=== PATIENT | female | born 1930 | race Caucasian/White ===

== ENCOUNTER 2019-09-10 07:18 | Inpatient (IN) | payer MEDICARE ==
[~2019-09-10] VITALS: Ht 160 cm; Wt 57.6 kg
--- OUTSIDE RECORDS SUMMARY | ~2019-09-10 | XMS | Encounter Summary ---
Demographics + + + | Address | [address] | | | [place] [address] | + + + | Home Phone | | + + + | Preferred Language | Unknown | + + + | Marital Status | | + + + | Yazidi Affiliation | Unknown | + + + | Race | Unknown | + + + | Ethnic Group | Unknown | + + + Author + + + | Author | [facility] | | | and [place] | + + + | Organization | [facility] | | | and [place] | + + + | Address | Unknown | + + + | Phone | Unavailable | + + + Support + + +---------+ + | Name | Relationship | Address | Phone | + + +---------+ + | Regulo Hal | ECON | Unknown | | + + +---------+ + Care Team Providers + +------+ + | Care Building Construction Teacher Name | Role | Phone | + +------+ + | Ramon Richardson MD | PCP | | + +------+ + Reason for Visit + + + | Reason | Comments | + + + | Medication Refill | | + + + Encounter Details +--------+ + + + + | Date | Type | Department | Care Team | Description | +--------+ + + + + | 11/09/ | Telephone | [facility] [place] | [place], | Medication Refill | | 2016 | | PULMONARY [address] | Corrie Bell MD | | | | | [place], | | | | | | [place] [address] | | | | | | [phone] | | | +--------+ + + + + Social History + +-------+ +--------+------+ | Tobacco Use | Types | Packs/Day | Years | Date | | | | | Used | | + +-------+ +--------+------+ | Never Smoker | | | | | + +-------+ +--------+------+ + +---+---+---+ | Smokeless Tobacco: | | | | | Never Used | | | | + +---+---+---+ + + | Comments: her parents both smoked, also worked at a [employer] | + + + + +---------+ + | Alcohol Use | Drinks/Week | oz/Week | Comments | + + +---------+ + | No | 0 Standard drinks | 0.0 | | | | or equivalent | | | + + +---------+ + + + + | Sex Assigned at | Date Recorded | | | | + + + | Not on file | | + + + + + + + | Job Start Date | Occupation | Industry | + + + + | Not on file | Not on file | Not on file | + + + + + + + + | Travel History | Travel Start | Travel End | + + + + + + | No recent travel history available. | + + documented as of this encounter Plan of Treatment Not on filedocumented as of this encounter Visit Diagnoses Not on filedocumented in this encounter"
--- OUTSIDE RECORDS SUMMARY | ~2019-09-10 | XMS | Encounter Summary ---
Demographics + + + | Address | [address] | | | [place] [address] | + + + | Home Phone | | + + + | Preferred Language | Unknown | + + + | Marital Status | | + + + | Episcopal Affiliation | Unknown | + + + | Race | Unknown | + + + | Ethnic Group | Unknown | + + + Author + + + | Author | [facility] | | | and [place] | + + + | Organization | [facility] | | | and [place] [...] Team Providers + +------+ + | Care Cruise Director Name | Role | Phone | + +------+ + | Rosaura Jaime | PCP | | | PA-C | | | + +------+ + Encounter Details +--------+ + + + + | Date | Type | Department | Care Team | Description | +--------+ + + + + | 05/06/ | Orders Only | [facility] | Provider, | | | 2018 | | [facility] GENER[facility] OP | [address] | | | | | [address] | [place] | | | | | [address] [place], [place] | [place] [address] | | | | | [address] | | | | | | [phone] | | | +--------+ + + + + Social History + +-------+ +--------+------+ | Tobacco Use | Types | Packs/Day | Years | Date | | | | | Used | | + +-------+ +--------+------+ | Passive Smoke | | | | | | Exposure - Never | | | | | | Smoker | | | | | + +-------+ +--------+------+ + +---+---+---+ | Smokeless Tobacco: | | | | | Never Used | | | | + +---+---+---+ + + +---------+ + | Alcohol Use [...]
--- OUTSIDE RECORDS SUMMARY | ~2019-09-10 | XMS | Encounter Summary ---
Demographics + + + | Address | [address] | | | [place] [address] | + + + | Home Phone | | + + + | Preferred Language | Unknown | + + + | Marital Status | | + + + | Advent Affiliation | MET | + + + | Race | White | + + + | Ethnic Group | Not or | + + + Author + + + | Author | [facility] | + + + | Organization | [facility] | + + + | Address | Unknown | + + + | Phone | Unavailable | + + + Support + + + + + | Name | Relationship | Address | Phone | + + + + + | Regulo Hong | ECON | [address] | | | | | [place], [place] | | | | | [address] | | + + + + + Care Team Providers + +------+ + | Care Forestry Engineer Name | Role | Phone | + +------+ + PCP | Unavailable | + +------+ + Encounter Details +--------+ + + + + | Date | Type | Department | Care Team | Description | +--------+ + + + + | 01/31/ | Transcribed | [facility] at | Dictation, Other | Transcribed | | 1995 | | [facility] [address] | | | | | | [address] | | | | | | Mailcode: [id number] | | | | | | [place] | | | | | | [place], | | | | | | [place] [address] | | | | | | [phone] | | | +--------+ + + + + Social History + +-------+ +--------+------+ | Tobacco Use | Types | Packs/Day | Years | Date | | | | | Used | | + +-------+ +--------+------+ | Never Assessed | | | | | + +-------+ +--------+------+ + + + | Sex Assigned at [...] + + documented as of this encounter Progress Notes Interface, Lead Tank Mechanic In - 01/04/2007 5:06 AM PDT [address] [address] or Department of Obstetrics and Gynecology, [facility] February 01, 1996 NAE DALE MD [address] [place] [address] RE: UNA HONG MR#: [id number] Dale: I am enclosing some operative reports of your patient, Una Hong. 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 She had a somewhat stormy immediate postoperative course but has subsequently done quite well. She now feels more confident about her progress. She has previously been under the care of Dr. Wren, in [place], for her hypertension and arthritis, and I have continued to see her postoperatively, where her main residual concern has been of urge incontinence that troubles her, particularly at nighttime. On today's visit, I gave her some Levsinex for use at night to see whether we could suppress some of the bladder irritability. She is going to be staying in [place] for the next month and was anxious that you should be fully informed of the recent medical events in case she needs to consult with you. Thank you for being available. If you have any questions, I could be reached at . With thanks, Yours sincerely, Hieu Robert M.D. Professor and Tank Washer, Obstetrics and Gynecology EPK:brennan C: 02/06/96 rh enclosures (2) operative report discharge summary documented in this encounter Plan of Treatment Not on filedocumented as of this encounter Visit Diagnoses Not on filedocumented in this encounter"
--- OUTSIDE RECORDS SUMMARY | ~2019-09-10 | XMS | Encounter Summary ---
Demographics + + + | Address | [address] | | | [place] [address] | + + + | Home Phone | | + + + | Preferred Language | Unknown | + + + | Marital Status | | + + + | Taoism Affiliation | Unknown | + + + | Race | Unknown | + + + | Ethnic Group | Unknown | + + + Author + + + | Author | [facility] | | | and [place] | + + + | Organization | [facility] | | | and [place] [...] Team Providers + +------+ + | Care Fleet Salesperson Name | Role | Phone | + +------+ + | Ramon Richardson MD | PCP | | + +------+ + Reason for Visit + + + | Reason | Comments | + + + | Establish Care | | + + + Evaluate & Treat (Routine) +--------+--------+ + + + + | Status | Reason | Specialty | Diagnoses / | Referred By | Referred To | | | | | Procedures | Contact | Contact | +--------+--------+ + + + + | Closed | | Pulmonology | Diagnoses | Marier, | Perri, | | | | | Chronic | Ramon Sosa, | Corrie Bell | | | | | airway | MD [address] | MD [address] | | | | | obstruction, | [address] | [address] | | | | | not | [address] | [place], | | | | | elsewhere | [place], | [place] [address] | | | | | classified | [place] | | | | | | Procedures | [address] | | | | | | NEW PT | Phone: | | | | | | CONSULT | [phone] | | | | | | | Fax: | | | | | | | [phone] | | +--------+--------+ + + + + Encounter Details +--------+---------+ + + + | Date | Type | Department | Care Team | Description | +--------+---------+ + + + | 10/20/ | Office | [facility] | Perri, | COPD (chronic | | 2014 | Visit | PULMONARY [address] | Corrie Bell MD | obstructive | | | | [place], | | pulmonary disease) | | | | [place] [address] | | ([facility]) (Primary Dx); | | | | [phone] | | Aortic valve | | | | | | stenosis | +--------+---------+ + + + Social History + +-------+ +--------+------+ | Tobacco Use | Types | Packs/Day | Years | Date | | | | | Used | | + +-------+ +--------+------+ | Never Smoker | | | | | + +-------+ +--------+------+ + + | Comments: her parents both smoked, also worked at [employer] | + + + + +---------+ + | Alcohol Use | Drinks/Week | oz/Week | Comments | + + +---------+ + | No | | | | + + +---------+ + [...] + + documented as of this encounter Last Filed Vital Signs + + + + + | Vital Sign | Reading | Time Taken | Comments | + + + + + | Blood Pressure | 124/58 | 10/20/2014 3:12 PM | | | | | PST | | + + + + + | Pulse | 92 | 10/20/2014 3:12 PM | | | | | PST | | + + + + + | Temperature | 36.4 C (97.6 F) | 10/20/2014 3:12 PM | | | | | PST | | + + + + + | Respiratory Rate | - | - | | + + + + + | Oxygen Saturation | 90% | 10/20/2014 3:12 PM | | | | | PST | | + + + + + | Inhaled Oxygen | - | - | | | Concentration | | | | + + + + + | Weight | 59.4 kg (131 lb) | 10/20/2014 3:12 PM | | | | | PST | | + + + + + | Height | 157.5 cm (5' 2") | 10/20/2014 3:12 PM | | | | | PST | | + + + + + | Body Mass Index | 23.96 | 10/20/2014 3:12 PM | | | | | PST | | + + + + + documented in this encounter Patient Instructions Patient Instructions Corrie Rayo MD - 10/20/2014 4:24 PM PSTStay on Qvar as bef ore. Start on Spiriva one capsule inhaled once daily. Start on ProAir 2 puffs inhaled every 6 hours as needed. Do an overnight oxygen test through [facility]. Call the [facility] before yo u pick it up to make sure they have a box available. You will supply chain consultant a box at the [employer]. Do the test on room air. Wear the finger probe through the night and then return the box for a download the next day. Do walking oxygen test at [facility]. Use a spacer with the Qvar and ProAir. documented in this encounter Progress Notes Corrie Rayo MD - 10/20/2014 3:32 PM PSTFormatting of this note might be differe nt from the original. Pulmonary Consult Referring Provider: Ramon Richardson MD HPI Una Hong is a 84 y.o. female patient of Ramon Richardson here today for evalua tion of COPD. She notes she was diagnosed with COPD a couple of years ago, and how long she has been on a n inhaler. She has had shortness of breath for about 2 years as well. She feels like her ovn athing has been about the same over the last 2 years. She notes she has had pneumonia and katie nolan has also has episodes of bronchitis a couple of times a year, basically any time she gets a cold. Currently they are able to walk 100 feet at their own pace on level ground, using a walker or a shopping cart to assist. The distance walked is predominately limited by shortness of b reath or back pain. One year ago, she feels that they could walk possibly a little further, maybe twice the distance. She is not exercising regularly at the moment. She was doing wate r walking, but not with the weather being cold. She does cough in the mornings when she first gets up (her thinks for 1-2 hours), a nd does produce mucous. The mucous is clear typically in color. She has not had hemoptysis. Triggers for their shortness of breath include exertion, and she notes she is more short of breath towards the end of the day. Relieving factors include relaxing. Treatments that they have tried to this point include Qvar 40 mcg 2 puffs twice daily and a rescue inhaler (she is not sure which one). Currently they are on Qvar 40 mcg 2 puffs twice daily. She thinks this has helped her some. She has been taking this for about 2 years. She has never used the rescue inhaler. She has not been evaluated for nocturnal oxygen and does not use it. She has not had ambula ting oximetry testing. Past Medical History Past Medical History Diagnosis Date COPD (chronic obstructive pulmonary disease) (HCC) Peptic ulcer disease GERD (gastroesophageal reflux disease) Hiatal hernia Hypertension Hypothyroidism Urine incontinence Aortic valve stenosis trivial Hearing loss Osteoarthritis Osteoporosis Plantar wart RLS (restless legs syndrome) Scoliosis Pneumonia Pulmonary nodule Macular degeneration Past Surgical History Past Surgical History Procedure Date Hernandez and bso 1996 Cholecystectomy 1996 Total hip arthroplasty 1988 Left Abscess drainage on calf 2002 Bladder suspension 1995 Upper gastrointestinal endoscopy 1995 Family History: Family History Problem Relation Age of Onset COPD Father Asthma Father Allergies Father Hypertension Father Tobacco Use Father Asthma Sister Hypertension Mother Stroke Mother Social History: History Social History Marital Status: Spouse Name: N/A Number of Children: N/A Years of Education: N/A 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 Social History Main Topics Smoking status: Never Smoker Smokeless tobacco: None Comment: her parents both smoked, also worked at a [employer] Alcohol Use: No Drug Use: No Sexually Active: None Other Topics Concern None Social History Narrative Lives: in [place] With: her husbandGrew up: in [place] Has previously lived in: [place], [place] Exposure to toxic chemicals: has been exposed to halon (1301) before, they had to evacuate t he computer room at the timeExposure to asbestos: noExposure to tuberculosis: no Has had a P PD or Quantiferon before: noHas pets at home: no Has ever owned birds: no Other animal expos ures: has had a dog and cat beforeHobbies: playing cards Allergies: Allergies Allergen Reactions Lisinopril Cough Medications: Outpatient Encounter Prescriptions as of 10/20/2014 Medication Sig Dispense Refill beclomethasone (QVAR) 40 mcg/puff inhaler Inhale 2 puffs into the lungs 2 times daily. benzonatate (TESSALON PERLES) 100 mg capsule Take 100 mg by mouth 3 times daily as need ed. Calcium Carbonate (CALCIUM 600 PO) Take by mouth Daily. Cholecalciferol (VITAMIN D-3) 2000 units CAPS Take by mouth Daily. diclofenac (VOLTAREN-XR) 100 mg ER tablet Take 100 mg by mouth daily (with breakfast). Diclofenac Potassium 50 MG PACK Take by mouth. Docosahexaenoic Acid (DHA OMEGA 3) 100 MG CAPS Take by mouth. levothyroxine (SYNTHROID, LEVOTHROID) 150 mcg tablet Take 150 mcg by mouth every mornin g (before breakfast). Multiple Vitamins-Minerals (MULTIVITAMIN PO) Take by mouth Daily. olmesartan-hydrochlorothiazide (BENICAR HCT) 40-25 MG per tablet Take 0.[address] tablets [address] [facility] Daily. omeprazole (PRILOSEC) 20 mg capsule Take 20 mg by mouth every morning (before breakfast ). pramipexole (MIRAPEX) 0.25 mg tablet Take 0.25 mg by mouth 3 times daily. pseudoePHEDrine (SUDAFED) 30 mg tablet Take 30 mg by mouth every 4 hours as needed. traMADol (ULTRAM) 50 mg tablet Take 50 mg by mouth every 6 hours as needed. Facility-Administered Encounter Medications as of 10/20/2014 Medication Dose Route Frequency Provider Last Rate Last Dose [COMPLETED] albuterol 2.5 mg/3 mL nebulizer solution 2.5 mg 2.5 mg Nebulization RT Onc e Corrie Rayo MD 2.5 mg at 10/20/14 1407 Review of Systems Constitutional: Denies fever, chills, sweats, and change in weight. Eyes: Denies vision change and eye irritation. ENT: Denies earache, decreased hearing, nosebleeds, sore throat, and hoarseness. She does get nasal drainage and congestion. It does not seem to be seasonal. Resp: See HPI. CV: Denies chest pain, palpitations, syncope, and peripheral edema. GI: Denies heartburn, nausea, vomiting, and abdominal pain. : She does get some urinary incontinence, but no difficulty urinating. Musculoskeletal: Denies joint swelling. Has joint stiffness and some leg cramps. Derm: Denies rash, itching, dryness, and suspicious lesions. Neurologic: Denies frequent headaches, seizures, and vertigo. She has tingling in her hand, which is related to neck arthritis. Psych: Denies depression, anxiety, and suicidal ideation. Endo: Denies cold intolerance, heat intolerance, and unusual weight change. Heme: Denies abnormal bruising, bleeding, and enlarged lymph nodes. Allergy: Denies food allergies, allergic rash. Objective BP 124/58 | Pulse 92 | Temp 36.4 C (97.6 F) (Tympanic) | Ht 1.575 m (5' 2") | Wt 59.421 kg (131 lb) | BMI 23.95 kg/m2 | SpO2 90% RA General Appearance: Alert, cooperative, no distress, appears stated age Head: Normocephalic, without obvious abnormality, atraumatic Eyes: PERRL, conjunctiva clear, no scleral icterus, EOM's intact Ears: Normal TM's, external auditory canals, slightly diminished acuity Nose: Nares normal, septum midline, mucosa normal Mouth: No oral lesions or exudate Neck: Supple, symmetrical, no adenopathy Lungs: No accessory muscle use, breath sounds are diminished bilaterally with prolongatio n of the expiratory phase, no wheezes, crackles or rhonchi Chest Wall: No deformity Heart: Regular rate and rhythm, 2/6 systolic murmur, no rub or gallop Abdomen: Soft, non-tender, non-distended Extremities: No cyanosis, clubbing, or edema Pulses: Radial pulses 2+ and symmetric Skin: Warm and dry Lymph nodes: Cervical and supraclavicular nodes normal Data: Chest x-ray done May 27, 2014 was reviewed and interpreted in clinic today. It shows a l arge non reduced hiatal hernia. Pulmonary function tests were performed prior to clinic today and were reviewed and interpr eted in clinic today. They show moderate obstructive disease with a significant response to inhaled bronchodilator on spirometry, and a moderately reduced diffusion capacity. She coul d not pant fast enough to do lung volume testing. Echocardiogram was performed on April 21, 2011 and results were reviewed in clinic today. It shows a densely sclerotic aortic valve, with a 15 mmHg gradient, mild AI, mild MR, mild TR, mild pulmonary hypertension. LV systolic function was normal with grade 1 diastolic dysfunc tion. Ramon Richardson's notes were reviewed in clinic today. Immunization History Administered Date(s) Administered PNEUMOCOCCAL POLYSACCHARIDE 23-VALENT (PPSV23) 10/20/2011 TRIVALENT INFLUENZA, PRESERATIVE FREE (PED/ADOL/ADULT) 08/14/2014 Assessment 1. COPD (chronic obstructive pulmonary disease) (HCC) - This is moderate with a significant bronchodilator effect noted, though no asthma type symptoms noted. I suggested she stay on her ICS given bronchodilator effect seen, and start on a LAAC for now, with consideration of also transitioning to a ICS/LABA inhaler as well. In addition, given borderline oxygen satu rations, I recommended ambulating oximetry and overnight oximetry testing. 2. Aortic valve stenosis - This was trivial back in 2010 with dense sclerosis noted. I do n ot think that a more recent echo has been obtained, and she does not appear to have volume i ssues on exam today, but does have a fairly prominent murmur (which could be just the sclero sis alone). If we cannot improve her symptoms, consideration could be made for repeat echoca rdiogram. Plan 1.Stay on Qvar twice daily. 2.Start on Spiriva once daily. 3.Start on ProAir 2 puffs every 6 hours as needed. 4. Check overnight oximetry on room air through [facility]. 5. Check ambulating oximetry at [facility]. 6. I recommended use of a spacer with both her Qvar and her ProAir, and this was ordered. She was advised to call if new pulmonary symptoms were to develop. Return to clinic in 2 months, or sooner with concerns. CC: Ramon Richardson MD Portions of this report were transcribed using voice recognition software. Every effort wa s made to ensure accuracy; however, inadvertent computerized dock manager errors may be pre sent. documented in t his encounter Plan of Treatment + + +--------+ + + | Name | Type | Priori | Associated Diagnoses | Order Schedule | | | | ty | | | + + +--------+ + + | Ambulating oximetry- | Respiratory | CHRIS | COPD (chronic | Expected: | | Ancillary | Care | | obstructive | 10/20/2014, Expires: | | | | | pulmonary disease) | 10/20/2015 | | | | | (HCC) | | + + +--------+ + + | Overnight oximetry, | Respiratory | Routin | COPD (chronic | Expected: | | room air | Care | e | obstructive | 10/20/2014, Expires: | | | | | pulmonary disease) | 10/20/2015 | | | | | (HCC) | | + + +--------+ + + documented as of this encounter Visit Diagnoses + + | Diagnosis | + + | COPD (chronic obstructive pulmonary disease) (HCC) - Primary Chronic airway | | obstruction, not elsewhere classified | + + | Aortic valve stenosis Aortic valve disorders | + + documented in this encounter
--- OUTSIDE RECORDS SUMMARY | ~2019-09-10 | XMS | Encounter Summary ---
Demographics + + + | Address | [address] | | | [place] [address] | + + + | Home Phone | | + + + | Preferred Language | Unknown | + + + | Marital Status | | + + + | Worship Affiliation | MET | + + + | Race | White | + + + | Ethnic Group | Not or | + + + Author + + + | Author | [facility] | + + + | Organization | [facility] | + + + | Address | Unknown | + + + | Phone | Unavailable | + + + Support + + + + + | Name | Relationship | Address | Phone | + + + + + | Regulo Hong | ECON | [address] | | | | | [place], [place] | | | | | [address] | | + + + + + Care Team Providers + +------+ + | Care High School History Teacher Name | Role | Phone | + +------+ + PCP | Unavailable | + +------+ + Encounter Details +--------+ + + + + | Date | Type | Department | Care Team | Description | +--------+ + + + + | 10/31/ | Results | LAB [facility] [address] | Reid, Faculty | | | 1995 | Only | [address] | [phone] | | | | | [place], [place] | | | | | | [address] | | | | | | [phone] | | | +--------+ + + + [...] Not on filedocumented as of this encounter Procedures + +--------+ + + + | Procedure Name | Priori | Date/Time | Associated Diagnosis | Comments | | | ty | | | | + +--------+ + + + | SURGICAL PATHOLOGY | Routin | 10/31/1995 | | Results for this | | | e | | | procedure are in the | | | | | | results section. | + +--------+ + + + documented in this encounter Results SURGICAL PATHOLOGY (10/31/1995) + + + + + + | Component | Value | Ref Range | Performed | Pathologist | | | | | At | Signature | + + + + + + | SURGICAL | SOURCE OF SPECIMEN: SEE | | [facility] | | | PATHOLOGY | RESULTS | | DEPARTMENT | | | | Preliminary | | OF | | | | History:CLINICAL | | PATHOLOGY | | | | HISTORYThe patient is a | | | | | | 65 year old | | | | | | postmenopausal female | | | | | | with | | | | | | completeprocidentia. | | | | | | She is 4 para | | | | | | 4 and does not receive | | | | | | any hormonaltherapy. | | | | | | GROSS DESCRIPTIONTwo | | | | | | specimens are received | | | | | | labelled as follows: | | | | | | #1 UTERUS AND CERVIX: | | | | | | The specimen is | | | | | | received fresh and | | | | | | consists of auterus with | | | | | | attached cervix and | | | | | | vaginal cuff weighing 50 | | | | | | grams in toto.Bilateral | | | | | | fallopian tubes, | | | | | | ovaries and parametria | | | | | | are not present. | | | | | | Theuterus and cervix | | | | | | measure 8.5 cm x 5.0 x | | | | | | 2.5 cm. The serosal | | | | | | surface issmooth, | | | | | | pink-rod and glistening. | | | | | | The uterus is opened at | | | | | | 3:00. Thevaginal cuff | | | | | | is 0.2 to 0.3 cm in | | | | | | length and has a smooth | | | | | | white-tanmucosa without | | | | | | grossly evident lesions. | | | | | | The ectocervical mucosa | | | | | | issmooth and pale rod. | | | | | | A firm nodule measuring | | | | | | 1.5 x 0.8 x 0.8 cm | | | | | | ispalpated within the | | | | | | posterior portion of the | | | | | | cervix. The cervical | | | | | | mucosais white-rod, | | | | | | smooth and glistening. | | | | | | The endometrial cavity | | | | | | istriangular and | | | | | | measures 2.5 cm in | | | | | | intercornual diameter | | | | | | and 3.5 cm inlength. The | | | | | | endometrium is | | | | | | white-rod and thin, | | | | | | measuring 1 mm | | | | | | inthickness. No focal | | | | | | lesions are seen. Serial | | | | | | cross sections reveal | | | | | | themyometrium to be | | | | | | generally rod and | | | | | | unremarkable, measuring | | | | | | 1.5 cm ingreatest | | | | | | thickness. | | | | | | Bundling Machine Operator sections | | | | | | are submitted as | | | | | | follows:Cassette A, | | | | | | posterior ectocervix; | | | | | | Cassette B, anterior | | | | | | cervix; CassetteC, full | | | | | | thickness section of | | | | | | endomyometrium; Cassette | | | | | | D, | | | | | | representativesections | | | | | | of endometrium. #2 | | | | | | VAGINAL MUCOSA: The | | | | | | specimen is received in | | | | | | formalin and consistsof | | | | | | two fragments of | | | | | | white-rod mucosa. One | | | | | | fragment measures 7.0 x | | | | | | 3.0 x0.5 cm and the | | | | | | other fragment measures | | | | | | 6.0 x 3.0 x 0.5 cm. | | | | | | The mucosalsurfaces | | | | | | are white-rod and shiny | | | | | | with no grossly visible | | | | | | lesions. Thespecimen | | | | | | is serially sectioned | | | | | | and dental sales representative | | | | | | sections are submittedin | | | | | | cassettes 2A-B. | | | | | | All tissue sections | | | | | | taken are submitted for | | | | | | microscopic | | | | | | evaluation.Case dictated | | | | | | by: Harshal Flower | | | | | | MSIII/cc/kag | | | | | | FINAL DIAGNOSISUTERUS | | | | | | AND CERVIX: CERVIX: | | | | | | NABOTHIAN CYSTS | | | | | | SQUAMOUS METAPLASIA | | | | | | HYPERKERATOSIS | | | | | | ENDOMETRIUM: NO | | | | | | DIAGNOSTIC ABNORMALITY | | | | | | MYOMETRIUM: | | | | | | ADENOMYOSISVAGINAL | | | | | | MUCOSA: NO DIAGNOSTIC | | | | | | ABNORMALITY Case | | | | | | reviewed by: Tino | | | | | | Stephen DominguezT: | | | | | | [birth year]f My | | | | | | electronic signature | | | | | | indicates that I have | | | | | | personally reviewed | | | | | | alldiagnostic slides, | | | | | | the gross and/or | | | | | | microscopic portion of | | | | | | thisreport and | | | | | | formulated the final | | | | | | diagnosis. | | | | + + + + + + + + | Specimen | + + | Other | + + + + + + + | Performing | Address | City/State/Zipcode | Phone Number | | Organization | | | | + + + + + | [facility] | [address] | [place] [address] | | | PATHOLOGY | [address] | | | + + + + + documented in this encounter Visit Diagnoses Not on filedocumented in this encounter"
--- OUTSIDE RECORDS SUMMARY | ~2019-09-10 | XMS | Encounter Summary ---
Demographics + + + | Address | [address] | | | [place] [address] | + + + | Home Phone | | + + + | Preferred Language | Unknown | + + + | Marital Status | | + + + | Advent Affiliation | Unknown | + + + | Race | Unknown | + + + | Ethnic Group | Unknown | + + + Author + + + | Author | [facility] | | | and [place] | + + + | Organization | [facility] | | | and [place] | [...] Team Providers + +------+ + | Care Setter Out Name | Role | Phone | + +------+ + | Ramon Richardson MD | PCP | | + +------+ + Encounter Details +--------+ + + + + | Date | Type | Department | Care Team | Description | +--------+ + + + + | 09/28/ | Orders Only | [facility] | [place], | COPD (chronic | | 2013 | | PULMONARY [address] | Corrie Bell MD | obstructive | | | | [place], | | pulmonary disease) | | | | [place] [address] | | ([facility]) (Primary Dx) | | | | [phone] | | | +--------+ + + + [...] Not on filedocumented as of this encounter Results PFT PULMONARY FUNCTION TESTING ORDERS Full PFT (Yony w/BD, lung volumes, diffusion)?: Yes (10/26/2014 6:25 PM PST) + + + | Narrative | Performed At | + + + | Corrie Rayo MD 10/26/2014 18:25 PULMONARY | | | FUNCTION TESTING METHOD: Spirometry was obtained pre and post | | | administration of inhaled bronchodilator. Lung volumes were not | | | obtained, as the patient was unable to pant fast enough. Diffusion | | | capacity was obtained by single breath method and was not corrected | | | for a measured hemoglobin. ATS standards were met. | | | SPIROMETRY: Prior to administration of inhaled bronchodilator, FVC | | | was normal at 2.01 L or 87% of predicted. FEV1 was moderately | | | reduced at 0.85 L or 51% of predicted. FEV1/FVC ratio was reduced at | | | 42%. After administration of inhaled bronchodilator, FVC increased | | | by 19 % to 2.38 L or 103% of predicted. FEV1 increased by 22 % to | | | 1.04 L or 63% of predicted. FEV1/FVC ratio was reduced at 44%. | | | DIFFUSION CAPACITY: Diffusion capacity was moderately reduced at | | | 10.6 mL/mmHg per minute or 54% of predicted and was not corrected | | | for a measured hemoglobin. IMPRESSION: Spirometry is consistent | | | with moderate obstructive physiology. There was a significant | | | response to inhaled bronchodilator based on change in FVC. Diffusion | | | capacity is moderately reduced and is not corrected for measured | | | hemoglobin. Electronically signed by: Corrie Rayo MD | | | 10/26/2014 18:20 [facility] CC: | | | Ramon Richardson | | + + + + + | Procedure Note | + + | Corrie Rayo MD - 10/26/2014 6:20 PM PST PULMONARY FUNCTION TESTING | | METHOD: Spirometry was obtained pre and post administration of inhaled bronchodilator. | | Lung volumes were not obtained, as the patient was unable to pant fast enough. Diffusion | | capacity was obtained by single breath method and was not corrected for a measured | | hemoglobin. ATS standards were met. SPIROMETRY: Prior to administration of inhaled | | bronchodilator, FVC was normal at 2.01 L or 87% of predicted. FEV1 was moderately | | reduced at 0.85 L or 51% of predicted. FEV1/FVC ratio was reduced at 42%. After | | administration of inhaled bronchodilator, FVC increased by 19 % to 2.38 L or 103% of | | predicted. FEV1 increased by 22 % to 1.04 L or 63% of predicted. FEV1/FVC ratio was | | reduced at 44%.DIFFUSION CAPACITY: Diffusion capacity was moderately reduced at 10.6 | | mL/mmHg per minute or 54% of predicted and was not corrected for a measured | | hemoglobin.IMPRESSION: Spirometry is consistent with moderate obstructive physiology. | | There was a significant response to inhaled bronchodilator based on change in FVC. | | Diffusion capacity is moderately reduced and is not corrected for measured | | hemoglobin.Electronically signed by: Corrie Rayo MD 10/26/2014 18:20[facility] | | [facility] | |Electronically signed by: Corrie Rayo MD 10/26/2014 18:20 | |[facility] | | | |CC: Ramon Richardson | + + documented in this encounter Visit Diagnoses + + | Diagnosis | + + | COPD (chronic obstructive pulmonary disease) (HCC) - Primary Chronic airway | | obstruction, not elsewhere classified | + + documented in this encounter"
--- OUTSIDE RECORDS SUMMARY | ~2019-09-10 | XMS | Clinical Summary ---
Demographics + + + | Address | [address] | | | [place] [address] | + + + | Home Phone | | + + + | Preferred Language | Unknown | + + + | Marital Status | | + + + | Scientology Affiliation | Unknown | + + + | Race | Unknown | + + + | Ethnic Group | Unknown | + + + Author + + + | Author | [facility] | | | and [place] | + + + | Organization | [facility] | | | and [place] | [...] Team Providers + +------+ + | Care Water Project Manager Name | Role | Phone | + +------+ + | Rosaura Jaime | PCP | | | PA-C | | | + +------+ + Allergies + + + + + + | Active Allergy | Reactions | Severity | Noted | Comments | | | | | Date | | + + + + + + | Lisinopril | Other (See Comments) | Low | 09/28/20 | Cough | | | | | 14 | | + + + + + + | Naproxen | Other (See Comments) | | 04/17/20 | Reaction not | | | | | 18 | specified in outside | | | | | | medical records | + + + + + + Medications + + + +---------+------+------+-------+ | Medication | Sig | Dispensed | Refills | Star | End | Statu | | | | | | t | Date | s | | | | | | Date | | | + + + +---------+------+------+-------+ | Calcium Carbonate | Take 600 mg by mouth | | 0 | | | Activ | | (CALCIUM 600 PO) | Daily. | | | | | e | + + + +---------+------+------+-------+ | Docosahexaenoic | Take by mouth. | | 0 | | | Activ | | Acid (DHA OMEGA 3) | | | | | | e | | 100 MG CAPS | | | | | | | + + + +---------+------+------+-------+ | Multiple | Take by mouth | | 0 | | | Activ | | Vitamins-Minerals | Daily. | | | | | e | | (MULTIVITAMIN PO) | | | | | | | + + + +---------+------+------+-------+ | omeprazole | Take 20 mg by mouth | | 0 | | | Activ | | (PRILOSEC) 20 mg | every morning | | | | | e | | capsule | (before breakfast). | | | | | | + + + +---------+------+------+-------+ | traMADol (ULTRAM) | Take 100 mg by mouth | | 0 | | | Activ | | 50 mg tablet | 4 times daily. | | | | | e | + + + +---------+------+------+-------+ | Cholecalciferol | Take by mouth | | 0 | | | Activ | | (VITAMIN D-3) 2000 | Daily. | | | | | e | | units CAPS | | | | | | | + + + +---------+------+------+-------+ | Spacer/Aero | Use with inhaler as | 1 each | 1 | 01/1 | | Activ | | Chamber Mouthpiece | directed. | | | 3/20 | | e | | MISC | | | | 15 | | | + + + +---------+------+------+-------+ | albuterol (PROAIR | Inhale 2 puffs into | 1 | 5 | 03/2 | | Activ | | HFA) 90 mcg/puff | the lungs every 6 | Inhaler | | 2/20 | | e | | inhaler | hours as needed for | | | 16 | | | | | Wheezing or | | | | | | | | Shortness of Breath. | | | | | | + + + +---------+------+------+-------+ | losartan (COZAAR) | Take 100 mg by mouth | | 0 | | | Activ | | 100 MG tablet | Daily. | | | | | e | + + + +---------+------+------+-------+ | NITROFURANTOIN | Take by mouth | | 0 | | | Activ | | MACROCRYSTAL PO | Daily. | | | | | e | + + + +---------+------+------+-------+ | DULoxetine | Take 60 mg by mouth | | 0 | | | Activ | | (CYMBALTA) [address] | Daily. | | | | | e | | capsule | | | | | | | + + + +---------+------+------+-------+ | gabapentin | Take 300 mg by mouth | | 0 | | | Activ | | (NEURONTIN) 300 mg | 3 times daily. | | | | | e | | capsule | | | | | | | + + + +---------+------+------+-------+ | | Inhale 1 puff into | | 0 | 04/1 | | Activ | | umeclidinium-vilante | the lungs. | | | 0/20 | | e | | rol (ANORO ELLIPTA) | | | | 18 | | | | 62.5-25 mcg/puff | | | | | | | | inhaler | | | | | | | + + + +---------+------+------+-------+ | diclofenac | Take 50 mg by mouth | | 0 | | | Activ | | (VOLTAREN) 50 mg EC | 2 times daily. | | | | | e | | tablet | | | | | | | + + + +---------+------+------+-------+ | pramipexole | TAKE ONE TABLET BY | 180 | 0 | 09/0 | | Activ | | (MIRAPEX) 0.25 mg | MOUTH TWICE A DAY | tablet | | 5/20 | | e | | tablet | | | | 18 | | | + + + +---------+------+------+-------+ | levothyroxine | Take 150 mcg by | | 0 | | | Activ | | (SYNTHROID) 150 mcg | mouth every morning. | | | | | e | | tablet | | | | | | | + + + +---------+------+------+-------+ | Misc Natural | Take by mouth | | 0 | | | Activ | | Products | Daily. | | | | | e | | (WCNXZX-LHYWDOROD-JS | | | | | | | | M COMPLEX) TABS | | | | | | | + + + +---------+------+------+-------+ | | Take 1 tablet by | | 0 | | | Activ | | HYDROcodone-acetamin | mouth every 6 hours | | | | | e | | ophen (NORCO) 5-325 | as needed for Pain. | | | | | | | mg per tablet | | | | | | | + + + +---------+------+------+-------+ | | Take by mouth. | | 0 | | | Activ | | GLUCOSAMINE-CHONDROI | | | | | | e | | TIN PO | | | | | | | + + + +---------+------+------+-------+ | albuterol 90 | Inhale 2 puffs into | | 0 | 02/2 | 02/2 | Activ | | mcg/puff inhaler | the lungs every 4 | | | 0/20 | 0/20 | e | | | hours as needed for | | | 19 | 20 | | | | Wheezing. | | | | | | + + + +---------+------+------+-------+ | | Inhale 1 puff into | | 0 | 07/2 | | Activ | | umeclidinium-vilante | the lungs Daily. | | | 4/20 | | e | | rol (ANORO ELLIPTA) | | | | 19 | | | | 62.5-25 mcg/puff | | | | | | | | inhaler | | | | | | | + + + +---------+------+------+-------+ Active Problems + + + | Problem | Noted Date | + + + | COPD (chronic obstructive pulmonary disease) | 09/28/2014 | + + + | GERD (gastroesophageal reflux disease) | | + + + | Hiatal hernia | | + + + | Hypertension | | + + + | Hypothyroidism | | + + + | Urinary incontinence | | + + + | Aortic valve stenosis | | + + + + + | Overview: trivial | + + + +---+ | Hearing loss | | + +---+ | Osteoarthrosis | | + +---+ | Osteoporosis | | + +---+ | RLS (restless legs syndrome) | | + +---+ | Scoliosis | | + +---+ | Macular degeneration | | + +---+ Resolved Problems + + + + | Problem | Noted | Resolved | | | Date | Date | + + + + | Cough | 09/27/20 | | | | 15 | 6 | + + + + | Need for vaccination with 13-polyvalent pneumococcal conjugate | 12/24/19 | | | vaccine | 15 | 6 | + + + + Immunizations + + + + | Name | Administration Dates | Next Due | + + + + | INFLUENZA 65 Y OR >, | 07/28/2015 | | | TRIVALENT HIGH-DOSE | | | + + + + | INFLUENZA PF 18 Y OR | 08/14/2014 | | | >,TRIVALENT | | | | RECOMBINANT | | | + + + + | PNEUMOCOCCAL | 07/19/2015 | | | CONJUGATE 13-VALENT | | | | (PCV13) | | | + + + + | PNEUMOCOCCAL | 10/20/2011 | | | POLYSACCHARIDE | | | | 23-VALENT (PPSV23) | | | + + + + | TD PF (5 LF TETANUS) | 02/03/2009 | | | (ADOL/ADULT) | | | + + + + Family History + + +------+ + | Medical History | Relation | Name | Comments | + + +------+ + | Allergies | Father | | | + + +------+ + | Asthma | Father | | | + + +------+ + | COPD | Father | | | + + +------+ + | Hypertension | Father | | | + + +------+ + | Tobacco Use | Father | | | + + +------+ + | Hypertension | Mother | | | + + +------+ + | Stroke | Mother | | | + + +------+ + | Asthma | Sister | | | + + +------+ + + +------+ + + | Relation | Name | Status | Comments | + +------+ + + | Father | | | COPD | + +------+ + + | Mother | | | old age | + +------+ + + | Sister | | Alive | | + +------+ + + Social History + +-------+ +--------+------+ [...] | | + +---+---+---+ + + | Tobacco Cessation: Counseling Given: No | + + + + +---------+ + [...] recent travel history available. | + + Last Filed Vital Signs + + + + + | Vital Sign | Reading | Time Taken | Comments | + + + + + | Blood Pressure | 115/64 | 08/22/2018 11:06 AM | | | | | PST | | + + + + + | Pulse | 77 | 08/22/2018 11:06 AM | | | | | PST | | + + + + + | Temperature | 36.8 C (98.2 F) | 04/26/2018 10:07 AM | | | | | PDT | | + + + + + | Respiratory Rate | - | - | | + + + + + | Oxygen Saturation | 97% | 12/28/2015 11:32 AM | | | | | PDT | | + + + + + | Inhaled Oxygen | - | - | | | Concentration | | | | + + + + + | Weight | 61.2 kg (135 lb) | 08/22/2018 11:06 AM | | | | | PST | | + + + + + | Height | 162.6 cm (5' 4") | 08/22/2018 11:06 AM | | | | | PST | | + + + + + | Body Mass Index | 23.17 | 08/22/2018 11:06 AM | | | | | PST | | + + + + + Plan of Treatment + + + + + | Health Maintenance | Due Date | Last Done | Comments | + + + + + | Vaccine: Zoster (1 | | | | | of 2) | 0 | | | + + + + + | Vaccine: | | 02/03/2009 | | | Dtap/Tdap/Td (1 - | 9 | | | | Tdap) | | | | + + + + + | Adult Annual | | | | | Wellness Visit | 5 | | | + + + + + | Vaccine: Influenza | | 07/28/2015, 08/14/2014 | | | (#1) | 9 | | | + + + + + | Vaccine: | Completed | 07/19/2015, 10/20/2011 | | | Pneumococcal 65+ | | | | + + + + + Results Not on filefrom Last 3 Months Insurance + +--------+ +--------+ +---------+--------+ | Payer | Benefi | Subscriber | Effect | Phone | Address | Type | | | t Plan | ID | arun | | | | | | / | | Dates | | | | | | Group | | | | | | + +--------+ +--------+ +---------+--------+ | MEDICARE | MEDICA | [id number] | 01/06/19 | [phone] | | Medica | | | RE | | 95-Pre | 5 | | re | | | PART A | | sent | | | | | | AND B | | | | | | + +--------+ +--------+ +---------+--------+ | AARP | AARP | [id number] | 10/08/19 | [phone] | | Indemn | | | MDCR | | 15-Pre | 0 | | ity | | | SUPPL | | sent | | | | + +--------+ +--------+ +---------+--------+ + +--------+ +--------+ + + | Guarantor Name | Accoun | Relation to | Date | Phone | Billing Address | | | t Type | Patient | of | | | | | | | | | | + +--------+ +--------+ + + | Una Hong | Person | Self [birth year] | [address] | | | al/Fam | | [phone] | [phone] | [place] [address] | | | leigh | | | 7 (Home) | | + +--------+ +--------+ + + Advance Directives + + + + + | Type | Date Recorded | Patient | Explanation | | | | Lpn Rn Hospice | | + + + + + | Power of | | | | | Paleobotanist | | | | + + + + + | Advance | 10/20/2014 1:04 | | | | Directive | PM | | | + + + + +
--- OUTSIDE RECORDS SUMMARY | ~2019-09-10 | XMS | Encounter Summary ---
Demographics + + + | Address | [address] | | | [place] [address] | + + + | Home Phone | | + + + | Preferred Language | Unknown | + + + | Marital Status | | + + + | Anglican Affiliation | Unknown | + + + | Race | Unknown | + + + | Ethnic Group | Unknown | + + + Author + + + | Author | [facility] | | | and [place] | + + + | Organization | [facility] | | | and [place] [...] Team Providers + +------+ + | Care Site Engineer Name | Role | Phone | + +------+ + | Rosaura Jaime | PCP | | | PAJayla | | | + +------+ + Reason for Visit + + + | Reason | Comments | + + + | Medication Refill | | + + + Encounter Details +--------+--------+ + + + | Date | Type | Department | Care Team | Description | +--------+--------+ + + + | 12/06/ | Refill | [facility] | Ben Barba | Medication Refill | | 2018 | | [facility] | E, DO [address] | | | | | [facility] [address] | [place], [place] | | | | | [address] [place], | [address] | | | | | [place] [address] | [phone] | | | | | [phone] | | | +--------+--------+ + + + Social History + +-------+ [...]
--- OUTSIDE RECORDS SUMMARY | ~2019-09-10 | XMS | Encounter Summary ---
Demographics + + + | Address | [address] | | | [place] [address] | + + + | Home Phone | | + + + | Preferred Language | Unknown | + + + | Marital Status | | + + + | Restoration Affiliation | MET | + + + | Race | White | + + + | Ethnic Group | Not or | + + + Author + + + | Author | [facility] | + + + | Organization | [facility] | + + + | Address | Unknown | + + + | Phone | Unavailable | + + + Support + + + + + | Name | Relationship | Address | Phone | + + + + + | Regulo Hong | ECON | [address] | | | | | [place], [place] | | | | | [address] | | + + + + + Care Team Providers + +------+ + | Care Sandblaster Supervisor Name | Role | Phone | + +------+ + PCP | Unavailable | + +------+ + Encounter Details +--------+ + + + + | Date | Type | Department | Care Team | Description | +--------+ + + + + | 10/30/ | Results | [facility] | [place], | | | 1995 | Only | [facility] | [address] | | | | | [address] | [address] | | | | | [place] Mailcode: | [place], [place] | | | | | [address] | [address] | | | | | [address] | | | | | | [place], [place] | | | | | | [address] | | | | | | [phone] | | | +--------+ + + + [...] | + +--------+ + + + | X-RAY ABDOMEN 2 | Routin | 11/30/1995 | | Results for this | | VIEWS | e | 2:38 PM | | procedure are in the | | | | PST | | results section. | + +--------+ + + + | X-RAY CHEST 2 VIEW | Routin | 10/30/1995 | | Results for this | | | e | 1:40 PM | | procedure are in the | | | | PST | | results section. | + +--------+ + + + documented in this encounter Results ABDOMEN 2 VIEWS (11/30/1995 2:38 PM PST) + + + + + + | Component | Value | Ref Range | Performed | Pathologist | | | | | At | Signature | + + + + + + | ABDOMEN, 2 | Radiologist 1: Treva BAILON | | | | [facility] | [facility] [place] | | | | | | Stephen-Radiologist 2: | | | | | | CHERYL ISBELL | | | | | | NINFA MENENDEZ | | | | | | | | | | | | | | | | | | [phone] | | | | | | ABDOMINAL, TWO VIEWS: | | | | | | 11-30-95 Dictated: | | | | | | 12-01-95 FINDINGS: No | | | | | | previous films are | | | | | | available for | | | | | | comparison. The | | | | | | previously described | | | | | | 1-1/2 cm pulmonary | | | | | | nodule in the left | | | | | | lungbase is again noted. | | | | | | On supine examination | | | | | | gas is present in | | | | | | bothnondilated loops of | | | | | | both large and small | | | | | | bowel with a moderate | | | | | | amountof stool present | | | | | | in the ascending colon | | | | | | and cecal region. Gas | | | | | | ispresent in the rectum. | | | | | | On the upright | | | | | | examination no air fluid | | | | | | levelsare identified. | | | | | | There is a severe | | | | | | scoliosis of the lumbar | | | | | | spine withthe convexity | | | | | | oriented to the left. | | | | | | A moderate amount of | | | | | | sclerosisadjacent to the | | | | | | endplates of the lumbar | | | | | | vertebral bodies in the | | | | | | regionof facet joints | | | | | | consistent with | | | | | | degenerative disease. | | | | | | Left total | | | | | | hiparthroplasty is seen. | | | | | | There is a focal | | | | | | calcification | | | | | | presentoverlying the | | | | | | left renal shadow in the | | | | | | region of the mid to | | | | | | lower polemeasuring | | | | | | approximately 4 mm. No | | | | | | abnormal calcifications | | | | | | are seenwithin the | | | | | | pelvis. IMPRESSION: 1. | | | | | | 1-1/2 cm pulmonary | | | | | | nodule in the left lung | | | | | | base. Comparison | | | | | | tomore remote chest | | | | | | radiographs is | | | | | | recommended to assess | | | | | | for stability. 2. | | | | | | Probable left renal | | | | | | calculus. 3. | | | | | | Nonspecific bowel gas | | | | | | pattern without evidence | | | | | | of obstruction | | | | | | orperforation. 4. 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 | | | | | | END OF IMPRESSION: | | | | + + + + + + + + | Specimen | + + | | + + + +---------+ + + | Performing | Address | City/State/Zipcode | Phone Number | | Organization | | | | + +---------+ + + | [facility] DEPARTMENT OF | | | | | RADIOLOGY | | | | + +---------+ + + CHEST 2 VIEW (10/30/1995 1:40 PM PST) + + + + + + | Component | Value | Ref Range | Performed | Pathologist | | | | | At | Signature | + + + + + + | CHEST, 2 | Radiologist 1: AUREA, | | | | | [place] | JOLIE | | | | | RIZWAN | J.-Radiologist 2: VAN | | | | | | IRENE PAEZ, | | | | | | NINFA GANNON | | | | | | | | | | | | | | | | | | [birth year] CHEST, | | | | | | 2 VIEWS: 10/30/95 at | | | | | | 1340 hrs Dictated: | | | | | | 11/02/95 COMPARISON: | | | | | | No previous films are | | | | | | available for | | | | | | comparison. FINDINGS: | | | | | | If prior chest | | | | | | radiographs are | | | | | | available, they would | | | | | | behelpful for comparing | | | | | | to the current study, | | | | | | which the | | | | | | RadiologyDepartment can | | | | | | do if these old films | | | | | | could be provided. Lung | | | | | | volumes are normal. | | | | | | Cardiomediastinal | | | | | | silhouette | | | | | | isunremarkable without | | | | | | evidence of | | | | | | lymphadenopathy. The | | | | | | righthemidiaphragm is | | | | | | somewhat eventrated. | | | | | | No pleural effusion | | | | | | orpneumothorax is | | | | | | identified. A 1.5 x 1.5 | | | | | | cm lung nodule is noted | | | | | | within the mid left | | | | | | lower lobe.This is | | | | | | suspicious for | | | | | | metastatic disease | | | | | | versus primary lung | | | | | | lesion. IMPRESSION: 1. | | | | | | 1.5 x 1.5 cm left | | | | | | lower lobe lung nodule. | | | | | | 2. The lungs are | | | | | | otherwise grossly clear. | | | | | | END OF IMPRESSION: | | | | + + + + + + + + | Specimen | + + | | + + + +---------+ + + | Performing | Address | City/State/Zipcode | Phone Number | | Organization | | | | + +---------+ + + | [facility] DEPARTMENT OF | | | | | RADIOLOGY | | | | + +---------+ + + documented in this encounter Visit Diagnoses Not on filedocumented in this encounter"
--- OUTSIDE RECORDS SUMMARY | ~2019-09-10 | XMS | Clinical Summary ---
Demographics + + + | Address | [address] | | | [place] [address] | + + + | Home Phone | | + + + | Preferred Language | Unknown | + + + | Marital Status | | + + + | Scientologist Affiliation | MET | + + + | Race | White | + + + | Ethnic Group | Not or | + + + Author + + + | Organization | Unknown | + + + | Address | Unknown | + + + | Phone | Unavailable | + + + Support + + + + + | Name | Relationship | Address | Phone | + + + + + | Regulo Hong | ECON | [address] | | | | | [place], [place] | | | | | [address] | | + + + + + Care Team Providers + +------+ + | Care Machine Strap Buckler Name | Role | Phone | + +------+ + PCP | Unavailable | + +------+ + Source Comments STONE is fully live on both [facility] and [facility] Allergies No Known Allergies Medications Not on file Active Problems Not on file Social History + +-------+ +--------+------+ | Tobacco [...] | + + Last Filed Vital Signs Not on file Plan of Treatment + + + + + | Health Maintenance | Due Date | Last Done | Comments | + + + + + | Pneumococcal | | | | | vaccination (1 of 2 | 5 | | | | - PCV13) | | | | + + + + + | Influenza (Flu) | | | | | vaccination (#1) | 9 | | | + + + + + Results Not on filefrom Last 3 Months"
--- OUTSIDE RECORDS SUMMARY | ~2019-09-10 | XMS | Encounter Summary ---
Demographics + + + | Address | [address] | | | [place] [address] | + + + | Home Phone | | + + + | Preferred Language | Unknown | + + + | Marital Status | | + + + | Yazidi Affiliation | MET | + + + | Race | White | + + + | Ethnic Group | Not or | + + + Author + + + | Author | [facility] | + + + | Organization | [facility] | + + + | Address | Unknown | + + + | Phone | Unavailable | + + + Support + + + + + | Name | Relationship | Address | Phone | + + + + + | Regulo Hong | ECON | [address] | | | | | [place], [place] | | | | | [address] | | + + + + + Care Team Providers + +------+ + | Care Sales & Service Associate Name | Role | Phone | + +------+ + PCP | Unavailable | + +------+ + Encounter Details +--------+ + + + + | Date | Type | Department | Care Team | Description | +--------+ + + + + | 11/13/ | Transcribed | Allergy Clinic at | Dictation, Other | Transcribed | | 1995 | | [facility] [address] | | | | | | [address] | | | | | | Mailcode: [id number] Preet | | | | | | [address] | | | | | | [place], | | | | | | [place] [address] | | | | | | [phone] | | | +--------+ + + + [...] as of this encounter Progress Notes Interface, Nat Instructor In - 01/09/2007 6:36 AM PDT [address] [address] or Department of Obstetrics and Gynecology, L466 [facility] November 13, 1995 MIKEY VAZQUEZ MD [address] [place] [address] RE:Una Hong MR#:[id number] Dear Doctor Vazquez: I saw Una Hong in the office today for a postoperative visit. Ms. Hong's surgery was unfortunately complicated by a massive intraperitoneal hemorrhage that occurred approximately twelve hours after surgery was completed. It was necessary to take her back to the Operating Room, and perform a laparotomy to control the bleeding. No specific bleeding points were identified but a large hemoperitoneum and retroplacental clot was evacuated. Following this she made a steady recovery and was discharged home six days postoperatively. The surgery reports of the primary surgery and emergency surgery are accompanying this letter. She has been staying with her daughter since the surgery and is making slow but satisfactory progress. She had some transitory urge incontinence postoperatively but this seems to be improving. She was also troubled by abdominal discomfort and constipation. Her bowel function is now normal but she still has some residual abdominal discomfort. The abdominal wound has healed well and vaginal support seems quite adequate, with no evidence of infection in the vaginal incisions. She is going to stay in the [place] area with her daughter for one more week, before returning to [place]. I much appreciate the original referral of this patient. I am sorry that her posoperative course was stormy and complicated but she seems to be doing well now and I hope that her further progress will be uncomplicated. With thanks and best wishes, Hieu Robert M.D. Professor and Coal Yard Supervisor, Obstetrics and Gynecology DEON/lexie P documented in this encounter Plan of Treatment Not on filedocumented as of this encounter Visit Diagnoses Not on filedocumented in this encounter"
--- OUTSIDE RECORDS SUMMARY | ~2019-09-10 | XMS | Encounter Summary ---
Demographics + + + | Address | [address] | | | [place] [address] | + + + | Home Phone | | + + + | Preferred Language | Unknown | + + + | Marital Status | | + + + | Jain Affiliation | Unknown | + + + | Race | Unknown | + + + | Ethnic Group | Unknown | + + + Author + + + | Author | [facility] | | | and [place] | + + + | Organization | [facility] | | | and [place] [...] Team Providers + +------+ + | Care Shared Services And Outsourcing Manager Name | Role | Phone | [...] Description | +--------+--------+ + + + | 09/05/ | Refill | BORA HUFFMAN | Ben Barba | Medication Refill | | 2017 | | [facility] | E, DO [address] | | | | | MEDICAL CLIN[facility] [address] | [place], [place] | | | | | [address] [place], | [address] | | | | | [place] [address] | [phone] | | | | | [phone] | | | +--------+--------+ + + + [...]
--- OUTSIDE RECORDS SUMMARY | ~2019-09-10 | XMS | Encounter Summary ---
Demographics + + + | Address | [address] | | | [place] [address] | + + + | Home Phone | | + + + | Preferred Language | Unknown | + + + | Marital Status | | + + + | Shinto Affiliation | Unknown | + + + | Race | Unknown | + + + | Ethnic Group | Unknown | + + + Author + + + | Author | [facility] | | | and [place] | + + + | Organization | [facility] | | | and [place] [...] Team Providers + +------+ + | Care U.S. Commissioner Name | Role | Phone | + +------+ + | Ramon Richardson MD | PCP | | + +------+ + Reason for Referral Evaluate & Treat (Routine) +--------+ + + + + + | Status | Reason | Specialty | Diagnoses / | Referred By | Referred To | | | | | Procedures | Contact | Contact | +--------+ + + + + + | Closed | Specialty | Physical | Diagnoses | | [address] | | | Services | Therapy | Leg | Perri, | [place]OT[place] | | | Required | | weakness, | Corrie Bell, | HOSPITAL | | | | | bilateral | [address] | | | | | Chronic | [address] | [address] | | | | | obstructive | [place], | [place], [place] | | | | | pulmonary | [place] [address] | [address] | | | | | disease, | | Phone: | | | | | unspecified | | [phone] | | | | | COPD type | | Fax: | | | | | ([facility]) | | [phone] | | | | | Procedures | | | | | | | CO PHYS | | | | | | | THERAPY | | | | | | | EVALUATION | | | | | | | CO | | | | | | | THERAPEUTIC | | | | | | | EXERCISES | | | +--------+ + + + + + Reason for Visit +--------+ + | Reason | Comments | +--------+ + | COPD | 3 month follow up | +--------+ + Encounter Details +--------+---------+ + + + | Date | Type | Department | Care Team | Description | +--------+---------+ + + + | 12/27/ | [facility] | [facility] [place] | [place], | Chronic obstructive | | 2016 | Visit | PULMONARY [address] | Corrie Bell MD | pulmonary disease, | | | | [place], | | unspecified COPD | | | | [place] [address] | | type (HCC); | | | | [phone] | | Gastroesophageal | | | | | | reflux disease, | | | | | | esophagitis presence | | | | | | not specified; Leg | | | | | | weakness, bilateral | +--------+---------+ + + + Social History [...] | Tobacco Cessation: Counseling Given: No | | Comments: her parents both smoked, also worked at [employer] | + + + + +---------+ + [...] + + + | Blood Pressure | 110/64 | 12/28/2015 11:32 AM | | | | | PDT | | + + + + + | Pulse | 78 | 12/28/2015 11:32 AM | | | | | PDT | | + + + + + | Temperature | - | - | | + [...] Weight | 61.2 kg (135 lb) | 12/28/2015 11:32 AM | | | | | PDT | | + + + + + | Height | 162.6 cm (5' 4") | 12/28/2015 11:32 AM | | | | | PDT | | + + + + + | Body Mass Index | 23.17 | 12/28/2015 11:32 AM | | | | | PDT | | + + + + + documented in this encounter Patient Instructions Patient Instructions Corrie Rayo MD - 12/28/2015 12:29 PM PDTI am ordering the w arm water therapy for at the [facility]. I would ask the therapist if they can do a wheelchair evaluation through [facility] and have them let us know, or call us so we can order one there or here. Stay on the Spiriva once daily. I reordered the albuterol (ProAir) to use as needed as well . You might see Dr. Richardson about the hand/wrist and see if some other brace might allow you t o more easily get in and out of the chair. documented in this encounter Progress Notes Corrie Rayo MD - 12/28/2015 11:36 AM PDTFormatting of this note might be differe nt from the original. Pulmonary Follow Up HPI Una Hong is a 85 y.o. female patient of Ramon Richardson MD here today for foll ow up of COPD. At their last visit, we had ordered Incruse in place of the Spiriva, but this was denied by the insurance. Since their last visit she feels like she has been doing overall pretty stab le. She has not had any acute illnesses. She notes that she has not woken up at night with coughing in several months. She does coug h some when she first wakes up and is bringing up greyish in color. She is not coughing duri ng the daytime. She is currently on a regimen of Spiriva one capsule inhaled daily. She is not using the r escue inhaler at all, but thinks she should be using it about 2-3 times a week. She returns today for routine follow up. She has been out of breath a couple of times, for example when she is getting ready for bed , or during the daytime. She would like to get a new rescue inhaler as her current ProAir in [facility] is quite old. She notes if she sits and rests, her breathing gets better. She has to w alk with a walker all the time, and is not doing as much walking as she should, mostly becau se of her legs. She has also had a lot of family stressors, losing a grandchild, and her hus band having heart surgery recently. She does think physical therapy would help, and would li ke to do this once her is more stable. She has been evaluated for nocturnal oxygen and does not need to use it. She sleeps with her head elevated 6 inches at night and is on the omeprazole daily. She is not noticing the heartburn right now. Past Medical History Past Medical History Diagnosis Date COPD (chronic obstructive pulmonary disease) (HCC) Peptic ulcer disease GERD (gastroesophageal reflux disease) Hiatal hernia Hypertension Hypothyroidism Urine incontinence Aortic valve stenosis trivial Hearing loss Osteoarthritis Osteoporosis Plantar wart RLS (restless legs syndrome) Scoliosis Pneumonia Pulmonary nodule Macular degeneration bilateral now Past Surgical History Past Surgical History Procedure Laterality Date Hernandez and bso 1996 Cholecystectomy 1996 Total hip arthroplasty Left 1989 Abscess drainage on calf 2003 Bladder suspension 1995 Upper gastrointestinal endoscopy 1996 Social History: History Social History Marital Status: Spouse Name: N/A Number of Children: N/A Years of Education: N/A 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 Social History Main Topics Smoking status: Never Smoker Smokeless tobacco: Never Used Comment: her parents both smoked, also worked at [employer] Alcohol Use: No Drug Use: No Sexual Activity: Not on file Other Topics Concern None Social History Narrative Lives: in [place] With: her Grew up: in [place] Has previously lived in: [place], [place] Exposure to toxic chemicals: has been exposed to halon (1301) before, they had to evacuate the computer room at the time Exposure to asbestos: no Exposure to tuberculosis: no Has had a PPD or Quantiferon before: no Has pets at home: no Has ever owned birds: no Other animal exposures: has had a dog and cat before Hobbies: playing cards Allergies: Allergies Allergen Reactions Lisinopril Cough Medications: Outpatient Encounter Prescriptions as of 12/28/2015 Medication Sig Dispense Refill albuterol (PROAIR HFA) 90 mcg/puff inhaler Inhale 2 puffs into the lungs every 6 hours as needed for Wheezing or Shortness of Breath. 1 Inhaler 5 benzonatate (TESSALON PERLES) 100 mg capsule Take 100 mg by mouth 3 times daily as need ed. Calcium Carbonate (CALCIUM 600 PO) Take by mouth Daily. Cholecalciferol (VITAMIN D-3) 2000 units CAPS Take by mouth Daily. Docosahexaenoic Acid (DHA OMEGA 3) 100 MG CAPS Take by mouth. gabapentin (NEURONTIN) 300 mg capsule Take 300 mg by mouth 2 times daily. levothyroxine (SYNTHROID, LEVOTHROID) 150 mcg tablet Take 150 mcg by mouth every mornin g (before breakfast). Multiple Vitamins-Minerals (MULTIVITAMIN PO) Take by mouth Daily. [DISCONTINUED] olmesartan-hydrochlorothiazide (BENICAR HCT) 40-25 MG per tablet Take 0. 5 tablets by mouth Daily. omeprazole (PRILOSEC) 20 mg capsule Take 20 mg by mouth every morning (before breakfast ). pramipexole (MIRAPEX) 0.25 mg tablet Take 0.25 mg by mouth nightly. pseudoePHEDrine (SUDAFED) 30 mg tablet Take 30 mg by mouth every 4 hours as needed. Spacer/Aero Chamber Mouthpiece MISC Use with inhaler as directed. 1 each 1 tiotropium (SPIRIVA) 18 mcg inhalation capsule Inhale 1 capsule into the lungs Daily. 3 0 capsule 11 traMADol (ULTRAM) 50 mg tablet Take 50 mg by mouth every 6 hours as needed. No facility-administered encounter medications on file as of 12/28/2015. Review of Systems: General: []Weight loss/gain (over 10 lbs) []Fever/chills/sweats []Night sweats EENT: []Hearing loss []Vision loss/change []Sinus congestion/nasal drainage []Nosebleeds [ x]Hoarseness - "by the end of the day once in awhile" Cardiac: []Chest pain []Palpitations/heart racing []Swelling of legs/ankles []Waking up at night s hort of breath []Difficulty sleeping flat Gastrointestinal: []Nausea/vomiting []Difficulty swallowing [x]Heartburn/acid reflux - on Omeprazole []Loss of appetite []Abdominal pain Urologic: []Blood in urine []Frequent urination at night []Burning/painful urination [x]Difficulty wi th urination - incontinence Objective BP 110/64 mmHg | Pulse 78 | Ht 1.626 m (5' 4") | Wt 61.236 kg (135 lb) | BMI 23.16 kg/m2 | SpO2 97% | ? No RA General Appearance: Alert, cooperative, no distress, appears stated age, in a wheelchair, accompanied by her Head: Normocephalic, without obvious abnormality, atraumatic Eyes: PERRL, conjunctiva clear, no scleral icterus, EOM's intact Ears: Normal TM's, external auditory canals, normal acuity Nose: Nares normal, septum midline, mucosa normal Mouth: No oral lesions or exudate Neck: Supple, symmetrical, no adenopathy Lungs: No accessory muscle use, breath sounds are diminished bilaterally with prolongatio n of the expiratory phase, no wheezes, crackles or rhonchi Chest Wall: No deformity Heart: Regular rate and rhythm, no murmur, rub or gallop Abdomen: Soft, non-tender, non-distended Extremities: No cyanosis, clubbing, 1+ bilateral lower extremity edema Pulses: Radial pulses 2+ and symmetric Skin: Warm and dry Lymph nodes: Cervical and supraclavicular nodes normal Data: Immunization History Administered Date(s) Administered INFLUENZA, HIGH DOSE SEASONAL (ADULT) 07/28/2015 INFLUENZA, TRIVALENT PRESERVATIVE FREE (PED/ADOL/ADULT) 08/14/2014 PNEUMOCOCCAL CONJUGATE 13-VALENT (PCV13) 07/19/2015 PNEUMOCOCCAL POLYSACCHARIDE 23-VALENT (PPSV23) 10/20/2011 Assessment ICD-10-CM ICD-9-CM 1. Chronic obstructive pulmonary disease, unspecified COPD type (HCC) J44.9 496 Symptoms lori nolan well controlled on Spiriva alone, with good control of cough and dyspnea (though not very active due to leg issues). We will try to get her in to PT to increase her activity. Ambulatory referral to Physical Therapy 2. Gastroesophageal reflux disease, esophagitis presence not specified K21.9 530.81 This se ems to be controlled with her bed elevated, and on medication. 3. Leg weakness, bilateral M62.81 729.89 Notes this is a big factor in her walking more. Rae nolan is interested in doing PT again as she lost a lot of ground with being less active surroun ding recent events. I referred her to warm water therapy at the [facility], I also suggested a whee lchair evaluation so she can get in and out the chair more easily without a hand injury (rec ently sustained). They will inquire if this can be done there, and call. Ambulatory referral to Physical Therapy Plan 1.Continue Spiriva once daily. 2.Referred for warm water therapy at the [facility]. 3.Ask if wheelchair evaluation can be done at the [facility], and if not we can order here. 4. Continue on omeprazole with lifestyle measures to control reflux as well. 5. I asked her to ask Dr. Richardson if a brace for her hand/wrist would help the pain so she c an get out of her wheelchair more easily. She was advised to call if new pulmonary symptoms were to develop. Return to clinic as needed. CC: Ramon Richardson MD Portions of this report were transcribed using voice recognition software. Every effort wa s made to ensure accuracy; however, inadvertent computerized seed production field supervisor errors may be pre sent. documented in this encounter Plan of Treatment + + +--------+ + + | Name | Type | Priori | Associated Diagnoses | Order Schedule | | | | ty | | | + + +--------+ + + | Ambulatory referral | Outpatient | Routin | Leg weakness, | Ordered: 12/28/2015 | | to Physical Therapy | Referral | e | bilateral Chronic | | | | | | obstructive | | | | | | pulmonary disease, | | | | | | unspecified COPD | | | | | | type (HCC) | | + + +--------+ + + documented as of this encounter Visit Diagnoses + + | Diagnosis | + + | Chronic obstructive pulmonary disease, unspecified COPD type (HCC) | + + | Gastroesophageal reflux disease, esophagitis presence not specified | + + | Leg weakness, bilateral Other musculoskeletal symptoms referable to limbs | + + documented in this encounter
--- OUTSIDE RECORDS SUMMARY | ~2019-09-10 | XMS | Encounter Summary ---
Demographics + + + | Address | [address] | | | [place] [address] | + + + | Home Phone | | + + + | Preferred Language | Unknown | + + + | Marital Status | | + + + | Bahai Affiliation | Unknown | + + + | Race | Unknown | + + + | Ethnic Group | Unknown | + + + Author + + + | Author | [facility] | | | and [place] | + + + | Organization | [facility] | | [...] Team Providers + +------+ + | Care Museum Archivist Name | Role | Phone | + +------+ + | Ramon Richardson MD | PCP | | + +------+ + Encounter Details +--------+ + + + + | Date | Type | Department | Care Team | Description | +--------+ + + + + | 10/20/ | [facility] | [facility] | [place], | COPD (chronic | | 2015 | Encounter | MED CTR PUL[facility] | Corrie Bell MD | obstructive | | | | FUNCTION [address] | | pulmonary disease) | | | | [place] [address], | | ([facility]) | | | | [place] [address] | | | | | | [phone] | | | +--------+ + + + + Social History + +-------+ +--------+------+ | Tobacco Use | Types | Packs/Day | Years | Date | | | | | Used | | + +-------+ +--------+------+ | Never Smoker | | | | | + +-------+ +--------+------+ + + | Comments: her parents both smoked, also worked at [employer] | + + + + [...] + + documented as of this encounter Medications at Time of Discharge + + + +---------+ + + | Medication | Sig | Dispensed | Refills | Start | End Date | | | | | | Date | | + + + +---------+ + + | Calcium Carbonate | Take 600 mg by mouth | | 0 | | | | (CALCIUM 600 PO) | Daily. | | | | | + + + +---------+ + + | Cholecalciferol | Take by mouth | | 0 | | | | (VITAMIN D-3) 2000 | Daily. | | | | | | units CAPS | | | | | | + + + +---------+ + + | Docosahexaenoic | Take by mouth. | | 0 | | | | Acid (DHA OMEGA 3) | | | | | | | 100 MG CAPS | | | | | | + + + +---------+ + + | Multiple | Take by mouth | | 0 | | | | Vitamins-Minerals | Daily. | | | | | | (MULTIVITAMIN PO) | | | | | | + + + +---------+ + + | omeprazole | Take 20 mg by mouth | | 0 | | | | (PRILOSEC) 20 mg | every morning | | | | | | capsule | (before breakfast). | | | | | + + + +---------+ + + | Spacer/Aero | Use with inhaler as | 1 each | 1 | 10/20/19 | | | Chamber Mouthpiece | directed. | | | 15 | | | MISC | | | | | | + + + +---------+ + + | traMADol (ULTRAM) | Take 100 mg by mouth | | 0 | | | | 50 mg tablet | 4 times daily. | | | | | + + + +---------+ + + | albuterol (PROAIR | Inhale 2 puffs into | 1 | 5 | 10/20/19 | | | HFA) 90 mcg/puff | the lungs every 6 | Inhaler | | 15 | 6 | | inhaler | hours as needed for | | | | | | | Wheezing or | | | | | | | Shortness of Breath. | | | | | + + + +---------+ + + | beclomethasone | Inhale 2 puffs into | | 0 | | | | (QVAR) 40 mcg/puff | the lungs 2 times | | | | 5 | | inhaler | daily. | | | | | + + + +---------+ + + | benzonatate | Take 100 mg by mouth | | 0 | | | | (OKSANA ATKINS) | 3 times daily as | | | | 8 | | 100 mg capsule | needed. | | | | | + + + +---------+ + + | diclofenac | Take 100 mg by mouth | | 0 | | | | (VOLTAREN-XR) 100 mg | daily (with | | | | 5 | | ER tablet | breakfast). | | | | | + + + +---------+ + + | Diclofenac | Take by mouth. | | 0 | | | | Potassium 50 MG PACK | | | | | 5 | + + + +---------+ + + | levothyroxine | Take 150 mcg by | | 0 | | | | (SYNTHROID, | mouth every morning | | | | 8 | | LEVOTHROID) 150 mcg | (before breakfast). | | | | | | tablet | | | | | | + + + +---------+ + + | | Take 0.5 tablets by | | 0 | | | | olmesartan-hydrochlo | mouth Daily. | | | | 6 | | rothiazide (BENICAR | | | | | | | HCT) 40-25 MG per | | | | | | | tablet | | | | | | + + + +---------+ + + | pramipexole | Take 0.25 mg by | | 0 | | | | (MIRAPEX) 0.25 mg | mouth 2 times daily. | | | | 8 | | tablet | | | | | | + + + +---------+ + + | pseudoePHEDrine | Take 30 mg by mouth | | 0 | | | | (SUDAFED) 30 mg | every 4 hours as | | | | 8 | | tablet | needed. | | | | | + + + +---------+ + + | tiotropium | Inhale 1 capsule | 30 | 11 | 10/20/19 | | | (SPIRIVA HANDIHALER) | into the lungs | capsule | | 15 | 5 | | 18 mcg inhalation | Daily. | | | | | | capsule | | | | | | + + + +---------+ + + documented as of this encounter Plan of Treatment Not on filedocumented as of this encounter Procedures + +--------+ + + + | Procedure Name | Priori | Date/Time | Associated Diagnosis | Comments | | | ty | | | | + +--------+ + + + | PFT PULMONARY | CHRIS | 10/26/2014 | COPD (chronic | Results for this | | FUNCTION TESTING | | 6:25 PM | obstructive | procedure are in the | | ORDERS | | PST | pulmonary disease) | results section. | | | | | ([facility]) | | + +--------+ + + + | PFT PULMONARY | CHRIS | 10/26/2014 | COPD (chronic | Results for this | | FUNCTION TESTING | | 6:25 PM | obstructive | procedure are in the | | ORDERS | | PST | pulmonary disease) | results section. | | | | | (HCC) | | + +--------+ + + + | PFT PULMONARY | CHRIS | 10/26/2014 | COPD (chronic | Results for this | | FUNCTION TESTING | | 6:25 PM | obstructive | procedure are in the | | ORDERS | | PST | pulmonary disease) | results section. | | | | | (HCC) | | + +--------+ + + + | DIAGNOSTIC REPORT - | | 10/20/2014 | | | | EXTERNAL SCAN | | 12:00 AM | | | | | | PST | | | + +--------+ + + + documented in this encounter Results PFT PULMONARY FUNCTION TESTING ORDERS Full PFT ([place] w/BD, lung volumes, diffusion)?: Yes (10/26/2014 6:25 [...] Rayo MD | | | [facility] | | | Ramon Richardson | [...] Corrie Rayo MD [facility]/26/2014 [facility]20[facility] | |Electronically signed by: Corrie Rayo MD 10/26/2014 18:20 | |[facility] | | | |CC: Ramon Richardson | + + documented in this encounter Visit Diagnoses + + | Diagnosis | + + | COPD (chronic obstructive pulmonary disease) (HCC) Chronic airway obstruction, not | | elsewhere classified | + + documented in this encounter Administered Medications + +--------+ +--------+------+------+ | Medication Order | MAR | Action | Dose | Rate | Site | | | Action | Date | | | | + +--------+ +--------+------+------+ | albuterol 2.5 mg/3 mL nebulizer | Given | 10/20/19 | 2.5 mg | | | | solution 2.5 mg 2.5 mg, | | 15 2:07 | | | | | Nebulization, RT Once, Tue | | PM PST | | | | | 10/20/14 at 1430, For 1 dose, RT | | | | | | | will administer., | | | | | | + +--------+ +--------+------+------+ +---+---+ | | | +---+---+ documented in this encounter"
--- OUTSIDE RECORDS SUMMARY | ~2019-09-10 | XMS | Encounter Summary ---
Demographics + + + | Address | [address] | | | [place] [address] | + + + | Home Phone | | + + + | Preferred Language | Unknown | + + + | Marital Status | | + + + | Adventist Affiliation | Unknown | + + + | Race | Unknown | + + + | Ethnic Group | Unknown | + + + Author + + + | Author | [facility] | | | and Shunana | + + + | Organization | [facility] | | | and [...] Providers + +------+ + | Care Sales Representative Livestock Name | Role | Phone | + +------+ + | Ramon Richardson MD | PCP | | + +------+ + Encounter Details +--------+ + + + + | Date | Type | Department | Care Team | Description | +--------+ + + + + | 04/16/ | Abstract | [facility] [place] | Chon Dickens, | | | 2017 | | PHYSIATRY [address] | [address] | | | | | [place], | [place] | | | | | [place] [address] | [id number] | | | | | [phone] | | | +--------+ + + + [...] her parents both smoked, also worked at [employer] | + + + + +---------+ + [...]
--- OUTSIDE RECORDS SUMMARY | ~2019-09-10 | XMS | Encounter Summary ---
Demographics + + + | Address | [address] | | | [place] [address] | + + + | Home Phone | | + + + | Preferred Language | Unknown | + + + | Marital Status | | + + + | Adventist Affiliation | Unknown | + + + | Race | Unknown | + + + | Ethnic Group | Unknown | + + + Author + + + | Author | [facility] | | | and Shunana | + + + | Organization | [facility] | | | and [place] [...] Team Providers + +------+ + | Care Test Rack Operator Name | Role | Phone | + +------+ + | Ramon Richardson MD | PCP | | + +------+ + Reason for Visit +--------+ + | Reason | Comments | +--------+ + | Other | PT | +--------+ + Encounter Details +--------+ + + + + | Date | Type | Department | Care Team | Description | +--------+ + + + + | 01/23/ | Telephone | [facility] [place] | Perri, | Other (PT) | | 2015 | | PULMONARY [address] | Corrie Bell MD | | | | | [place], | | | | | | [place] [address] | | | | | | [phone] | | | +--------+ + + + [...] her parents both smoked, also worked at [employer] | + + + + +---------+ + [...]
--- OUTSIDE RECORDS SUMMARY | ~2019-09-10 | XMS | Encounter Summary ---
Demographics + + + | Address | [address] | | | [place] [address] | + + + | Home Phone | | + + + | Preferred Language | Unknown | + + + | Marital Status | | + + + | Oriental Orthodox Affiliation | Unknown | + + + | Race | Unknown | + + + | Ethnic Group | Unknown | + + + Author + + + | Author | [facility] | | | and Shunana | + + + | Organization | [facility] | | | and [...] Team Providers + +------+ + | Care Roustabout Crew Name | Role | Phone | + [...] Description | +--------+--------+ + + + | 06/12/ | Refill | [facility] | [place]ba | Medication Refill | | 2017 | | [facility] | E, DO [address] | | | | | MEDICAL CLIN[address] | [place], [place] | | | | | [address] [place], | [address] | | | | | [place] [address] | [phone] | | | | | [phone] | | | +--------+--------+ + + + [...]
--- OUTSIDE RECORDS SUMMARY | ~2019-09-10 | XMS | Encounter Summary ---
Demographics + + + | Address | [address] | | | [place] [address] | + + + | Home Phone | | + + + | Preferred Language | Unknown | + + + | Marital Status | | + + + | Protestant Affiliation | Unknown | + + + | Race | Unknown | + + + | Ethnic Group | Unknown | + + + Author + + + | Author | [facility] | | | and Shunana | + + + | Organization | [facility] | | | and [...] Team Providers + +------+ + | Care Tumbling Instructor Name | Role | Phone | + +------+ + | Ramon Richardson MD | PCP | | + +------+ + Reason for Visit +--------+ + | Reason | Comments | +--------+ + | COPD | | +--------+ + Encounter Details +--------+---------+ + + + | Date | Type | Department | Care Team | Description | +--------+---------+ + + + | 12/23/ | Office | [facility] | Perri, | COPD (chronic | | 2015 | Visit | PULMONARY [address] | Corrie Bell MD | obstructive | | | | [place], | | pulmonary disease) | | | | [place] [address] | | ([facility]); Need for | | | | [phone] | | vaccination with | | | | | | 13-polyvalent | | | | | | pneumococcal | | | | | | conjugate vaccine | +--------+---------+ + + + Social History + +-------+ +--------+------+ | Tobacco Use | Types | Packs/Day | Years | Date | | | | | Used | | + +-------+ +--------+------+ | Never Smoker | | | | | + +-------+ +--------+------+ + + | Comments: her parents both smoked, also worked at [employer]. | + + + + +---------+ + [...] + + + | Blood Pressure | 132/78 | 12/23/2014 12:44 PM | | | | | PDT | | + + + + + | Pulse | 107 | 12/23/2014 12:44 PM | | | | | PDT | | + + + + + | Temperature | - | - | | + + + + + | Respiratory Rate | - | - | | + + + + + | Oxygen Saturation | 96% | 12/23/2014 12:44 PM | | | | | PDT | | + + + + + | Inhaled Oxygen | - | - | | | Concentration | | | | + + + + + | Weight | 62.2 kg (137 lb 3.2 | 12/23/2014 12:44 PM | | | | oz) | PDT | | + + + + + | Height | 157.5 cm (5' 2") | 12/23/2014 12:44 PM | | | | | PDT | | + + + + + | Body Mass Index | 25.09 | 12/23/2014 12:44 PM | | | | | PDT | | + + + + + documented in this encounter Patient Instructions Patient Instructions Corrie Rayo MD - 12/23/2014 1:11 PM PDTCall the insurance and find out if Incruse would be less expensive than the Spiriva. You can also ask if the Sp iriva Respimat is covered as it may be easier to use with your hand arthritis. Go ahead and stop the Qvar. If you have more breathing problems off of this, let me know. I would recommend that you get a Prevnar 13 vaccine. You can get this at Dr. Richardson's offic e or at a local pharmacy. 1 :35 PM PDT documented in this encounter Progress Notes Corrie Rayo MD - 12/23/2014 1:04 PM PDTFormatting of this note might be differe nt from the original. Pulmonary Follow Up HPI Una Hong is a 84 y.o. female patient of Ramon Richardson here today for follow up of COPD. At their last visit, we had started her on Spiriva, checked a ambulating oximetry, and an o vernight oximetry. Since their last visit she feels like she has been doing much better. She had a cold for a couple of weeks and had to take antibiotics and cold medicine at the end o october. She is currently on a regimen of Spiriva one capsule inhaled daily and Qvar twice daily. S he does feel like this medication regimen is working for them. She has not used the ProAir a t all since last seen. She came close to using it twice when she was cooking wright. She retu rns today for routine follow up. Currently she is able to walk several hundred feet at her own pace on level ground. She is not exercising regularly. She had been exercising up until about a month ago when she got si ck. Other than when she has been sick, since being on the Spiriva, she has not been sick. She has not had hemoptysis. She has been evaluated for nocturnal oxygen and does not need to use it. She has been evalu ated for daytime oxygen and does not need to use it. She did have a shot in her eye yesterday in [facility]. Past Medical History Past Medical History Diagnosis Date COPD (chronic obstructive pulmonary disease) (HCC) Peptic ulcer disease GERD (gastroesophageal reflux disease) Hiatal hernia Hypertension Hypothyroidism Urine incontinence Aortic valve stenosis trivial Hearing loss Osteoarthritis Osteoporosis Plantar wart RLS (restless legs syndrome) Scoliosis Pneumonia Pulmonary nodule Macular degeneration bilateral now Past Surgical History Past Surgical History Procedure Laterality Date Hernandez and bso 1995 Cholecystectomy 1995 Total hip arthroplasty Left 1988 Abscess drainage on calf 2002 Bladder suspension 1995 Upper gastrointestinal endoscopy 1995 Social History: History Social History Marital Status: Spouse Name: N/A Number of Children: N/A Years of Education: N/A 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 1 Inhaler 12 albuterol (PROAIR HFA) 90 mcg/puff inhaler Inhale 2 puffs into the lungs every 6 hours as needed for Wheezing or Shortness of Breath. 1 Inhaler 5 beclomethasone (QVAR) 40 mcg/puff inhaler Inhale 2 [...] MG per tablet Take 0.5 tablets by mo uth Daily. omeprazole (PRILOSEC) 20 mg capsule Take 20 mg by mouth every morning (before breakfast ). pramipexole (MIRAPEX) 0.25 mg tablet Take 0.25 mg by mouth 3 times daily. pseudoePHEDrine (SUDAFED) 30 mg tablet Take 30 mg by mouth every 4 hours as needed. Spacer/Aero Chamber Mouthpiece MISC Use with inhaler as directed. 1 each 1 tiotropium (SPIRIVA HANDIHALER) 18 mcg inhalation capsule Inhale 1 capsule into the shilo gs Daily. 30 capsule 11 traMADol (ULTRAM) 50 mg tablet Take 50 mg by mouth every 6 hours as needed. No facility-administered encounter medications on file as of 12/23/2014. Review of Systems: General: []Weight loss/gain (over 10 lbs) []Fever/chills/sweats []Night sweats EENT: [x]Hearing loss - has hearing aides [x]Vision loss/change- slight []Sinus congestion/ramon al drainage []Nosebleeds [x]Hoarseness- improved Cardiac: [x]Chest pain- mild when she had some shortness of breath []Palpitations/heart racing []Sw elling of legs/ankles []Waking up at night short of breath Gastrointestinal: []Nausea/vomiting []Difficulty swallowing []Heartburn/acid reflux []Loss of appetite []Abdo javier pain Urologic: []Blood in urine []Frequent urination at night []Burning/painful urination []Difficulty wit h urination Objective BP 132/78 | Pulse 107 | Ht 1.575 m (5' 2") | Wt 62.234 kg (137 lb 3.2 oz) | BMI 25.09 k g/m2 | SpO2 96% RA General Appearance: Alert, cooperative, no distress, appears stated age Head: Normocephalic, without obvious abnormality, atraumatic Eyes: PERRL, conjunctiva clear, no scleral icterus, EOM's intact Ears: Wearing hearing aides, fairly normal acuity Nose: Nares normal, septum midline, mucosa normal Mouth: No oral lesions or exudate Neck: Supple, symmetrical, no adenopathy Lungs: No accessory muscle use, breath sounds are slightly diminished bilaterally, no whe ezes, crackles or rhonchi Chest Wall: No deformity Heart: Regular rate and rhythm, occasional premature beat, no murmur, rub or gallop Abdomen: Soft, non-tender, non-distended Extremities: No cyanosis, clubbing, trace ankle edema bilaterally Pulses: Radial pulses 2+ and symmetric Skin: Warm and dry Lymph nodes: Cervical and supraclavicular nodes normal Data: Overnight oximetry was done on October 25, 2014 on room air and was reviewed and interprete d in clinic today. It shows she spent 87 minutes with a saturation less than 88 %. Most of t his time is noted to be artifactual. Ambulating oximetry was done on November 02, 2014 and was reviewed and interpreted in clinic today. It shows she desaturated to 92% on exertion. Immunization History Administered Date(s) Administered PNEUMOCOCCAL POLYSACCHARIDE 23-VALENT (PPSV23) 10/20/2011 TRIVALENT INFLUENZA, PRESERATIVE FREE (PED/ADOL/ADULT) 08/14/2014 Assessment 1. COPD (chronic obstructive pulmonary disease) (HCC) - Doing well on Spiriva, though her c o pay is high. I suggested we stop the Qvar as she did not get much benefit from it. In beto tion, I asked her to see if the Spiriva Respimat is covered as this may be easier for her to use or to see if Incruse is less expensive. 2. Need for vaccination with 13-polyvalent pneumococcal conjugate vaccine - Prevnar 13 give n today in accordance with updated guidelines. Plan 1.Continue Spiriva Handihaler for now, explore Spiriva Respimat and Incruse as alternatives . 2. Prevnar 13 given today in accordance with updated guidelines. 3.Stop Qvar. 4. Continue to use albuterol as needed. She was advised to call if new pulmonary symptoms were to develop. Return to clinic in 6 months, or sooner with concerns. CC: Ramon Richardson Portions of this report were transcribed using voice recognition software. Every effort wa s made to ensure accuracy; however, inadvertent computerized cleaner errors may be pre sent. documented in t his encounter Plan of Treatment Not on filedocumented as of this encounter Visit Diagnoses + + | Diagnosis | + + | COPD (chronic obstructive pulmonary disease) (HCC) Chronic airway obstruction, not | | elsewhere classified | + + | Need for vaccination with 13-polyvalent pneumococcal conjugate vaccine | + + documented in this encounter
--- OUTSIDE RECORDS SUMMARY | ~2019-09-10 | XMS | Encounter Summary ---
Demographics + + + | Address | [address] | | | [place] [address] | + + + | Home Phone | | + + + | Preferred Language | Unknown | + + + | Marital Status | | + + + | Congregation Affiliation | Unknown | + + + | Race | Unknown | + + + | Ethnic Group | Unknown | + + + Author + + + | Author | [facility] | | | and Shunana | + + + | Organization | [facility] | | | and [...] Team Providers + +------+ + | Care Spike Driver Name | Role | Phone | + +------+ + | Rosaura Jaime | PCP | | | PA-C | | | + +------+ + Encounter Details +--------+ + + + + | Date | Type | Department | Care Team | Description | +--------+ + + + + | 08/20/ | Abstract | [facility] | Provider, | | | 2017 | | PHYSIATRY [address] | [address] | | | | | [place] | [place] | | | | | [place] [address] | [place] [address] | | | | | [phone] | | | +--------+ + + + [...]
--- OUTSIDE RECORDS SUMMARY | ~2019-09-10 | XMS | Encounter Summary ---
Demographics + + + | Address | [address] | | | [place] [address] | + + + | Home Phone | | + + + | Preferred Language | Unknown | + + + | Marital Status | | + + + | Restorationism Affiliation | Unknown | + + + | Race | Unknown | + + + | Ethnic Group | Unknown | + + + Author + + + | Author | [facility] | | | and Shunana | + + + | Organization | [facility] | | | and [place] [...] Team Providers + +------+ + | Care Staff Mechanical Engineer Name | Role | Phone | [...] MD | obstructive | | | | [place], | | pulmonary disease) | | | | [place] [address] | | ([facility]); Need for | | | | [phone] | | vaccination with | | | [...] her parents both smoked, also worked at [employer] | + + + + +---------+ + [...] a shot in her eye yesterday in [facility]. 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 documented in [...]
--- OUTSIDE RECORDS SUMMARY | ~2019-09-10 | XMS | Encounter Summary ---
Demographics + + + | Address | [address] | | | [place] [address] | + + + | Home Phone | | + + + | Preferred Language | Unknown | + + + | Marital Status | | + + + | Druze Affiliation | Unknown | + + + | Race | Unknown | + + + | Ethnic Group | Unknown | + + + Author + + + | Author | [facility] | | | and Shunana | + + + | Organization | [facility] | | | and [...] Team Providers + +------+ + | Care Disaster Recovery Analyst Name | Role | Phone | + [...] Description | +--------+--------+ + + + | 10/04/ | Refill | [facility] | [place]ba | Medication Refill | | 2017 | | [facility] | E, DO [address] | | | | | MEDICAL CL[address] | [place], [place] | | | | | [address] [place], | [address] | | | | | [place] [address] | [phone] | | | | | [phone] | | | +--------+--------+ + + + [...]
--- OUTSIDE RECORDS SUMMARY | ~2019-09-10 | XMS | Encounter Summary ---
Demographics + + + | Address | [address] | | | [place] [address] | + + + | Home Phone | | + + + | Preferred Language | Unknown | + + + | Marital Status | | + + + | Baptist Affiliation | MET | + + + | Race | White | + + + | Ethnic Group | Not or | + + + Author + + + | Author | [facility] | + + + | Organization | [facility] | + + + | Address | Unknown | + + + | Phone | Unavailable | + + + Support + + + + + | Name | Relationship | Address | Phone | + + + + + | Regulo Hong | ECON | [address] | | | | | [place], [place] | | | | | [address] | | + + + + + Care Team Providers + +------+ + | Care Card Dealer Name | Role | Phone | + +------+ + PCP | Unavailable | + +------+ + Encounter Details +--------+ + + + + | Date | Type | Department | Care Team | Description | +--------+ + + + + | 01/31/ | Transcribed | Allergy Clinic at | Dictation, Other | Transcribed | | 1995 | | [facility] [address] | | | | | | [address] | | | | | | Mailcode: [id number] | | | | | | [place] | | | | | | [place], | | | | | | [place] [address] | | | | | | [phone] | | | +--------+ + + + [...] as of this encounter Progress Notes Interface, Gas Welder Apprentice In - 01/04/2007 5:06 AM PDT [address] [address] or Department of Obstetrics and Gynecology, [facility] February 01, 1996 NAE DALE MD [address] [place] [address] RE: UNA HONG MR#: [id number] [...] under the care of Dr. Wren, in [place], for her hypertension and arthritis, and I have continued to see her postoperatively, where her main residual concern has been of urge incontinence that troubles her, particularly at nighttime. On today's visit, I gave her some Levsinex for use at night to see whether we could suppress some of the bladder irritability. She is going to be staying in [place] for the next month and was anxious that you should be fully informed of the recent medical events in case she needs to consult with you. Thank you for being available. If you have any questions, I could be reached at . With thanks, Yours sincerely, Hieu Robert M.D. Professor and Tree Surgeon, Obstetrics and Gynecology EPK:brennan C: 02/06/96 rh enclosures (2) operative report discharge summary documented in this encounter Plan of Treatment Not on filedocumented as of this encounter Visit Diagnoses Not on filedocumented in this encounter"
--- OUTSIDE RECORDS SUMMARY | ~2019-09-10 | XMS | Encounter Summary ---
Demographics + + + | Address | [address] | | | [place] [address] | + + + | Home Phone | | + + + | Preferred Language | Unknown | + + + | Marital Status | | + + + | Latter-Day Affiliation | MET | + + + | Race | White | + + + | Ethnic Group | Not or | + + + Author + + + | Author | [facility] | + + + | Organization | [facility] | + + + | Address | Unknown | + + + | Phone | Unavailable | + + + Support + + + + + | Name | Relationship | Address | Phone | + + + + + | Regulo Hong | ECON | [address] | | | | | [place], [place] | | | | | [address] | | + + + + + Care Team Providers + +------+ + | Care Chief Payroll Clerk Name | Role | Phone | + +------+ + PCP | Unavailable | + +------+ + Encounter Details +--------+ + + + + | Date | Type | Department | Care Team | Description | +--------+ + + + + | 11/20/ | Office | General Internal | Note, Outpatient | Progress Note | | 1995 | Visit-Trans | Medicine [address] | Clinic | | | | [address] | [address] | | | | | | Mailcode: [id number] | | | | | | Outpatient Clinic | | | | | | [place] | | | | | | [place], [place] | | | | | | [address] | | | | | | [phone] | | | +--------+ + + + [...] as of this encounter Progress Notes Interface, Branch Chief In - 01/09/2007 6:36 AM PDT CLINIC DATE: 11/20/95 [facility] The patient is seen for her second postoperative visit on 11/20/95. She continues to make satisfactory although rather slow progress following her recent hospital admission at which time she had a pelvic floor repair including vaginal hysterectomy and sacrospinous fixation. Her surgery was complicated by intraperitoneal bleed requiring laparotomy. She continues to stay with her daughter in [place] and is becoming more active, has a reasonable appetite and normal bowel function. She continues to report some urgency and urge incontinence. On examination, the abdominal wound is well-healed. There are no local areas of induration, though there is still some tenderness on palpation of the rectus muscle. The patient still needs a fair amount of pain medication and is moving cautiously. Overall, however, she appears to be making a slow but steady and satisfactory postoperative recovery. She will remain in the [place] area for a few more days before returning to [place]. A further follow-up appointment has not been given but the patient has been asked to report back by phone to clinic before she returns to [place]. Hieu Robert M.D. Professor and Access Rn Obstetrics and Gynecology MARIBELLK:romain cc: JLUIS VAZQUEZ MD [address] [place] [address] [address] [place] [address] documented in this encounter Plan of Treatment Not on filedocumented as of this encounter Visit Diagnoses Not on filedocumented in this encounter"
--- OUTSIDE RECORDS SUMMARY | ~2019-09-10 | XMS | Encounter Summary ---
Demographics + + + | Address | [address] | | | [place] [address] | + + + | Home Phone | | + + + | Preferred Language | Unknown | + + + | Marital Status | | + + + | Sikh Affiliation | Unknown | + + + | Race | Unknown | + + + | Ethnic Group | Unknown | + + + Author + + + | Author | [facility] | | | and Shunana | + + + | Organization | [facility] | | | and [place] [...] Team Providers + +------+ + | Care Marbleizer Name | Role | Phone | + +------+ + PCP | Unavailable | + +------+ + Encounter Details +--------+ + + + + | Date | Type | Department | Care Team | Description | +--------+ + + + + | 10/21/ | Hospital | [facility] | James Munguia | | | 2007 | Encounter | MED CTR XRAY [address] | [address] | | | | | [place] | [place] [address] | | | | | [place] [address] | [place] [address] | | | | | [phone] | [phone] | | | | | | | | +--------+ + + + [...]
--- OUTSIDE RECORDS SUMMARY | ~2019-09-10 | XMS | Encounter Summary ---
Demographics + + + | Address | [address] | | | [place] [address] | + + + | Home Phone | | + + + | Preferred Language | Unknown | + + + | Marital Status | | + + + | Mandaeism Affiliation | Unknown | + + + | Race | Unknown | + + + | Ethnic Group | Unknown | + + + Author + + + | Author | [facility] | | | and Shunana | + + + | Organization | [facility] | | | and [place] [...] Team Providers + +------+ + | Care Flower Pot Press Operator Name | Role | Phone | [...] Bell MD | | | | | [place], | | | | | | [place] [address] | | | | | | [phone] | | | +--------+ + + + [...]
--- OUTSIDE RECORDS SUMMARY | ~2019-09-10 | XMS | Encounter Summary ---
Demographics + + + | Address | [address] | | | [place] [address] | + + + | Home Phone | | + + + | Preferred Language | Unknown | + + + | Marital Status | | + + + | Sabianist Affiliation | MET | + + + | Race | White | + + + | Ethnic Group | Not or | + + + Author + + + | Author | [facility] | + + + | Organization | [facility] | + + + | Address | Unknown | + + + | Phone | Unavailable | + + + Support + + + + + | Name | Relationship | Address | Phone | + + + + + | Regulo Hong | ECON | [address] | | | | | [place], [place] | | | | | [address] | | + + + + + Care Team Providers + +------+ + | Care Mortgage Loan Closer Name | Role | Phone | + +------+ + PCP | Unavailable | + +------+ + Encounter Details +--------+ + + + + | Date | Type | Department | Care Team | Description | +--------+ + + + + | 03/11/ | Office | General Internal | Note, Outpatient | Progress Note | | 1995 | Visit-Trans | Medicine [address] | Clinic | | | | criyung | [address] | | | | | | Mailcode: L475 | | | | | | Outpatient Clinic | | | | | | [place] | | | | | | [place], [place] | | | | | | [address] | | | | | | [phone] | | | +--------+ + + + [...] as of this encounter Progress Notes Interface, Oral Hygienist In - 01/02/2007 3:07 AM PDT CLINIC DATE: 03/11/96 [facility] SUBJECTIVE: Ms. Hong returns to the [facility], having herself just returned from a trip to [place]. She reports that her energy levels continue to improve but she still has concerns regarding bladder function. She also has concerns regarding sweating of feet that has not improved with an increase in dose of Hygroton. With specific regard to bladder function, she describes relatively normal function during the day with no incontinence of urine, either of the urge or stress variety. However, at night time she finds that when she wakes at night and moves to go to the bathroom she voids immediately on standing. This is a very specific history, again suggesting an urge type of incontinence rather than stress incontinence. She also continues to be aware of some abdominal discomfort. PHYSICAL EXAMINATION: Examination does not demonstrate any urinary stress incontinence by simple examination, although there is some descensus of the anterior vaginal wall and urethra. The vaginal vault, however, is well supported, as is the posterior wall of the vagina. IMPRESSION: Ms. Hong continues to make progress, although the residual urge incontinence is frustrating. It is recommended that she continue with Levsinex over the next month or so and that she restart estrogen therapy and she also spent some time with Loreto Byrd to discuss behavioral modification to assist with this urge incontinence problem. A letter is also written to her caustic room operator in [place], Dr. Vega. Hieu Robert M.D. Professor and Head Girls Golf Coach, Obstetrics and Gynecology EPK:jerod C: 03/17/96 C2: 03/25/96 av cc: YIN VEGA MD INTERNAL MEDICINE [address] [place] [address] documented in this encounter Plan of Treatment Not on filedocumented as of this encounter Visit Diagnoses Not on filedocumented in this encounter"
--- OUTSIDE RECORDS SUMMARY | ~2019-09-10 | XMS | Encounter Summary ---
Demographics + + + | Address | [address] | | | [place] [address] | + + + | Home Phone | | + + + | Preferred Language | Unknown | + + + | Marital Status | | + + + | Gnosticism Affiliation | Unknown | + + + | Race | Unknown | + + + | Ethnic Group | Unknown | + + + Author + + + | Author | [facility] | | | and Shunana | + + + | Organization | [facility] | | | and [...] Team Providers + +------+ + | Care Paper Plate Machine Tender Name | Role | Phone | + [...] MD | obstructive | | | | [place], | | pulmonary disease) | | | | [place] [address] | | ([facility]) (Primary Dx) | | | | [phone] | | | +--------+ + + + [...] Rayo MD | | | 10/26/2014 18:20 [facility] CC: | | | Ramon [...] Corrie Rayo MD 10/26/2014 18:20[facility] | [facility] Ram[facility] | |Electronically signed by: Corrie Rayo MD 10/26/2014 18:20 | |[facility] | | | |CC: Ramon Richardson | + + documented in this encounter Visit Diagnoses + + | Diagnosis | + + | COPD (chronic obstructive pulmonary disease) (HCC) - Primary Chronic airway | | obstruction, not elsewhere classified | + + documented in this encounter"
--- OUTSIDE RECORDS SUMMARY | ~2019-09-10 | XMS | Encounter Summary ---
Demographics + + + | Address | [address] | | | [place] [address] | + + + | Home Phone | | + + + | Preferred Language | Unknown | + + + | Marital Status | | + + + | Hinduism Affiliation | Unknown | + + + | Race | Unknown | + + + | Ethnic Group | Unknown | + + + Author + + + | Author | [facility] | | | and Shunana | + + + | Organization | [facility] | | | and [place] [...] Team Providers + +------+ + | Care Certified Registered Dental Assistant Name | Role | Phone | + [...] MD | obstructive | | | | [place], | | pulmonary disease) | | | | [place] [address] | | ([facility]) (Primary Dx) | | | | [phone] | | | +--------+ + + + [...] Rayo MD | | | 10/26/2014 18:[address] [facility] CC: | | | Ramon Richardson [...] Corrie Rayo MD 10/26/2014 18:20[facility] | | [facility] Ramon [facility] | |Electronically signed by: Corrie Rayo MD 10/26/2014 18:20 | |[facility] | | | |CC: Ramon Richardson | + + documented in this encounter Visit Diagnoses + + | Diagnosis | + + | COPD (chronic obstructive pulmonary disease) (HCC) - Primary Chronic airway | | obstruction, not elsewhere classified | + + documented in this encounter"
--- OUTSIDE RECORDS SUMMARY | ~2019-09-10 | XMS | Encounter Summary ---
Demographics + + + | Address | [address] | | | [place] [address] | + + + | Home Phone | | + + + | Preferred Language | Unknown | + + + | Marital Status | | + + + | Religion Affiliation | MET | + + + | Race | White | + + + | Ethnic Group | Not or | + + + Author + + + | Author | [facility] | + + + | Organization | [facility] | + + + | Address | Unknown | + + + | Phone | Unavailable | + + + Support + + + + + | Name | Relationship | Address | Phone | + + + + + | Regulo Hong | ECON | [address] | | | | | [place], [place] | | | | | [address] | | + + + + + Care Team Providers + +------+ + | Care Buffing Wheel Presser Name | Role | Phone | + +------+ + PCP | Unavailable | + +------+ + Encounter Details +--------+ + + + + | Date | Type | Department | Care Team | Description | +--------+ + + + + | 11/01/ | Procedure - | Digestive Health | Record, Operation | Operative Report | | 1995 | | [facility] [address] | | | | | Transcribed | [address] [address] | | | | | | Mailcode: Center | | | | | | [facility] | | | | | | [facility], [address] | | | | | | [place], [place] | | | | | | [address] | | | | | | [phone] | | | +--------+ + + + [...] | + +--------+ + + + | OPERATION RECORD | | 11/01/1995 | | Results for this | | | | 12:00 AM | | procedure are in the | | | | PST | | results section. | + +--------+ + + + documented in this encounter Results OPERATION RECORD (11/01/1995 12:00 AM PST) + + | Procedure Note | + + | 11/01/1995 12:00 AM [facility] | | [facility] | | [address] [place] [place], [place] [address] | | [facility] | | | | OPERATION RECORD | | | | Med Rec No.: [id number] Date: 11/01/95 | | | | Name: Una Hong | | | | | | ATTENDING SURGEON: Hieu Robert M.D. | | Professor and Oil Well Service Operator Helper, | | Obstetrics and Gynecology | | | | PRINT SHOP CHIEF CLERK(S): Haley Lucas M.D. | | Resident, Obstetrics and Gynecology | | | | PREOPERATIVE DIAGNOSIS(ES): Intraperitoneal versus retroperitoneal bleed | | status post vaginal hysterectomy with | | sacrospinous fixation. | | | | POSTOPERATIVE DIAGNOSIS(ES): Intraperitoneal hemorrhage from left pelvic | | vascular pedicle. | | | | OPERATION(S) PERFORMED: Examination under anesthesia with | | exploratory laparotomy and bilateral | | salpingo-oophorectomy. | | | | SPECIMEN(S) REMOVED: Bilateral adnexa. | | | | ANESTHESIA: General endotracheal anesthesia. | | | | INDICATIONS: The patient is a 56-year-old woman who | | underwent a total vaginal hysterectomy with | | sacrospinous fixation and an | | anterior colporrhaphy on October 31, 1995. During her postoperative period, | | she developed hypotension with tachycardia and relative oliguria. Her | | abdominal exam became increasingly tender in the postoperative period. Her | | postoperative hematocrit was 24.3. | | | | FINDINGS: Examination under anesthesia did not reveal | | a pelvic hematoma. There was a 1.5 liter | | hemoperitoneum. No | | obvious bleeding site was identified. However, there was a hematoma along | | the left broad ligament. | | | | PROCEDURE: General anesthesia was administered. The | | patient was placed in low dorsolithotomy | | position. Brief examination | | under anesthesia was performed with no evidence of a pelvic hematoma. A | | laparotomy was initiated. The patient was sterilely prepped and draped. | | | | A Pfannenstiel incision was made and carried down through the subcutaneous | | tissue to the fascia. The fascia was scored in the midline. The fascial | | incision was carried laterally. The fascia was dissected off the rectus | | muscles. The rectus muscles were bluntly divided in the midline. The | | peritoneum was tented up. Hemoperitoneum was evident. The peritoneal | | cavity was entered and approximately 1.5 liters of blood clot was evacuated | | from the peritoneum. After copious irrigation, the bowel was packed. The | | vascular pedicles were inspected along the right side. All the vascular | | pedicles were intact. The tube and ovary on the right looked normal, and | | there was no retroperitoneal hemorrhage. On the left side, there was a left | | pelvic sidewall hematoma. The round ligament on the left was ligated with 0 | | Vicryl suture. The retroperitoneal space was opened and clot was evacuated. | | | | At this point, the left infundibulopelvic ligament was clamped, cut, and | | doubly ligated with 0 Vicryl suture. The left adnexa was removed. The left | | uterine artery pedicle was identified and re-ligated with 0 Vicryl suture, | | although this area was not obviously bleeding. On the right side, the | | infundibulopelvic ligament was isolated, clamped, cut, and doubly ligated | | with 0 Vicryl suture. The right adnexa was removed. | | | | Copious irrigation was used. There were no bleeding points in the pelvis. | | All the vascular pedicles were inspected and were hemostatic. The base of | | the bladder was inspected and it was hemostatic as was the vaginal cuff. | | The abdomen was irrigated again. The self-retaining retractor was withdrawn | | as well as the lap sponges. A Damian-Mcmillan drain was placed in the | | intraperitoneal cavity and sewn in with 2-0 nylon suture. The fascia was | | closed with a running suture of 0 Vicryl from corner to midline. The | | subcutaneous tissue was irrigated, and the skin was closed with 4-0 Vicryl | | running suture. | | | | The patient was transferred in stable condition to the Post Anesthesia Care | | Unit. Sponge and needle counts were announced as correct. | | | | Estimated blood loss was 2 liters. The patient received 6 units of packed | | red blood cells, 3 units of fresh frozen plasma, and 4 liters of | | Crystalloid. There were no apparent complications. | | | | | | | | Stephen Paulino M.D. | | Resident, Obstetrics & Gynecology Professor and Oil Well Service Operator Helper, | | Obstetrics and Gynecology | | | | MMFranki/nancy | | | | P | | | | cc: | | | | | | | | YIN VEGA MD | | [address] [facility] [address] | | [place] [address] | | | | | | | | MIKEY VAZQUEZ MD | | [address] | | [place] [address] | | | + + documented in this encounter Visit Diagnoses Not on filedocumented in this encounter"
--- OUTSIDE RECORDS SUMMARY | ~2019-09-10 | XMS | Encounter Summary ---
Demographics + + + | Address | [address] | | | [place] [address] | + + + | Home Phone | | + + + | Preferred Language | Unknown | + + + | Marital Status | | + + + | Christian Affiliation | MET | + + + | Race | White | + + + | Ethnic Group | Not or | + + + Author + + + | Author | [facility] | + + + | Organization | [facility] | + + + | Address | Unknown | + + + | Phone | Unavailable | + + + Support + + + + + | Name | Relationship | Address | Phone | + + + + + | Regulo Hong | ECON | [address] | | | | | [place], [place] | | | | | [address] | | + + + + + Care Team Providers + +------+ + | Care Shell Fisherman Name | Role | Phone | + +------+ + PCP | Unavailable | + +------+ + Encounter Details +--------+ + + + + | Date | Type | Department | Care Team | Description | +--------+ + + + + | 11/06/ | Discharge | Allergy Clinic at | Summary, Discharge | D/C Summary ODDS | | 1995 | Summary-Tra | [facility] [address] | | | | | nscribed | [address] | | | | | | Mailcode: [address] | | | | | | [place] | | | | | | [place] [facility] | | | | | | [place] [address] | | | | | | [phone] | | | +--------+ + + + [...] + + documented as of this encounter Discharge Summaries Interface, Vc++ Developer In - 01/07/2007 7:57 AM PDT [address] [address] [facility] MEDICAL SUMMARY OF HOSPITALIZATION Med Rec No.: [id number] Admission Date: 10/31/95 Name: Una Hong Discharge Date: 11/06/95 STAFF PHYSICIAN: Hieu Robert M.D. Professor and Street Sprinkler, Obstetrics and Gynecology PRINCIPAL FINAL DIAGNOSIS: 1. Complete procidentia. ADDITIONAL DIAGNOSIS(ES): 2. Cystocele. 3. Hemoperitoneum. PRINCIPAL PROCEDURE: 1. Total vaginal hysterectomy with sacrospinous fixation. ADDITIONAL PROCEDURES: 2. Anterior colporrhaphy 3. Exploratory laparotomy. 4. Bilateral salpingo-oophorectomy. 5. Transfusion of blood products. 6. Arterial line placement. REASON FOR ADMISSION: The patient is a 65-year-old 6 para 4-0-2-4 woman who has been postmenopausal for many years. She is referred from Dr. Monroe Vazquez in [place] [address] for complete procidentia. SIGNIFICANT HISTORY: A Pap smear on September 07, 1995 which demonstrated endometrial cells. This was performed two days after Provera withdrawal. The patient has not been on hormone replacement therapy. Endometrial biopsy with endocervical curettage was obtained and was negative. Mammogram and electrocardiogram (EKG) performed on September 07 were normal. 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 This is uncomfortable and often requires reduction to void and has made intercourse uncomfortable. PAST SURGERIES: Tonsillectomy and adenoidectomy as a child, dilation and curettage times two, left hip replacement in 1988. PAST MEDICAL HISTORY: 1) Arthritis treated with nonsteroidals. 2) Hypertension for over ten years. 3) Peptic ulcer disease exacerbated by acids. 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 MEDICATIONS: Hygroton, 25 mg p.o. q. day. K-Dur, 16 milliequivalents p.o. q. day. Zantac, 150 mg p.o. b.i.d. Calcium, 1200 mg q. day. Synthroid, 0.125 mg per week. Cardura, 2 mg q. day. Voltaren, 75 mg b.i.d. PAST OBSTETRIC HISTORY: Significant for four normal spontaneous vaginal deliveries without complication and two miscarriages. PHYSICAL EXAMINATION: GENERAL: Pleasant, in no acute distress. NECK: Supple, no adenopathy or thyromegaly. LUNGS: Clear. HEART: II/ systolic ejection murmur, distant heart sounds. ABDOMEN: Slightly obese, soft, nontender. No organomegaly. PELVIC EXAM, EXTERNAL GENITALIA: Normal postmenopausal vulva. Cervix appears normal. There is a three out of four cystocele. Uterus prolapse approximately 3 to 4 cm beyond the introitus with strain. No rectocele. Minimal enterocele. With the uterus replaced, there is no urine leak with cough. HOSPITAL COURSE: The patient was admitted on October 31, 1995 and underwent total vaginal hysterectomy, sacrospinous fixation and anterior colporrhaphy. The procedure went smoothly, without any complications. In the immediate postoperative period she was stable. However, on the night after surgery, she developed acute hypotension and worsening abdominal pain which was concerning for ongoing bleeding. A hematocrit was obtained which was 24.3. The patient was taken emergently back to the Operating Room, where she underwent exploratory laparotomy and evacuation of a hemoperitoneum, approximately 1.5 liters. No obvious bleeding site was identified, although there was a hematoma along the left broad ligament. At the time of her exploratory laparotomy, she had a bilateral salpingo-oophorectomy performed. Small atrophic ovaries were removed. The remainder of her hospital course was unremarkable. She received a total of seven units packed red blood cells and one unit of fresh frozen plasma perioperatively following her second surgery. Her Whitaker catheter was removed on the second postoperative day and she was able to void spontaneously without any difficulty. Her postoperative ileus resolved spontaneously, and by the fourth postoperative day, she was tolerating a regular diet. Her hematocrit stabilized to a final value of 35.4. She remained afebrile throughout her hospital course. She was discharged on November 06, 1995 in stable condition. DISPOSITION: Home. DISCHARGE MEDICATIONS: Tylox 1 to 2 p.o. q. 4 to 6 hours p.r.n. pain. She was given 40. Premarin 0.625 mg p.o. q. day. Colace 100 mg p.o. b.i.d. p.r.n. constipation. Ferrous sulfate 325 mg p.o. b.i.d. CONDITION ON DISCHARGE: Stable. DISCHARGE INSTRUCTION(S): Her follow-up care was to be with Dr. Robert approximately one week after discharge. She was instructed to call or return with fevers, chills, nausea, vomiting, worsening abdominal pain or leg pain. Gabriela Juarez M.D. Resident, Obstetrics and Gynecology Hieu Robert M.D. Professor and Street Sprinkler, Obstetrics and Gynecology MILTON /armando P cc: YIN VEGA MD [address] [place] [address] [address] [place] [address] MIKEY VAZQUEZ MD [address] [place] [address] documented in this encounter Plan of Treatment Not on filedocumented as of this encounter Visit Diagnoses Not on filedocumented in this encounter"
--- OUTSIDE RECORDS SUMMARY | ~2019-09-10 | XMS | Clinical Summary ---
Demographics + + + | Address | [address] | | | [place] [address] | + + + | Home Phone [...] | Organization | [facility] | | | and [...] Team Providers + +------+ + | Care Supervisor Endless Track Vehicle Name | Role | Phone | + [...] | | | | e | | ([id number] | | | | | | | [...] +--------+ +---------+--------+ | MEDICARE | MEDICA | [id number] | 01/06/19 | [phone] | | Medica | | | RE | | 95-Pre | 5 | | re | | | PART A | | sent | | | | | | AND B | | | | | | + +--------+ +--------+ +---------+--------+ | AARP | AARP | [id number] | 10/08/19 | [phone] | | Indemn [...] | | al/Fam | | 1930 | [phone] | [place] [address] | | | leigh | | | 7 (Home) | | + +--------+ +--------+ + + Advance Directives + + + + + | Type | Date Recorded | Patient | Explanation | | | | Electric Dolly Operator | | + + + + + | Power of | | | | | Concrete Journeyman | | | | + + + + + | Advance | 10/20/2014 1:04 | | | | Directive | PM | | | + + + + +
--- OUTSIDE RECORDS SUMMARY | ~2019-09-10 | XMS | Encounter Summary ---
Demographics + + + | Address | [address] | | | [place] [address] | + + + | Home Phone | | + + + | Preferred Language | Unknown | + + + | Marital Status | | + + + | Anabaptist Affiliation | MET | + + + | Race | White | + + + | Ethnic Group | Not or | + + + Author + + + | Author | [facility] | + + + | Organization | [facility] | + + + | Address | Unknown | + + + | Phone | Unavailable | + + + Support + + + + + | Name | Relationship | Address | Phone | + + + + + | Regulo Hong | ECON | [address] | | | | | [place], [place] | | | | | [address] | | + + + + + Care Team Providers + +------+ + | Care Adjuster And Inspector Name | Role | Phone | + +------+ + PCP | Unavailable | + +------+ + Encounter Details +--------+ + + + + | Date | Type | Department | Care Team | Description | +--------+ + + + + | 10/30/ | Results | Registration [id number] | | | | 1995 | Only | [address] | | | | | | [place] Mailcode: [id number] | | | | | | [place], [place] | | | | | | [address] | | | | | | [phone] | | | +--------+ + + + [...] | + +--------+ + + + | MICROBIOLOGY TESTS 1 | Routin | 11/30/1995 | | Results for this | | | e | 2:30 PM | | procedure are in the | | | | PST | | results section. | + +--------+ + + + | MICROBIOLOGY TESTS 1 | Routin | 11/30/1995 | | Results for this | | | e | 2:30 PM | | procedure are in the | | | | PST | | results section. | + +--------+ + + + | CBC TESTS 2 | Routin | 11/13/1995 | | Results for this | | | e | 12:45 PM | | procedure are in the | | | | PST | | results section. | + +--------+ + + + | CHEMISTRY TESTS 4 | Routin | 11/03/1995 | | Results for this | | | e | 6:23 AM | | procedure are in the | | | | PST | | results section. | + +--------+ + + + | CHEMISTRY TESTS 2 | Routin | 11/03/1995 | | Results for this | | | e | 6:23 AM | | procedure are in the | | | | PST | | results section. | + +--------+ + + + | CHEMISTRY TESTS 4 | Routin | 11/02/1995 | | Results for this | | | e | 8:00 PM | | procedure are in the | | | | PST | | results section. | + +--------+ + + + | CBC TESTS 2 | Routin | 11/02/1995 | | Results for this | | | e | 8:00 PM | | procedure are in the | | | | PST | | results section. | + +--------+ + + + | COAGULATION TESTS 2 | Routin | 11/02/1995 | | Results for this | | | e | 8:00 PM | | procedure are in the | | | | PST | | results section. | + +--------+ + + + | TRANSFUSION MEDICINE | Routin | 11/02/1995 | | Results for this | | TESTS | e | 4:55 PM | | procedure are in the | | | | PST | | results section. | + +--------+ + + + | CBC TESTS 2 | Routin | 11/02/1995 | | Results for this | | | e | 11:50 AM | | procedure are in the | | | | PST | | results section. | + +--------+ + + + | CHEMISTRY TESTS 4 | Routin | 11/02/1995 | | Results for this | | | e | 7:30 AM | | procedure are in the | | | | PST | | results section. | + +--------+ + + + | CBC TESTS 2 | Routin | 11/02/1995 | | Results for this | | | e | 7:30 AM | | procedure are in the | | | | PST | | results section. | + +--------+ + + + | CHEMISTRY TESTS 2 | Routin | 11/02/1995 | | Results for this | | | e | 7:30 AM | | procedure are in the | | | | PST | | results section. | + +--------+ + + + | CBC TESTS 2 | Routin | 11/01/1995 | | Results for this | | | e | 1:50 PM | | procedure are in the | | | | PST | | results section. | + +--------+ + + + | CHEMISTRY TESTS 4 | Routin | 11/01/1995 | | Results for this | | | e | 5:30 AM | | procedure are in the | | | | PST | | results section. | + +--------+ + + + | CBC TESTS 2 | Routin | 11/01/1995 | | Results for this | | | e | 5:30 AM | | procedure are in the | | | | PST | | results section. | + +--------+ + + + | CHEMISTRY TESTS 2 | Routin | 11/01/1995 | | Results for this | | | e | 5:30 AM | | procedure are in the | | | | PST | | results section. | + +--------+ + + + | BLOOD GASES, | Routin | 11/01/1995 | | Results for this | | ARTERIAL - LAB | e | 5:30 AM | | procedure are in the | | | | PST | | results section. | + +--------+ + + + | TRANSFUSION MEDICINE | Routin | 10/31/1995 | | Results for this | | TESTS | e | 11:59 PM | | procedure are in the | | | | PST | | results section. | + +--------+ + + + | CHEMISTRY TESTS 4 | Routin | 10/31/1995 | | Results for this | | | e | 10:00 PM | | procedure are in the | | | | PST | | results section. | + +--------+ + + + | CBC TESTS 2 | Routin | 10/31/1995 | | Results for this | | | e | 10:00 PM | | procedure are in the | | | | PST | | results section. | + +--------+ + + + | CHEMISTRY TESTS 4 | Routin | 10/30/1995 | | Results for this | | | e | 2:15 PM | | procedure are in the | | | | PST | | results section. | + +--------+ + + + | CBC TESTS 2 | Routin | 10/30/1995 | | Results for this | | | e | 2:15 PM | | procedure are in the | | | | PST | | results section. | + +--------+ + + + documented in this encounter Results MICROBIOLOGY TESTS 1 (11/30/1995 2:30 PM PST) + + + + + + | Component | Value | Ref Range | Performed | Pathologist | | | | | At | Signature | + + + + + + | CULTURE | Diagnosis | | | | | RESULT | RULE OUT INFECTIONTest | | | | | | Ordered VIRAL | | | | | | CULTURE, HERPES | | | | | | ONLYOrdering Loc | | | | | | 163Spec Set | | | | | | Up Date 11/30Spec Set | | | | | | Up Time 18:17Specimen | | | | | | Type SWAB | | | | | | ABDOMENReport Status | | | | | | FINALPrelim Result | | | | | | NO VIRUS | | | | | | ISOLATED TO DATECulture | | | | | | Result NO VIRUS | | | | | | ISOLATEDDate Of Final Re | | | | | | [id number] | | | | + + + + + + + + | Specimen | + + | | + + + + + + + | Performing | Address | City/State/Zipcode | Phone Number | | Organization | | | | + + + + + | [facility] | [address] | [place] [address] | | | PATHOLOGY | [address] | | | + + + + + MICROBIOLOGY TESTS 1 (11/30/1995 2:30 PM PST) + + + + + + | Component | Value | Ref Range | Performed | Pathologist | | | | | At | Signature | + + + + + + | CULTURE | Diagnosis | | | | | RESULT | RULE OUT URINARY TRACT | | | | | | INFECTIONTest Ordered | | | | | | URINE CULTURE, | | | | | | ROUTINEOrdering Loc | | | | | | 163Spec | | | | | | Set Up Date 11/30Spec | | | | | | Set Up Time | | | | | | 18:17Source Body Site | | | | | | CLEAN CATCHColony Count | | | | | | 25,000 - | | | | | | 49,000 CFU/MLReport | | | | | | Status | | | | | | FINALPrelim Result | | | | | | GRAM POSITIVE | | | | | | GROWTHCulture Result | | | | | | MIXED GRAM POSITIVE | | | | | | GROWTHDate Of Final Re | | | | | | [id number] | | | | + + + + + + + + | Specimen | + + | | + + + + + + + | Performing | Address | City/State/Zipcode | Phone Number | | Organization | | | | + + + + + | [facility] | [address] | [place] [address] | | | PATHOLOGY | [address] | | | + + + + + CBC TESTS 2 (11/13/1995 12:45 PM PST) + + + + + + | Component | Value | Ref Range | Performed | Pathologist | | | | | At | Signature | + + + + + + | WHITE CELL | 10.5 (H) | K/CU MM | | | | COUNT | | | | | + + + + + + | RED CELL | 4.08 | M/CU MM | | | | COUNT | | | | | + + + + + + | HEMOGLOBIN | 12.9 | GM/DL | | | + + + + + + | HEMATOCRIT | 36.8 (L) | % | | | + + + + + + | MCV | 90.1 | [place] | | | + + + + + + | MCH | 31.5 | PG | | | + + + + + + | MCHC | 34.9 (H) | GM/DL | | | + + + + + + | RDW | 13.2 | % | | | + + + + + + | PLATELET | 577. (H) | K/CU MM | | | | COUNT | | | | | + + + + + + | MPV | 6.7 (L) | [place] | | | + + + + + + + + | Specimen | + + | | + + + + + + + | Performing | Address | City/State/Zipcode | Phone Number | | Organization | | | | + + + + + | [facility] | [address] | [place] [address] | | | PATHOLOGY | [address] | | | + + + + + CHEMISTRY TESTS 2 (11/03/1995 6:23 AM PST) + + + + + + | Component | Value | Ref Range | Performed | Pathologist | | | | | At | Signature | + + + + + + | CHOLESTEROL | 108. (L) | mg/dL | | | | (LAB) | | | | | + + + + + + + + | Specimen | + + | | + + + + + + + | Performing | Address | City/State/Zipcode | Phone Number | | Organization | | | | + + + + + | [facility] | [address] | [place] [address] | | | PATHOLOGY | [address] | | | + + + + + CHEMISTRY TESTS 4 (11/03/1995 6:23 AM PST) + + + + + + | Component | Value | Ref Range | Performed | Pathologist | | | | | At | Signature | + + + + + + | SODIUM, | 138. | mmol/l | | | | PLASMA | | | | | | (LAB) | | | | | + + + + + + | POTASSIUM, | 3.5 | mmol/l | | | | PLASMA | | | | | | (LAB) | | | | | + + + + + + | CHLORIDE, | 103. | mmol/l | | | | PLASMA | | | | | | (LAB) | | | | | + + + + + + | TOTAL CO2, | 31. (H) | mmol/l | | | | PLASMA | | | | | | (LAB) | | | | | + + + + + + | BUN, PLASMA | 7. | mg/dL | | | | (LAB) | | | | | + + + + + + | CREATININE | 0.8 | mg/dL | | | | PLASMA | | | | | | (LAB) | | | | | + + + + + + | GLUCOSE, | 108. | mg/dL | | | | PLASMA | | | | | | (LAB) | | | | | + + + + + + | CALCIUM, | 7.9 (L) | mg/dL | | | | PLASMA | | | | | | (LAB) | | | | | + + + + + + | MAGNESIUM,P | 1.6 (L) | mg/dL | | | | LASMA | | | | | + + + + + + | PHOSPHORUS, | 2.7 | mg/dL | | | | PLASMA | | | | | | (LAB) | | | | | + + + + + + | URIC ACID, | 4.9 | mg/dL | | | | PLASMA | | | | | | (LAB) | | | | | + + + + + + | AST(SGOT) | 15. | U/L | | | + + + + + + | ALT (SGPT) | 15. | U/L | | | + + + + + + | ALK PHOS | 50. | U/L | | | + + + + + + | LD TOTAL, | 171. | U/L | | | | PLASMA | | | | | + + + + + + | BILIRUBIN | 0.2 | mg/dL | | | | DIRECT | | | | | + + + + + + | BILIRUBIN | 0.9 | mg/dL | | | | TOTAL | | | | | + + + + + + | TOTAL | 4.3 (L) | GM/DL | | | | PROTEIN, | | | | | | PLASMA | | | | | | (LAB) | | | | | + + + + + + | ALBUMIN, | 2.4 (L) | GM/DL | | | | PLASMA | | | | | | (LAB) | | | | | + + + + + + + + | Specimen | + + | | + + + + + + + | Performing | Address | City/State/Zipcode | Phone Number | | Organization | | | | + + + + + | [facility] | [address] | [place] [address] | | | PATHOLOGY | [address] | | | + + + + + CHEMISTRY TESTS 4 (11/02/1995 8:00 PM PST) + + + + + + | Component | Value | Ref Range | Performed | Pathologist | | | | | At | Signature | + + + + + + | SODIUM, | 141. | mmol/l | | | | PLASMA | | | | | | (LAB) | | | | | + + + + + + | POTASSIUM, | 3.4 (L) | mmol/l | | | | PLASMA | | | | | | (LAB) | | | | | + + + + + + | CHLORIDE, | 98. | mmol/l | | | | PLASMA | | | | | | (LAB) | | | | | + + + + + + | TOTAL CO2, | 30. (H) | mmol/l | | | | PLASMA | | | | | | (LAB) | | | | | + + + + + + | BUN, PLASMA | 5. (L) | mg/dL | | | | (LAB) | | | | | + + + + + + | CREATININE | 0.7 | mg/dL | | | | PLASMA | | | | | | (LAB) | | | | | + + + + + + | GLUCOSE, | 118. (H) | mg/dL | | | | PLASMA | | | | | | (LAB) | | | | | + + + + + + + + | Specimen | + + | | + + + + + + + | Performing | Address | City/State/Zipcode | Phone Number | | Organization | | | | + + + + + | [facility] | [address] | [place] [address] | | | PATHOLOGY | [address] | | | + + + + + COAGULATION TESTS 2 (11/02/1995 8:00 PM PST) + + + + + + | Component | Value | Ref Range | Performed | Pathologist | | | | | At | Signature | + + + + + + | PROTHROMBIN | 12.3 | SECONDS | | | | TIME | | | | | + + + + + + | PROTIME | 1. | SECONDS | | | | RATIO | | | | | + + + + + + | PROTHROMBIN | 1.09 | INR | | | | INR | | | | | + + + + + + | APTT | 24.2 | SECONDS | | | + + + + + + + + | Specimen | + + | | + + + + + + + | Performing | Address | City/State/Zipcode | Phone Number | | Organization | | | | + + + + + | [facility] | [address] | [place] [address] | | | PATHOLOGY | [address] | | | + + + + + CBC TESTS 2 (11/02/1995 8:00 PM PST) + + + + + + | Component | Value | Ref Range | Performed | Pathologist | | | | | At | Signature | + + + + + + | WHITE CELL | 9.4 | K/CU MM | | | | COUNT | | | | | + + + + + + | RED CELL | 3.6 (L) | M/CU MM | | | | COUNT | | | | | + + + + + + | HEMOGLOBIN | 11.3 (L) | GM/DL | | | + + + + + + | HEMATOCRIT | 31.9 (L) | % | | | + + + + + + | MCV | 88.8 | [place] | | | + + + + + + | MCH | 31.3 | PG | | | + + + + + + | MCHC | 35.3 (H) | GM/DL | | | + + + + + + | RDW | 13.3 | % | | | + + + + + + | PLATELET | 146. (L) | K/CU MM | | | | COUNT | | | | | + + + + + + | MPV | 7.5 | [place] | | | + + + + + + + + | Specimen | + + | | + + + + + + + | Performing | Address | City/State/Zipcode | Phone Number | | Organization | | | | + + + + + | [facility] | [address] | [place] [address] | | | PATHOLOGY | [address] | | | + + + + + TRANSFUSION MEDICINE TESTS (11/02/1995 4:55 PM PST) + + + + + + | Component | Value | Ref Range | Performed | Pathologist | | | | | At | Signature | + + + + + + | ABO GROUP | A | | | | + + + + + + | RH TYPE | POS | | | | + + + + + + | ANTIBODY | NEGATIVE | | | | | SCREEN | | | | | + + + + + + + + | Specimen | + + | | + + + + + + + | Performing | Address | City/State/Zipcode | Phone Number | | Organization | | | | + + + + + | [facility] | [address] | [place] [address] | | | PATHOLOGY | [address] | | | + + + + + CBC TESTS 2 (11/02/1995 11:50 AM PST) + + + + + + | Component | Value | Ref Range | Performed | Pathologist | | | | | At | Signature | + + + + + + | WHITE CELL | 9.9 | K/CU MM | | | | COUNT | | | | | + + + + + + | RED CELL | 3.73 (L) | M/CU MM | | | | COUNT | | | | | + + + + + + | HEMOGLOBIN | 11.8 (L) | GM/DL | | | + + + + + + | HEMATOCRIT | 33.2 (L) | % | | | + + + + + + | MCV | 88.8 | [place] | | | + + + + + + | MCH | 31.7 | PG | | | + + + + + + | MCHC | 35.6 (H) | GM/DL | | | + + + + + + | RDW | 13.3 | % | | | + + + + + + | PLATELET | 137. (L) | K/CU MM | | | | COUNT | | | | | + + + + + + | MPV | 7.7 | [place] | | | + + + + + + + + | Specimen | + + | | + + + + + + + | Performing | Address | City/State/Zipcode | Phone Number | | Organization | | | | + + + + + | [facility] | [address] | [place] [address] | | | PATHOLOGY | [address] | | | + + + + + CHEMISTRY TESTS 2 (11/02/1995 7:30 AM PST) + + + + + + | Component | Value | Ref Range | Performed | Pathologist | | | | | At | Signature | + + + + + + | CHOLESTEROL | 101. (L) | mg/dL | | | | (LAB) | | | | | + + + + + + + + | Specimen | + + | | + + + + + + + | Performing | Address | City/State/Zipcode | Phone Number | | Organization | | | | + + + + + | [facility] | [address] | [place] [address] | | | PATHOLOGY | [address] | | | + + + + + CHEMISTRY TESTS 4 (11/02/1995 7:30 AM PST) + + + + + + | Component | Value | Ref Range | Performed | Pathologist | | | | | At | Signature | + + + + + + | SODIUM, | 137. | mmol/l | | | | PLASMA | | | | | | (LAB) | | | | | + + + + + + | POTASSIUM, | 3. (L) | mmol/l | | | | PLASMA | | | | | | (LAB) | | | | | + + + + + + | CHLORIDE, | 102. | mmol/l | | | | PLASMA | | | | | | (LAB) | | | | | + + + + + + | TOTAL CO2, | 34. (H) | mmol/l | | | | PLASMA | | | | | | (LAB) | | | | | + + + + + + | BUN, PLASMA | 8. | mg/dL | | | | (LAB) | | | | | + + + + + + | CREATININE | 0.7 | mg/dL | | | | PLASMA | | | | | | (LAB) | | | | | + + + + + + | GLUCOSE, | 101. | mg/dL | | | | PLASMA | | | | | | (LAB) | | | | | + + + + + + | CALCIUM, | 7.7 (L) | mg/dL | | | | PLASMA | | | | | | (LAB) | | | | | + + + + + + | MAGNESIUM,P | 1.5 (L) | mg/dL | | | | LASMA | | | | | + + + + + + | PHOSPHORUS, | 1.3 (L) | mg/dL | | | | PLASMA | | | | | | (LAB) | | | | | + + + + + + | URIC ACID, | 4.7 | mg/dL | | | | PLASMA | | | | | | (LAB) | | | | | + + + + + + | AST(SGOT) | 18. | U/L | | | + + + + + + | ALT (SGPT) | 19. | U/L | | | + + + + + + | ALK PHOS | 43. | U/L | | | + + + + + + | LD TOTAL, | 186. | U/L | | | | PLASMA | | | | | + + + + + + | BILIRUBIN | 0.2 | mg/dL | | | | DIRECT | | | | | + + + + + + | BILIRUBIN | 0.9 | mg/dL | | | | TOTAL | | | | | + + + + + + | TOTAL | 4.4 (L) | GM/DL | | | | PROTEIN, | | | | | | PLASMA | | | | | | (LAB) | | | | | + + + + + + | ALBUMIN, | 2.5 (L) | GM/DL | | | | PLASMA | | | | | | (LAB) | | | | | + + + + + + + + | Specimen | + + | | + + + + + + + | Performing | Address | City/State/Zipcode | Phone Number | | Organization | | | | + + + + + | [facility] | [address] | [place] [address] | | | PATHOLOGY | [address] | | | + + + + + CBC TESTS 2 (11/02/1995 7:30 AM PST) + + + + + + | Component | Value | Ref Range | Performed | Pathologist | | | | | At | Signature | + + + + + + | WHITE CELL | 7.6 | K/CU MM | | | | COUNT | | | | | + + + + + + | RED CELL | 2.75 (L) | M/CU MM | | | | COUNT | | | | | + + + + + + | HEMOGLOBIN | 8.8 (L) | GM/DL | | | + + + + + + | HEMATOCRIT | 25.4 (L) | % | | | + + + + + + | MCV | 92.1 | [place] | | | + + + + + + | MCH | 32. | PG | | | + + + + + + | MCHC | 34.7 (H) | GM/DL | | | + + + + + + | RDW | 13.5 | % | | | + + + + + + | PLATELET | 101. (L) | K/CU MM | | | | COUNT | | | | | + + + + + + | MPV | 7.8 | [place] | | | + + + + + + + + | Specimen | + + | | + + + + + + + | Performing | Address | City/State/Zipcode | Phone Number | | Organization | | | | + + + + + | [facility] | [address] | [place] [address] | | | PATHOLOGY | [address] | | | + + + + + CBC TESTS 2 (11/01/1995 1:50 PM PST) + + + + + + | Component | Value | Ref Range | Performed | Pathologist | | | | | At | Signature | + + + + + + | WHITE CELL | 9.6 | K/CU MM | | | | COUNT | | | | | + + + + + + | RED CELL | 4. | M/CU MM | | | | COUNT | | | | | + + + + + + | HEMOGLOBIN | 12.6 | GM/DL | | | + + + + + + | HEMATOCRIT | 35.4 (L) | % | | | + + + + + + | MCV | 88.6 | [place] | | | + + + + + + | MCH | 31.6 | PG | | | + + + + + + | MCHC | 35.7 (H) | GM/DL | | | + + + + + + | RDW | 13. | % | | | + + + + + + | PLATELET | 141. (L) | K/CU MM | | | | COUNT | | | | | + + + + + + | MPV | 7.6 | [place] | | | + + + + + + + + | Specimen | + + | | + + + + + + + | Performing | Address | City/State/Zipcode | Phone Number | | Organization | | | | + + + + + | [facility] | [address] | [place] [address] | | | PATHOLOGY | [address] | | | + + + + + CBC TESTS 2 (11/01/1995 5:30 AM PST) + + + + + + | Component | Value | Ref Range | Performed | Pathologist | | | | | At | Signature | + + + + + + | WHITE CELL | 11.4 (H) | K/CU MM | | | | COUNT | | | | | + + + + + + | RED CELL | 4.63 | M/CU MM | | | | COUNT | | | | | + + + + + + | HEMOGLOBIN | 14.3 | GM/DL | | | + + + + + + | HEMATOCRIT | 41.8 | % | | | + + + + + + | MCV | 90.2 | [place] | | | + + + + + + | MCH | 30.8 | PG | | | + + + + + + | MCHC | 34.2 (H) | GM/DL | | | + + + + + + | RDW | 12.5 | % | | | + + + + + + | PLATELET | 151. | K/CU MM | | | | COUNT | | | | | + + + + + + | MPV | 7.4 | [place] | | | + + + + + + | NEUTROPHIL | 87. (H) | % | | | | % | | | | | + + + + + + | LYMPHOCYTE | 7. (L) | % | | | | % | | | | | + + + + + + | MONOCYTE % | 6. | % | | | + + + + + + | EOS % | 0. | % | | | + + + + + + | BASO % | 0. | % | | | + + + + + + | NEUTROPHIL | 9.9 (H) | K/CU MM | | | | # | | | | | + + + + + + | LYMPHOCYTE | 0.8 (L) | K/CU MM | | | | # | | | | | + + + + + + | MONOCYTE # | 0.7 (H) | K/CU MM | | | + + + + + + | EOS # | 0. | K/CU MM | | | + + + + + + | BASO # | 0. | K/CU MM | | | + + + + + + + + | Specimen | + + | | + + + + + + + | Performing | Address | City/State/Zipcode | Phone Number | | Organization | | | | + + + + + | [facility] | [address] | [place] [address] | | | PATHOLOGY | [address] | | | + + + + + BLOOD GASES, ARTERIAL - LAB (11/01/1995 5:30 AM PST) + + + + + + | Component | Value | Ref Range | Performed | Pathologist | | | | | At | Signature | + + + + + + | PAT TEMP | 37.3 | DEGREES C. | | | | ARTERIAL | | | | | + + + + + + | FIO2 | 6. (L) | DEGREES C. | | | | ARTERIAL | | | | | + + + + + + | PH ARTERIAL | 7.35 (L) | DEGREES C. | | | + + + + + + | PCO2 | 45. (H) | MM HG | | | | ARTERIAL | | | | | + + + + + + | PO2 | 103. | MM HG | | | | ARTERIAL | | | | | + + + + + + | BASE EXCESS | -0.6 | MM HG | | | | ARTERIAL | | | | | + + + + + + | HCO3 | 25. | mmol/l | | | | ARTERIAL | | | | | + + + + + + | TOTAL CO2 | 26. | mmol/l | | | | ARTERIAL | | | | | + + + + + + | CALC %O2 | 97.4 | % O2 Sat | | | | SAT ARTER | | | | | + + + + + + + + | Specimen | + + | | + + + + + + + | Performing | Address | City/State/Zipcode | Phone Number | | Organization | | | | + + + + + | [facility] | [phone] | [place] [address] | | | PATHOLOGY | [address] | | | + + + + + CHEMISTRY TESTS 2 (11/01/1995 5:30 AM PST) + + + + + + | Component | Value | Ref Range | Performed | Pathologist | | | | | At | Signature | + + + + + + | CHOLESTEROL | 133. (L) | mg/dL | | | | (LAB) | | | | | + + + + + + + + | Specimen | + + | | + + + + + + + | Performing | Address | City/State/Zipcode | Phone Number | | Organization | | | | + + + + + | [facility] | [phone] | [place] [address] | | | PATHOLOGY | [address] | | | + + + + + CHEMISTRY TESTS 4 (11/01/1995 5:30 AM PST) + + + + + + | Component | Value | Ref Range | Performed | Pathologist | | | | | At | Signature | + + + + + + | SODIUM, | 143. | mmol/l | | | | PLASMA | | | | | | (LAB) | | | | | + + + + + + | POTASSIUM, | 3.8 | mmol/l | | | | PLASMA | | | | | | (LAB) | | | | | + + + + + + | CHLORIDE, | 111. (H) | mmol/l | | | | PLASMA | | | | | | (LAB) | | | | | + + + + + + | TOTAL CO2, | 23. | mmol/l | | | | PLASMA | | | | | | (LAB) | | | | | + + + + + + | BUN, PLASMA | 16. | mg/dL | | | | (LAB) | | | | | + + + + + + | CREATININE | 0.9 | mg/dL | | | | PLASMA | | | | | | (LAB) | | | | | + + + + + + | GLUCOSE, | 157. (H) | mg/dL | | | | PLASMA | | | | | | (LAB) | | | | | + + + + + + | CALCIUM, | 7.8 (L) | mg/dL | | | | PLASMA | | | | | | (LAB) | | | | | + + + + + + | MAGNESIUM,P | 1.3 (L) | mg/dL | | | | LASMA | | | | | + + + + + + | PHOSPHORUS, | 3.1 | mg/dL | | | | PLASMA | | | | | | (LAB) | | | | | + + + + + + | URIC ACID, | 5.5 | mg/dL | | | | PLASMA | | | | | | (LAB) | | | | | + + + + + + | AST(SGOT) | 30. | U/L | | | + + + + + + | ALT (SGPT) | 23. | U/L | | | + + + + + + | ALK PHOS | 46. | U/L | | | + + + + + + | LD TOTAL, | 476. (H) | U/L | | | | PLASMA | | | | | + + + + + + | BILIRUBIN | 0.3 | mg/dL | | | | DIRECT | | | | | + + + + + + | BILIRUBIN | 1.5 (H) | mg/dL | | | | TOTAL | | | | | + + + + + + | TOTAL | 5.2 (L) | GM/DL | | | | PROTEIN, | | | | | | PLASMA | | | | | | (LAB) | | | | | + + + + + + | ALBUMIN, | 3. (L) | GM/DL | | | | PLASMA | | | | | | (LAB) | | | | | + + + + + + + + | Specimen | + + | | + + + + + + + | Performing | Address | City/State/Zipcode | Phone Number | | Organization | | | | + + + + + | [facility] | [phone] | [place] [address] | | | PATHOLOGY | [address] | | | + + + + + TRANSFUSION MEDICINE TESTS (10/31/1995 11:59 PM PST) + + + + + + | Component | Value | Ref Range | Performed | Pathologist | | | | | At | Signature | + + + + + + | ABO GROUP | A | | | | + + + + + + | RH TYPE | POS | | | | + + + + + + | ANTIBODY | NEGATIVE | | | | | SCREEN | | | | | + + + + + + + + | Specimen | + + | | + + + + + + + | Performing | Address | City/State/Zipcode | Phone Number | | Organization | | | | + + + + + | [facility] | [phone] | [place] [address] | | | PATHOLOGY | [address] | | | + + + + + CHEMISTRY TESTS 4 (10/31/1995 10:00 PM PST) + + + + + + | Component | Value | Ref Range | Performed | Pathologist | | | | | At | Signature | + + + + + + | SODIUM, | 137. | mmol/l | | | | PLASMA | | | | | | (LAB) | | | | | + + + + + + | POTASSIUM, | 3.8 | mmol/l | | | | PLASMA | | | | | | (LAB) | | | | | + + + + + + + + | Specimen | + + | | + + + + + + + | Performing | Address | City/State/Zipcode | Phone Number | | Organization | | | | + + + + + | [facility] | [phone] | [place] [address] | | | PATHOLOGY | [address] | | | + + + + + CBC TESTS 2 (10/31/1995 10:00 PM PST) + + + + + + | Component | Value | Ref Range | Performed | Pathologist | | | | | At | Signature | + + + + + + | WHITE CELL | 14.6 (H) | K/CU MM | | | | COUNT | | | | | + + + + + + | RED CELL | 2.75 (L) | M/CU MM | | | | COUNT | | | | | + + + + + + | HEMOGLOBIN | 8.4 (L) | GM/DL | | | + + + + + + | HEMATOCRIT | 24.3 (L) | % | | | + + + + + + | MCV | 88.1 | FL | | | + + + + + + | MCH | 30.5 | PG | | | + + + + + + | MCHC | 34.5 (H) | GM/DL | | | + + + + + + | RDW | 12.2 | % | | | + + + + + + | PLATELET | 267. | K/CU MM | | | | COUNT | | | | | + + + + + + | MPV | 7.7 | [place] | | | + + + + + + + + | Specimen | + + | | + + + + + + + | Performing | Address | City/State/Zipcode | Phone Number | | Organization | | | | + + + + + | [facility] | [address] | [place] [address] | | | PATHOLOGY | [address] | | | + + + + + CHEMISTRY TESTS 4 (10/30/1995 2:15 PM PST) + + + + + + | Component | Value | Ref Range | Performed | Pathologist | | | | | At | Signature | + + + + + + | SODIUM, | 140. | mmol/l | | | | PLASMA | | | | | | (LAB) | | | | | + + + + + + | POTASSIUM, | 4. | mmol/l | | | | PLASMA | | | | | | (LAB) | | | | | + + + + + + | CHLORIDE, | 102. | mmol/l | | | | PLASMA | | | | | | (LAB) | | | | | + + + + + + | TOTAL CO2, | 31. (H) | mmol/l | | | | PLASMA | | | | | | (LAB) | | | | | + + + + + + | BUN, PLASMA | 22. | mg/dL | | | | (LAB) | | | | | + + + + + + | CREATININE | 0.9 | mg/dL | | | | PLASMA | | | | | | (LAB) | | | | | + + + + + + | GLUCOSE, | 95. | mg/dL | | | | PLASMA | | | | | | (LAB) | | | | | + + + + + + + + | Specimen | + + | | + + + + + + + | Performing | Address | City/State/Zipcode | Phone Number | | Organization | | | | + + + + + | [facility] | [address] | [place] [address] | | | PATHOLOGY | [address] | | | + + + + + CBC TESTS 2 (10/30/1995 2:15 PM PST) + + + + + + | Component | Value | Ref Range | Performed | Pathologist | | | | | At | Signature | + + + + + + | WHITE CELL | 5.7 | K/CU MM | | | | COUNT | | | | | + + + + + + | RED CELL | 4.54 | M/CU MM | | | | COUNT | | | | | + + + + + + | HEMOGLOBIN | 13.8 | GM/DL | | | + + + + + + | HEMATOCRIT | 40.6 | % | | | + + + + + + | MCV | 89.5 | [place] | | | + + + + + + | MCH | 30.4 | PG | | | + + + + + + | MCHC | 34. (H) | GM/DL | | | + + + + + + | RDW | 12.3 | % | | | + + + + + + | PLATELET | 306. | K/CU MM | | | | COUNT | | | | | + + + + + + | MPV | 8. | [place] | | | + + + + + + + + | Specimen | + + | | + + + + + + + | Performing | Address | City/State/Zipcode | Phone Number | | Organization | | | | + + + + + | [facility] | [address] | [place] [address] | | | PATHOLOGY | [address] | | | + + + + + documented in this encounter Visit Diagnoses Not on filedocumented in this encounter"
--- OUTSIDE RECORDS SUMMARY | ~2019-09-10 | XMS | Encounter Summary ---
Demographics + + + | Address | [address] | | | [place] [address] | + + + | Home Phone | | + + + | Preferred Language | Unknown | + + + | Marital Status | | + + + | Latter-Day Affiliation | Unknown | + + + | Race | Unknown | + + + | Ethnic Group | Unknown | + + + Author + + + | Author | [facility] | | | and [place] | + + + | Organization | [facility] | | | and [place] [...] Team Providers + +------+ + | Care Youth Care Specialist Name | Role | Phone | + [...] Medication Refill | | 2018 | | [facility] | E, DO [address] | | | | | [facility] [address] | [place], [place] | | | | | [address] [place], | [address] | | | | | [place] [address] | [phone] | | | | | [phone] | | | +--------+--------+ + + + [...]
--- OUTSIDE RECORDS SUMMARY | ~2019-09-10 | XMS | Encounter Summary ---
Demographics + + + | Address | [address] | | | [place] [address] | + + + | Home Phone | | + + + | Preferred Language | Unknown | + + + | Marital Status | | + + + | Jew Affiliation | MET | + + + | Race | White | + + + | Ethnic Group | Not or | + + + Author + + + | Author | [facility] | + + + | Organization | [facility] | + + + | Address | Unknown | + + + | Phone | Unavailable | + + + Support + + + + + | Name | Relationship | Address | Phone | + + + + + | Regulo Hong | ECON | [address] | | | | | [place], [place] | | | | | [address] | | + + + + + Care Team Providers + +------+ + | Care Director Of Counterintelligence Name | Role | Phone | + +------+ + PCP | Unavailable | + +------+ + Encounter Details +--------+ + + + + | Date | Type | Department | Care Team | Description | +--------+ + + + + | 10/31/ | Procedure - | Digestive [facility] | Record, Operation | Operative Report | | 1995 | | [place] [facility] [address] | | | | | Transcribed | [address] | | | | | | Mailcode: [facility] | | | | [facility] | | | | | | [facility], [address] | | | | | | [place], [place] | | | | | | [address] | | | | | | [phone] | | | +--------+ + + + [...] + + | OPERATION RECORD | | 10/31/1995 | | Results for this | | | | 12:00 AM | | procedure are in the | | | | PST | | results section. | + +--------+ + + + documented in this encounter Results OPERATION RECORD (10/31/1995 12:00 AM PST) + + | Procedure Note | + + | 10/31/1995 12:00 AM [facility] | | [facility] | | [address], [place] [address] | | [facility] | | | | OPERATION RECORD | | | | Med Rec No.: [id number] Date: 10/31/95 | | | | Name: Una Hong | | | | | | ATTENDING SURGEON: Hieu Robert M.D. | | Professor and Staff Air Defense Officer, | | Obstetrics and Gynecology | | | | MANAGED CARE PROVIDER(S): Gabriela Juarez M.D. | | Resident, Obstetrics and Gynecology | | | | POSTOPERATIVE DIAGNOSIS(ES): 1. Complete procidentia. | | 2. Cystocele. | | | | OPERATION(S) PERFORMED: 1. Total vaginal hysterectomy. | | 2. Anterior colporrhaphy. | | 3. Transvaginal sacrospinous ligament | | fixation. | | | | ANESTHESIA: General endotracheal anesthesia. | | | | ESTIMATED BLOOD LOSS: 450 cc. | | | | SPECIMEN(S) REMOVED: Uterus with cervix and vaginal mucosa to | | Pathology. | | | | FLUIDS: 2100 cc Crystalloid. 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 She | | presented with complete procidentia. She had no associated with | | incontinence of stool or urine. She presented for definite surgical | | correction of her vaginal vault relaxation. | | | | FINDINGS: There was complete eversion of the vaginal | | vault and prolapse of the cervix and uterus. | | There was a large | | cystocele and an unsupported vaginal apex. At the termination of the case, | | there was excellent elevation of the vaginal apex. There was no obvious | | rectocele or enterocele sac present. The ovaries were not well seen but | | were palpably quite atrophic and small. | | | | PROCEDURE: The patient was taken to the Operating Room | | where she was placed in the dorsolithotomy | | position with her legs in | | sling stirrups. She was positioned while awake to help position her | | comfortably given her history of left hip replacement. General anesthesia | | was administered without complication. She was prepped and draped in the | | usual sterile fashion. Her bladder was emptied prior to beginning the case. | | | | The hysterectomy was performed first. The cervix was grasped with a | | single-tooth tenaculum. The mucosa was injected at the cervicovaginal | | junction using 1% lidocaine with dilute epinephrine. The vaginal mucosa was | | incised using the scalpel at the cervicovaginal junction circumferentially | | around the cervix. The anterior colpotomy was then attempted but was not | | initially successful. Therefore, attention was turned to a posterior | | colpotomy. Using sharp dissection, the posterior peritoneum and the | | posterior cul-de-sac were identified and entered sharply without trauma to | | bowel. The uterosacral ligaments were clamped bilaterally, transected, and | | ligated using 0 Vicryl suture ligature. | | | | The anterior colpotomy was performed, carefully identifying the anterior | | peritoneum. The vesicouterine pouch was entered atraumatically. The | | cardinal ligaments were sequentially clamped, cut, and ligated using 0 | | Vicryl suture ligature. Ends of suture for both the uterosacral ligament | | and cardinal ligaments were held for plication at the termination of the | | case. The uterine vessels were clamped bilaterally, transected, and doubly | | ligated using 0 Vicryl suture ligature. The utero-ovarian ligaments were | | identified, clamped, and transected. These were ligated bilaterally using a | | free tie of 0 Vicryl suture ligature. The uterus was removed. Pedicles | | were inspected and all were found to be hemostatic. The cuff was packed | | temporarily using a pediatric lap sponge. | | | | Attention was turned to the anterior colporrhaphy. The vaginal mucosa was | | grasped at the apex using Allis clamps. Using 1% lidocaine with dilute | | epinephrine, the vaginal mucosa was injected in a linear fashion from just | | below the urethra to the vaginal apex in the midline. The vaginal mucosa | | was undermined using Metzenbaum scissors and incised in the midline to | | approximately 2 cm below the urethral meatus. The vaginal mucosa was | | dissected laterally away from the underlying bladder, with care being taken | | to avoid injury to bladder during the dissection. When the redundant | | vaginal mucosa had been completely dissected away from the bladder, the | | vagina was plicated in the midline using 0 Vicryl suture ligature in | | interrupted stitches to completely obliterate the cystocele. Upon placing | | the initial stitch on the right side of the urethra, some bleeding was | | encountered. Hemostasis was obtained using [id number] stitches. When | | the cystocele had been completely obliterated by medial plication, excess | | vaginal mucosa was excised. The vaginal mucosa was closed using mattress | | sutures with 0 Vicryl suture ligature. | | | | Attention was now turned to the sacrospinous ligament fixation. An incision | | was made just inside the hymenal ring in the posterior vaginal mucosa. The | | | | vaginal mucosa was undermined for a length of approximately 3 cm for entry | | into the right ischiorectal fossa. Using sharp and blunt dissection, the | | sacrospinous ligament was identified and dissected for adequate | | visualization. Using retractors for visualization and a Moreau ligature | | carrier, two stitches of Laclede-Nicholas suture were placed through the coccygeus | | muscle and uterosacral ligament, approximately 1-1/2 to 2 fingerbreadths | | medial to the ischial spine. These sutures were plicated to the apex of the | | vagina. During plication of the second stitch, it was noted to have pulled | | through the coccygeus muscle and was removed. The remaining stitch was | | plicated in a shayan-like stitch and tied down, thus elevating the apex of | | the vagina in the usual fashion. The vaginal mucosa was closed using 0 | | Vicryl suture in interrupted mattress stitches. The vagina was packed with | | vaginal packing soaked in Sultrin Cream. | | | | After the termination of the surgical procedure and just prior to attempts | | at extubation, the patient was noted to have a bradycardic episode to | | approximately 46 beats/minute with associated hypotension. Her lowest blood | | pressure was 80/44. She received 10 mg of ephedrine and 200 cc of | | additional Crystalloid fluid. She responded to this with an elevation in | | her blood pressure to approximately 100/50 and an increase in her pulse rate | | to the 60s. | | | | Sponge and needle counts were correct times two. The patient tolerated the | | procedure well. She was taken to the Post Anesthesia Care Unit, awake but | | intubated. Once the Post Anesthesia Care Unit, she was extubated without | | difficulty. She was breathing spontaneously. | | | | | | | | Stephen Johnson M.D. | | Resident, Professor and Staff Air Defense Officer, | | Obstetrics & Gynecology Obstetrics and Gynecology | | | | MILTON/nancy | | | | A | | | | cc: | | | | | | | | YIN VEGA MD | | [address] [facility] [address] | | [place] [address] | | | | | | | | MIKEY VAZQUEZ MD | | [address] | | [place] [address] | | | + + documented in this encounter Visit Diagnoses Not on filedocumented in this encounter"
--- OUTSIDE RECORDS SUMMARY | ~2019-09-10 | XMS | Encounter Summary ---
Demographics + + + | Address | [address] | | | [place] [address] | + + + | Home Phone | | + + + | Preferred Language | Unknown | + + + | Marital Status | | + + + | Baptist Affiliation | MET | + + + | Race | White | + + + | Ethnic Group | Not or | + + + Author + + + | Author | [facility] | + + + | Organization | [facility] | + + + | Address | Unknown | + + + | Phone | Unavailable | + + + Support + + + + + | Name | Relationship | Address | Phone | + + + + + | Regulo Hong | ECON | [address] | | | | | [place], [place] | | | | | [address] | | + + + + + Care Team Providers + +------+ + | Care Senior Caregiver Name | Role | Phone | + +------+ + PCP | Unavailable | + +------+ + Encounter Details +--------+ + + + + | Date | Type | Department | Care Team | Description | +--------+ + + + + | 03/11/ | Transcribed | All[facility] Clinic at | Dictation, Other | Transcribed | | 1995 | | [facility] [address] | | | | | | [address] | | | | | | Mailcode: [id number] | | | | | | [place] | | | | | | [place], | | | | | | [place] [address] | | | | | | [phone] | | | +--------+ + + + [...] as of this encounter Progress Notes Interface, Delivery Coordinator In - 01/02/2007 3:07 AM PDT [address] [address] or March 11, 1996 YIN VEGA MD [address] [place] [address] RE:Una Hong MR#:[id number] Vega: I saw your patient, Una Hong, again recently on her return from [place]. Unfortunately, she continues to be troubled by some urge type incontinence which interestingly does not occur at all during the daytime and only affects her when she wakes during the night and occurs when she moves out of bed to go to the bathroom. There is nothing in her history to suggest a stress type component. Examination shows that she does have some descensus of the anterior vaginal wall and urethra. The vaginal vault itself is very well supported. I do not feel at this stage that this type of incontinence could be well managed by any further surgical procedure. She continues to be concerned about some generalized abdominal discomfort, and she also is concerned about some edema of both legs that was more marked while she was active in [place]. I have prescribed some Levsinex at nighttime as a bladder "sedative" as she did notice some improvement from this when she was using it before. Additionally, I have encouraged her to go back on to Premarin which she previously discontinued because of breast tenderness. I think in view of her quite marked bladder symptoms that a resumption of Premarin therapy would be appropriate. She also has spent some time with the nurse who specializes in behavioral modification for patients with detrusor instability, and I hope that she was able to give her some help. I am anxious to stay in touch with Ms. Hong if this problem is not resolved and will be available at any time if you feel that we need to reevaluate the situation on her behalf. Thanks for your help and best wishes. Yours sincerely, Hieu Robert M.D. Professor and Body Straightener, Obstetrics and Gynecology DEON:gus C:03/18/96 rh documented in this encounter Plan of Treatment Not on filedocumented as of this encounter Visit Diagnoses Not on filedocumented in this encounter
--- OUTSIDE RECORDS SUMMARY | ~2019-09-10 | XMS | Clinical Summary ---
Demographics + + + | Address | [address] | | | [place] [address] | + + + | Home Phone | | + + + | Preferred Language | Unknown | + + + | Marital Status | | + + + | Jew Affiliation | Unknown | + + + | Race | Unknown | + + + | Ethnic Group | Unknown | + + + Author + + + | Author | [facility] (Historical as of | | | 05-24-19) | + + + | Organization | [facility] (Historical as of | | | 05-24-19) | + + + | Address | Unknown | + + + | Phone | Unavailable | + + + Support + + +---------+ + | Name | Relationship | Address | Phone | + + +---------+ + | Regulo Hong | CLAIRE | Unknown | | + + +---------+ + Care Team Providers + +------+ + | Care Assembling Machine Operator Name | Role | Phone | + +------+ + | Rosaura Jaime PA-C | PP | | + +------+ + Allergies + + + + + + | Active Allergy | Reactions | Severity | Noted | Comments | | | | | Date | | + + + + + + | Lisinopril | Cough | Low | 02/06/20 | | | | | | 17 | | + + + + + + Current Medications + + + +---------+------+------+-------+ | Prescription | Sig. | Disp. | Refills | Star | End | Statu | | | | | | t | Date | s | | | | | | Date | | | + + + +---------+------+------+-------+ | losartan (COZAAR) | | | | 04/0 | | Activ | | 50 MG tablet | | | | 3/20 | | e | | | | | | 17 | | | + + + +---------+------+------+-------+ | traMADol (ULTRAM) | | | | 04/1 | | Activ | | 50 MG tablet | | | | 3/20 | | e | | | | | | 17 | | | + + + +---------+------+------+-------+ | ibandronate sodium | Inject 3 mg into the | | | | | Activ | | (BONIVA) 3 MG/3ML | vein. | | | | | e | | SOLN injection | | | | | | | + + + +---------+------+------+-------+ | Calcium Carbonate | Take by mouth. | | | | | Activ | | (CALCIUM 600 PO) | | | | | | e | + + + +---------+------+------+-------+ | | Take by mouth. | | | | | Activ | | GLUCOSAMINE-CHONDROI | | | | | | e | | TIN PO | | | | | | | + + + +---------+------+------+-------+ | [place]-3 Fatty | Take by mouth. | | | | | Activ | | Acids (OMEGA 3 PO) | | | | | | e | + + + +---------+------+------+-------+ | DIPHENHYDRAMINE | Take by mouth. | | | | | Activ | | HCL, SLEEP, PO | | | | | | e | + + + +---------+------+------+-------+ | gabapentin | Take 300 mg by mouth | | | | | Activ | | (NEURONTIN) 300 MG | 4 (four) times | | | | | e | | capsule | daily. | | | | | | + + + +---------+------+------+-------+ | nitrofurantoin | Take 100 mg by mouth | | | | | Activ | | (MACRODANTIN) 100 MG | daily. | | | | | e | | capsule | | | | | | | + + + +---------+------+------+-------+ | Multiple | Take by mouth. | | | | | Activ | | Vitamins-Minerals | | | | | | e | | (MULTIPLE | | | | | | | | VITAMINS/WOMENS PO) | | | | | | | + + + +---------+------+------+-------+ | pramipexole | Take 0.25 mg by | | | | | Activ | | (MIRAPEX) 0.25 MG | mouth 2 (two) times | | | | | e | | tablet | daily. | | | | | | + + + +---------+------+------+-------+ | levothyroxine | Take 150 mcg by | | | | | Activ | | (SYNTHROID) 150 MCG | mouth daily. | | | | | e | | tablet | | | | | | | + + + +---------+------+------+-------+ | acetaminophen | Take 325 mg by mouth | | | | | Activ | | (TYLENOL) 325 MG | every 6 (six) hours | | | | | e | | tablet | as needed for Pain. | | | | | | + + + +---------+------+------+-------+ | albuterol (PROAIR | Inhale 2 puffs into | | | | | Activ | | HFA) 108 (90 BASE) | the lungs every 4 | | | | | e | | MCG/ACT inhaler | (four) hours as | | | | | | | | needed for Wheezing. | | | | | | + + + +---------+------+------+-------+ | azithromycin | TAKE TWO TABLETS BY | 6 | 0 | 10/0 | | Activ | | (ZITHROMAX) 250 MG | MOUTH NOW then ONE | tablet | | 4/20 | | e | | tabletIndications: | TABLET DAILY DAY 2-5 | | | 17 | | | | Moderate COPD | | | | | | | | (chronic obstructive | | | | | | | | pulmonary disease) | | | | | | | | ([facility]) | | | | | | | + + + +---------+------+------+-------+ | predniSONE | Take 2 tabs daily | 11 | 0 | 10/0 | | Activ | | (DELTASONE) 20 MG | for 3 days, then 1 | tablet | | 4/20 | | e | | tabletIndications: | tab daily for 5 days | | | 17 | | | | Moderate COPD | then STOP | | | | | | | (chronic obstructive | | | | | | | | pulmonary disease) | | | | | | | | ([facility]) | | | | | | | + + + +---------+------+------+-------+ | albuterol (PROAIR | Inhale 2 puffs into | 1 | 5 | 02/2 | 02/2 | Activ | | HFA) 108 (90 Base) | the lungs every 4 | Inhaler | | 0/20 | 0/20 | e | | MCG/ACT inhaler | (four) hours as | | | 19 | 20 | | | | needed for Wheezing. | | | | | | + + + +---------+------+------+-------+ | ANORO ELLIPTA | Inhale 1 puff into | 3 each | 3 | 07/ | | Activ | | 62.5-25 MCG/INH | the lungs daily. | | | 4/20 | | e | | inhalerIndications: | | | | 19 | | | | Moderate COPD | | | | | | | | (chronic obstructive | | | | | | | | pulmonary disease) | | | | | | | | ([facility]) | | | | | | | + + + +---------+------+------+-------+ Active Problems + + + | Problem | Noted Date | + + + | Aortic valve stenosis | 04/26/2018 | + + + + + | Overview: Overview: | | trivial | + + + + + | GERD (gastroesophageal reflux disease) | 04/26/2018 | + + + | Hypertension | 04/26/2018 | + + + | Hypothyroidism | 04/26/2018 | + + + | Macular degeneration | 04/26/2018 | + + + | Osteoarthrosis | 04/26/2018 | + + + | RLS (restless legs syndrome) | 04/26/2018 | + + + | Scoliosis | 04/26/2018 | + + + | Urinary incontinence | 04/26/2018 | + + + | Hiatal hernia | 07/11/2017 | + + + | Moderate COPD (chronic obstructive pulmonary disease) (HCC) | 02/05/2017 | + + + Family History + + +------+ + | Medical History | Relation | Name | Comments | + + +------+ + | COPD | Father | | | + + +------+ + | Stroke | Mother | | | + + +------+ + + +------+ + + | Relation | Name | Status | Comments | + +------+ + + | Father | | | | | | | (Age | | | | | 88) | | + +------+ + + | Mother | | | | | | | (Age | | | | | 90) | | + +------+ + + Social [...] + +---------+ + | Alcohol Use | Drinks/We | oz/Week | Comments | | | ek | | | + + +---------+ + | Yes | | | | + + +---------+ + + + + | Sex Assigned at | Date Recorded | | | | + + + | Not on file | | + + + Last Filed Vital Signs + + + + | Vital Sign | Reading | Time Taken | + + + + | Blood Pressure | 133/73 | 04/26/2018 9:57 AM PDT | + + + + | Pulse | 87 | 04/26/2018 9:57 AM PDT | + + + + | Temperature | 36.8 C (98.2 F) | 04/26/2018 9:57 AM PDT | + + + + | Respiratory Rate | - | - | + + + + | Oxygen Saturation | 98% | 04/26/2018 9:57 AM PDT | + + + + | Inhaled Oxygen | - | - | | Concentration | | | + + + + | Weight | 61.2 kg (135 lb) | 04/26/2018 9:57 AM PDT | + + + + | Height | 160 cm (5' 3") | 04/26/2018 9:57 AM PDT | + + + + | Body Mass Index | 23.91 | 04/26/2018 9:57 AM PDT | + + + + Plan of Treatment Not on file Results Not on filefrom Last 3 Months Insurance + +--------+ +------+-------+ + | Payer | Benefi | Subscriber | Type | Phone | Address | | | t Plan | ID | | | | | | / | | | | | | | Group | | | | | + +--------+ +------+-------+ + | MEDICARE | MEDICA | [id number] | | | [address] | | | [place] | | | | [place] [address] | | | IP-OP | | | | | + +--------+ +------+-------+ + | [employer] | UNITED | [id number] | | | | | | | | | | | | | HEALTH | | | | | | | CARE - | | | | | | | AARP | | | | | + +--------+ +------+-------+ + + +--------+ +--------+ + + | Guarantor Name | Accoun | Relation to | Date | Phone | Billing Address | | | t Type | Patient | of | | | | | | | | | | + +--------+ +--------+ + + | UNA HONG | Person | Self [birth year] Home: | [address] | | | al/Fam | | [phone] | [phone] [place] [address] | | | [place]igh | | | [phone] | | + +--------+ +--------+ + +
--- OUTSIDE RECORDS SUMMARY | ~2019-09-10 | XMS | Encounter Summary ---
Demographics + + + | Address | [address] | | | [place] [address] | + + + | Home Phone | | + + + | Preferred Language | Unknown | + + + | Marital Status | | + + + | Shinto Affiliation | MET | + + + | Race | White | + + + | Ethnic Group | Not or | + + + Author + + + | Author | [facility] | + + + | Organization | [facility] | + + + | Address | Unknown | + + + | Phone | Unavailable | + + + Support + + + + + | Name | Relationship | Address | Phone | + + + + + | Regulo Hong | ECON | [address] | | | | | [place], [place] | | | | | [address] | | + + + + + Care Team Providers + +------+ + | Care Music Intern Name | Role | Phone | + +------+ + PCP | Unavailable | + +------+ + Encounter Details +--------+ + + + + | Date | Type | Department | Care Team | Description | +--------+ + + + + | 05/30/ | Office | General Internal | Note, Outpatient | Progress Note | | 1995 | Visit-Trans | Medicine [address] | Clinic | | | | criyung | [address] | | | | | | Mailcode: [id number] | | | | | | Outpatient Clinic | | | | | | [place] | | | | | | [place], [place] | | | | | | [address] | | | | | | [phone] | | | +--------+ + + + [...] as of this encounter Progress Notes Interface, Fur Cutting Machine Operator In - 12/28/2006 3:09 AM PDT CLINIC DATE: 05/30/96 [facility] CLINIC: Ms. Hong returns to the [facility] seven months after surgery which included anterior colporrhaphy, vaginal hysterectomy, sacral spinous fixation and subsequent laparotomy for hemoperitoneum. She had a slow recovery from her surgery and particularly with regard to abdominal discomfort and bladder symptoms of bladder irritability. She now returns reporting general improvement. Her bladder function has essentially returned to normal although she occasionally has episodes of urgency at night time. She continues to have some upper abdominal discomfort which is somewhat nonspecific, but seems to be aggravated by certain food stuffs. Her energy level is slowly returning to normal. Bowel function has been entirely normal. EXAMINATION: Examination shows the vaginal vault to be well supported, there is some laxity of the anterior vaginal wall, but this does not represent a significant defect and the posterior wall is well supported. IMPRESSION: Ms. Hong continues to make satisfactory but slow recovery from her surgery. PLAN: She will be seeing her privacy analyst, Dr. Richardson in [place] for ongoing medical care and she was encouraged to increase her level of activity and particularly to do pelvic floor exercises. She returns to [place] on a regular basis as her daughter lives in this area and she will return for further check one year from now. Hieu Robert M.D. Professor and Comber Fixer, Obstetrics and Gynecology DEON/moon documented in this encounter Plan of Treatment Not on filedocumented as of this encounter Visit Diagnoses Not on filedocumented in this encounter"
--- OUTSIDE RECORDS SUMMARY | ~2019-09-10 | XMS | Clinical Summary ---
Demographics + + + | Address | [address] | | | [place] [address] | + + + | Home Phone | | + + + | Preferred Language | Unknown | + + + | Marital Status | | + + + | Uatsdin Affiliation | MET | + + + [...] [place], [place] | | | | | [address] | | + + + + + Care Team Providers + +------+ + | Care Electro Optics Engineer Name | Role | Phone | + +------+ + PCP | Unavailable | + +------+ + Source Comments STONE is fully live on both [facility] and [facility] Allergies No Known Allergies Medications Not on [...]
--- OUTSIDE RECORDS SUMMARY | ~2019-09-10 | XMS | Encounter Summary ---
Demographics + + + | Address | [address] | | | [place] [address] | + + + | Home Phone | | + + + | Preferred Language | Unknown | + + + | Marital Status | | + + + | Shinto Affiliation | Unknown | + + + | Race | Unknown | + + + | Ethnic Group | Unknown | + + + Author + + + | Author | [facility] | | | and [place] | + + + | Organization | [facility] | | | and [place] [...] Team Providers + +------+ + | Care Piano Refinisher Name | Role | Phone | + [...] Medication Refill | | 2017 | | [facility] | E, DO [address] | | | | | MEDICAL CLINIC [address] | [place], [place] | | | | | [address] [place], | [address] | | | | | [place] [address] | [phone] | | | | | [phone] | | | +--------+--------+ + + + [...]
--- OUTSIDE RECORDS SUMMARY | ~2019-09-10 | XMS | Encounter Summary ---
Demographics + + + | Address | [address] | | | [place] [address] | + + + | Home Phone | | + + + | Preferred Language | Unknown | + + + | Marital Status | | + + + | Scientologist Affiliation | Unknown | + + + | Race | Unknown | + + + | Ethnic Group | Unknown | + + + Author + + + | Author | [facility] | | | and [place] | + + + | Organization | [facility] | | | and [place] [...] Team Providers + +------+ + | Care Financial Investment Adviser Name | Role | Phone | + [...] MD | obstructive | | | | [place], | | pulmonary disease) | | | | [place] [address] | | ([facility]); Need for | | | | [phone] | | vaccination with | | | [...] her parents both smoked, also worked at [employer] | + + + + +---------+ + [...] a shot in her eye yesterday in [facility]. 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 Alcohol Use: No Drug Use: No Sexual Activity: None Other Topics Concern None Social History Narrative Lives: in [place] With: her Grew up: in [place] Has previously lived in: [place], [place] Exposure to toxic chemicals: has been [...] made to ensure accuracy; however, inadvertent computerized ladies attendant errors may be pre sent. documented in [...]
--- OUTSIDE RECORDS SUMMARY | ~2019-09-10 | XMS | Encounter Summary ---
Demographics + + + | Address | [address] | | | [place] [address] | + + + | Home Phone | | + + + | Preferred Language | Unknown | + + + | Marital Status | | + + + | Orthodoxy Affiliation | Unknown | + + + | Race | Unknown | + + + | Ethnic Group | Unknown | + + + Author + + + | Author | [facility] | | | and [place] | + + + | Organization | 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 | | | | | ([facility]) | | + +--------+ + + [...] PFT PULMONARY FUNCTION TESTING ORDERS Full PFT ([place] w/BD, lung volumes, diffusion)?: Yes (10/26/2014 6:25 [...] Rayo MD | | | 10/26/2014 18:20 [facility] CC: | | | Ramon Richardson | [...] Corrie Rayo MD 10/26/2014 [facility]:20[facility] | [facility] | |Electronically signed by: Corrie Rayo MD 10/26/2014 18:20 | |[facility] | | | |CC: Ramon Richardson | [...]
--- OUTSIDE RECORDS SUMMARY | ~2019-09-10 | XMS | Encounter Summary ---
Demographics + + + | Address | [address] | | | [place] [address] | + + + | Home Phone | | + + + | Preferred Language | Unknown | + + + | Marital Status | | + + + | Rastafari Affiliation | Unknown | + + + | Race | Unknown | + + + | Ethnic Group | Unknown | + + + Author + + + | Author | [facility] | | | and [place] | + + + | Organization | [facility] | | | and [place] | [...] Team Providers + +------+ + | Care Operator Control Room Name | Role | Phone | + [...] Description | +--------+--------+ + + + | 07/03/ | Refill | [facility] | [place]ba | Medication Refill | | 2017 | | [facility] | E, DO [address] | | | | | MEDICAL CLINIC [address] | [place], [place] | | | | | [address] [place], | [address] | | | | | [place] [address] | [phone] | | | | | [phone] | | | +--------+--------+ + + + [...]
--- OUTSIDE RECORDS SUMMARY | ~2019-09-10 | XMS | Encounter Summary ---
Demographics + + + | Address | [address] | | | [place] [address] | + + + | Home Phone | | + + + | Preferred Language | Unknown | + + + | Marital Status | | + + + | Restorationism Affiliation | MET | + + + | Race | White | + + + | Ethnic Group | Not or | + + + Author + + + | Author | [facility] | + + + | Organization | [facility] | + + + | Address | Unknown | + + + | Phone | Unavailable | + + + Support + + + + + | Name | Relationship | Address | Phone | + + + + + | Regulo Hong | ECON | [address] | | | | | [place], [place] | | | | | [address] | | + + + + + Care Team Providers + +------+ + | Care Carpenter Mold Name | Role | Phone | + +------+ + PCP | Unavailable | + +------+ + Encounter Details +--------+ + + + + | Date | Type | Department | Care Team | Description | +--------+ + + + + | 10/31/ | Results | LAB [facility]ORE [address] | Reid, Faculty | | | 1995 | Only | [address] | [phone] | | | | | [place], [place] | | | | | | [address] | | | | | | [phone] | | | +--------+ + + + [...] thickness. | | | | | | Test Engineering Technician sections | | | | | | [...] | | | | | | and operations support representative | | | | | | [...] | + + + + + | [facility] | [address] | [place] [address] | | | PATHOLOGY | [address] | | | + + + + + documented in this encounter Visit Diagnoses Not on filedocumented in this encounter"
--- OUTSIDE RECORDS SUMMARY | ~2019-09-10 | XMS | Encounter Summary ---
Demographics + + + | Address | [address] | | | [place] [address] | + + + | Home Phone | | + + + | Preferred Language | Unknown | + + + | Marital Status | | + + + | Sabianist Affiliation | Unknown | + + + | Race | Unknown | + + + | Ethnic Group | Unknown | + + + Author + + + | Author | [facility] | | | and [place] | + + + | Organization | [facility] | | | and [...] Team Providers + +------+ + | Care Cleaner And Trimmer Name | Role | Phone | + [...] Medication Refill | | 2017 | | [facility] | E, DO [address] | | | | | MEDICAL CLINIC [address] | [place], [place] | | | | | [address] [place], | [address] | | | | | [place] [address] | [phone] | | | | | [phone] | | | +--------+--------+ + + + [...]
--- OUTSIDE RECORDS SUMMARY | ~2019-09-10 | XMS | Encounter Summary ---
Demographics + + + | Address | [address] | | | [place] [address] | + + + | Home Phone | | + + + | Preferred Language | Unknown | + + + | Marital Status | | + + + | Denominational Affiliation | Unknown | + + + | Race | Unknown | + + + | Ethnic Group | Unknown | + + + Author + + + | Author | [facility] | | | and [place] | + + + | Organization | [facility] | | | and [...] Team Providers + +------+ + | Care Diesel Engine Fitter Name | Role | Phone | + +------+ + | Rosaura Jaime | PCP | | | PA-C | | | + +------+ + Encounter Details +--------+ + + + + | Date | Type | Department | Care Team | Description | +--------+ + + + + | 05/06/ | Orders Only | [facility] | Provider, | | | 2018 | | [facility] | [address] | | | | | [address] | [place] | | | | | [address] [place], [place] | [place] [address] | | | | | [address] | | | | | | [phone] | | | +--------+ + + + [...]
--- OUTSIDE RECORDS SUMMARY | ~2019-09-10 | XMS | Encounter Summary ---
Demographics + + + | Address | [address] | | | [place] [address] | + + + | Home Phone | | + + + | Preferred Language | Unknown | + + + | Marital Status | | + + + | Yarsani Affiliation | Unknown | + + + | Race | Unknown | + + + | Ethnic Group | Unknown | + + + Author + + + | Author | [facility] | | | and [place] | + + + | Organization | [facility] | | | and [place] | + + + | Address | Unknown | + + + | Phone | Unavailable | + + + Support + + +---------+ + | Name | Relationship | Address | Phone | + + +---------+ + | Regulo aHl | ECON | Unknown | | + + +---------+ + Care Team Providers + +------+ + | Care Practice Representative Name | Role | Phone | + +------+ + | Ramon Richardson MD | PCP | | + +------+ + Reason for Visit +---------+ + | Reason | Comments | +---------+ + | Results | nocturnal oximetry | +---------+ + Encounter Details +--------+ + + + + | Date | Type | Department | Care Team | Description | +--------+ + + + + | 10/30/ | Telephone | [facility] | [place], | Results (nocturnal | | 2014 | | PULMONARY [address] | Corrie Bell MD | oximetry) | | | | [place], | | | | | | [place] [address] | | | | | | [phone] | | | +--------+ + + + + Social History + +-------+ +--------+------+ | Tobacco Use | Types | Packs/Day | Years | Date | | | | | Used | | + +-------+ +--------+------+ | Never Smoker | | | | | + +-------+ +--------+------+ + + | Comments: her parents both smoked, also worked at [employer] | + + + + +---------+ + [...]
--- OUTSIDE RECORDS SUMMARY | ~2019-09-10 | XMS | Encounter Summary ---
Demographics + + + | Address | [address] | | | [place] [address] | + + + | Home Phone | | + + + | Preferred Language | Unknown | + + + | Marital Status | | + + + | Uatsdin Affiliation | Unknown | + + + | Race | Unknown | + + + | Ethnic Group | Unknown | + + + Author + + + | Author | [facility] | | | and [place] | + + + | Organization | [facility] | | | and [place] [...] Team Providers + +------+ + | Care White Sugar Pan Tank Operator Name | Role | Phone | [...] Medication Refill | | 2018 | | [facility] | E, DO [address] | | | | | MEDICAL CLIN[address] | [place], [place] | | | | | [address] [place], | [address] | | | | | [place] [address] | [phone] | | | | | [phone] | | | +--------+--------+ + + + [...]
--- OUTSIDE RECORDS SUMMARY | ~2019-09-10 | XMS | Encounter Summary ---
Demographics + + + | Address | [address] | | | [place] [address] | + + + | Home Phone | | + + + | Preferred Language | Unknown | + + + | Marital Status | | + + + | Adventist Affiliation | Unknown | + + + | Race | Unknown | + + + | Ethnic Group | Unknown | + + + Author + + + | Author | [facility] | | | and [place] | + + + | Organization | 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 | | | | | ([facility]) | | + +--------+ + + + [...] PFT PULMONARY FUNCTION TESTING ORDERS Full PFT ([place] w/BD, lung volumes, diffusion)?: Yes (10/26/2014 6:25 [...] Rayo MD | | | 10/26/2014 18:20 [facility] CC: | | | Ramon Richardson [...] Corrie Rayo MD 10/26/2014 18:20[facility] | [facility] Ram[facility] | |Electronically signed by: Corrie Rayo MD 10/26/2014 18:20 | |[facility] | | | |CC: Ramon Richardson [...]
--- OUTSIDE RECORDS SUMMARY | ~2019-09-10 | XMS | Encounter Summary ---
Demographics + + + | Address | [address] | | | [place] [address] | + + + | Home Phone | | + + + | Preferred Language | Unknown | + + + | Marital Status | | + + + | Church Affiliation | Unknown | + + + | Race | Unknown | + + + | Ethnic Group | Unknown | + + + Author + + + | Author | [facility] | | | and [place] | + + + | Organization | [facility] | | | and [place] [...] Team Providers + +------+ + | Care Ride Mechanic Name | Role | Phone | + [...] MD | oximetry) | | | | [place], | | | | | | [place] [address] | | | | | | [phone] | | | +--------+ + + + + Social History + +-------+ +--------+------+ | Tobacco Use | Types | Packs/Day | Years | Date | | | | | Used | | + +-------+ +--------+------+ | Never Smoker | | | | | + +-------+ +--------+------+ + + | Comments: her parents both smoked, also worked at [email or web address] | + + + + +---------+ + [...]
--- OUTSIDE RECORDS SUMMARY | ~2019-09-10 | XMS | Encounter Summary ---
Demographics + + + | Address | [address] | | | [place] [address] | + + + | Home Phone | | + + + | Preferred Language | Unknown | + + + | Marital Status | | + + + | Lutheran Affiliation | Unknown | + + + | Race | Unknown | + + + | Ethnic Group | Unknown | + + + Author + + + | Author | [facility] | | | and [place] | + + + | Organization | [facility] | | | and [place] [...] Team Providers + +------+ + | Care Public Address System Installer Name | Role | Phone | + +------+ + | Ramon Richardson MD | PCP | | + +------+ + Reason for Visit +--------+ + | Reason | Comments | +--------+ + | COPD | 6 month follow up | +--------+ + Encounter Details +--------+---------+ + + + | Date | Type | Department | Care Team | Description | +--------+---------+ + + + | 09/27/ | Office | [facility] [place] | Offenstein, | Chronic obstructive | | 2015 | Visit | PULMONARY [address] | Corrie Bell MD | pulmonary disease, | | | | [place], | | unspecified COPD | | | | [place] [address] | | type (HCC); Cough; | | | | [phone] | | Gastroesophageal | | | | | | reflux disease, | | | | | | esophagitis presence | | | | | | not specified; Need | | | | | | for vaccination | | | | | | with 13-polyvalent | | | | | | [...] her parents both smoked, also worked at [employer] | + + + + +---------+ + [...] + | Blood Pressure | 110/64 | 09/27/2015 12:42 PM | | | | | PST | | + + + + + | Pulse | 76 | 09/27/2015 12:42 PM | | | | | PST | | + + + + + | Temperature | - | - | | + + + + + | Respiratory Rate | - | - | | + + + + + | Oxygen Saturation | 95% | 09/27/2015 12:42 PM | | | | | PST | | + + + + + | Inhaled Oxygen | - | - | | | Concentration | | | | + + + + + | Weight | 63.5 kg (140 lb) | 09/27/2015 12:42 PM | | | | | PST | | + + + + + | Height | 162.6 cm (5' 4") | 09/27/2015 12:42 PM | | | | | PST | | + + + + + | Body Mass Index | 24.03 | 09/27/2015 12:42 PM | | | | | PST | | + + + + + documented in this encounter Patient Instructions Patient Instructions Corrie Rayo MD - 09/27/2015 1:52 PM PSTI would try to cut the coffee back to 1 cup in the morning. I would also skip the ice cream before bed time. If you want it, you should eat supper a little earlier, and then eat the ice cream 4 hours bef ore bedtime. Try making your lunch the biggest meal of the day, then eat a small dinner vicki y, then have the ice cream at 6:30pm. Go ahead and stop the Qvar. If you have symptoms, use the ProAir (red one). When you run out of your current Spiriva, start on Incruse Ellipta 1 inhalation once daily. If this is not covered, let us know and we will try to find something else. When you see Dr. Richardson next, make sure you get the Prevnar. documented in this encounter Progress Notes Corrie Rayo MD - 09/27/2015 12:47 PM PSTFormatting of this note might be differe nt from the original. Pulmonary Follow Up HPI Una Hong is a 85 y.o. female patient of Ramon Richardson MD here today for foll ow up of COPD. At their last visit, we had continued her on Spiriva. She trialed stopping this in April as she was having difficulty walking due to hip and knee issues, and she thought the Spiriva mi ght be causing it. She went back on it as this did not seem to get better off of this. She has had a few episodes of difficulty breathing in the evenings when it was cold out. Rae nolan used her Qvar inhaler, and felt like it helped her. She had been busy during the daytime, and usually if she sits and rests, this will improve, but a couple of times, this did not, s o she used the Qvar, and she did not feel like she was short of breath that night. She does also have ProAir in the car. She is currently on a regimen of Spriva once daily. She has never tried using the ProAir as she was uncertain if she should use this or the Qvar for acute symptoms. She returns today for routine follow up. Currently she is able to walk very little at her own pace on level ground. She is not exerc ising regularly. She has limited her walking because of her hips and knees, which just don't work. She was doing physical therapy in the water, which is on hold right now for physical therapy. She has been coughing in the night. She also coughs in the morning when she first gets up a nd then it subsides. In the night when she coughs, she has one time had to get up and vomit up her stomach contents. She does have a lot of mucous production, which is cloudy/clear. Rae nolan has not had hemoptysis. She has been evaluated for nocturnal oxygen and does not need to use it. She does not have symptoms of heartburn or reflux. She takes omeprazole once daily for this . She sleeps with the head of the bed elevated 6 inches. She eats dinner about 4 hours befor e bedtime, and about 50% of the time eats ice cream before bedtime. She does drink 2-3 cups of coffee in the morning. 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 [DISCONTINUED] diclofenac (VOLTAREN-XR) 100 mg ER tablet Take 100 mg by mouth daily (wi th breakfast). [DISCONTINUED] Diclofenac Potassium 50 MG PACK Take by [...] facility-administered encounter medications on file as of 09/27/2015. Review of Systems: General: []Weight loss/gain (over 10 lbs) []Fever/chills/sweats []Night sweats EENT: []Hearing loss []Vision loss/change []Sinus congestion/nasal drainage []Nosebleeds [] Hoarseness Cardiac: []Chest pain []Palpitations/heart racing [x]Swelling of legs/ankles []Waking up at night short of breath []Difficulty sleeping flat Gastrointestinal: []Nausea/vomiting []Difficulty swallowing []Heartburn/acid reflux []Loss of appetite []Ab dominal pain Urologic: []Blood in urine []Frequent urination at night []Burning/painful urination []Difficulty wit h urination Objective BP 110/64 mmHg | Pulse 76 | Ht 1.626 m (5' 4") | Wt 63.504 kg (140 lb) | BMI 24.02 kg/m2 | SpO2 95% | ? No RA General Appearance: Alert, [...] INFLUENZA, TRIVALENT PRESERVATIVE FREE (PED/ADOL/ADULT) 08/14/2014 PNEUMOCOCCAL POLYSACCHARIDE 23-VALENT (PPSV23) 10/20/2011 Assessment ICD-10-CM ICD-9-CM 1. Chronic obstructive pulmonary disease, unspecified COPD type (HCC) J44.9 496 This seems well controlled on Spiriva once daily in terms of dyspnea. 2. Cough R05 786.2 Has had cough occuring recently on and off, with some mucous production with no associated illness. Given that it is nocturnal and morning in occurrence, without pu rulent sputum, dyspnea or fever, I would not say she is having an exacerbation. I do wonder if she is having worsening silent nocturnal reflux as a side effect of the Spiriva, which is a known possibility. Though reluctant, I suggested trying switching this to Incruse in the same class, if covere d by her insurance, to see if the cough improves as being a newer generation agent, it repor tedly has less side effects like heartburn. 3. Gastroesophageal reflux disease, esophagitis presence not specified K21.9 530.81 On once daily omeprazole. She has had post tussive emesis, unclear if this was reflux related. She does drink a fair amount of coffee and often eats ice cream before bedtime, which we address ed. 4. Need for vaccination with 13-polyvalent pneumococcal conjugate vaccine Z23 V03.82 Discus sed today and she notes Dr. Richardson had mentioned she needed this at her next appointment at his office, so we will defer to his next visit, so she can keep her vaccine records all in o ne place. Plan 1.Discussed anti reflux measures. 2.Change Spiriva to Incruse one inhalation once daily. 3.Stop the Qvar. 4. Use the ProAir as needed. 5. Get Prevnar vaccine at next appointment with Dr. Richardson. She was advised to call if new pulmonary symptoms were to develop. Return to clinic in 3 months, or sooner with concerns. CC: Ramon Richardson MD Portions of this report were transcribed using voice recognition software. Every effort wa s made to ensure accuracy; however, inadvertent computerized help desk rep errors may be pre sent. documented in this encounter Plan of Treatment Not on filedocumented as of this encounter Visit Diagnoses + + | Diagnosis | + + | Chronic obstructive pulmonary disease, unspecified COPD type (HCC) | + + | Cough | + + | Gastroesophageal reflux disease, esophagitis presence not specified | + + | Need for vaccination with 13-polyvalent pneumococcal conjugate vaccine | + + documented in this encounter
--- OUTSIDE RECORDS SUMMARY | ~2019-09-10 | XMS | Encounter Summary ---
Demographics + + + | Address | [address] | | | [place] [address] | + + + | Home Phone | | + + + | Preferred Language | Unknown | + + + | Marital Status | | + + + | Yazidism Affiliation | Unknown | + + + | Race | Unknown | + + + | Ethnic Group | Unknown | + + + Author + + + | Author | [facility] | | | and [place] | + + + | Organization | [facility] | | | and [place] | + + + | Address | Unknown | + + + | Phone | Unavailable | + + + Support + + +---------+ + | Name | Relationship | Address | Phone | + + +---------+ + | Regulo Hla | ECON | Unknown | | + + +---------+ + Care Team Providers + +------+ + | Care Satellite Manager Name | Role | Phone | + +------+ + | Ramon Richardson MD | PCP | | + +------+ + Encounter Details +--------+ + + + + | Date | Type | Department | Care Team | Description | +--------+ + + + + | 09/28/ | Abstract | [facility] [place] | [place], | COPD (chronic | | 2013 | | PULMONARY [address] | Corrie Bell MD | obstructive | | | | [place], | | pulmonary disease) | | | | [place] [address] | | ([facility]) (Primary Dx) | | | | [phone] | | | +--------+ + + + [...]
--- OUTSIDE RECORDS SUMMARY | ~2019-09-10 | XMS | Encounter Summary ---
Demographics + + + | Address | [address] | | | [place] [address] | + + + | Home Phone | | + + + | Preferred Language | Unknown | + + + | Marital Status | | + + + | Baptism Affiliation | MET | + + + [...] [place], [place] | | | | | [address] | | + + + + + Care Team Providers + +------+ + | Care Industrial Truck Operator Name | Role | Phone | + +------+ + PCP | Unavailable | + +------+ + Encounter Details +--------+ + + + + | Date | Type | Department | Care Team | Description | +--------+ + + + + | 11/01/ | Results | | Other, Faculty | | | 1995 | Only | | [phone] | | +--------+ + + + + [...] | + +--------+ + + + | CHEST, 1 VIEW, | Urgent | 11/01/1995 | | Results for this | | PORTABLE | | 3:00 AM | | procedure are in the | | | | PST | | results section. | + +--------+ + + + | SURGICAL PATHOLOGY | Routin | 11/01/1995 | | Results for this | | | e | | | procedure are in the | | | | | | results section. | + +--------+ + + + documented in this encounter Results CHEST, 1 VIEW, PORTABLE (11/01/1995 3:00 AM PST) + + + + + + | Component | Value | Ref Range | Performed | Pathologist | | | | | At | Signature | + + + + + + | CHEST, 1 | Radiologist 1: CALVIN, | | | | | VIEW, Treva GOMEZ M.D.-Radiologist | | | | | PORTABLE | 2: Phong Singh, | | | | | | UNA ASCENCIO | | | | | | | | | | | | | | | | | | [birth year] AP | | | | | | PORTABLE CHEST done on | | | | | | 11/01/95 at | | | | | | 03:00Dictated on | | | | | | 11/02/95 COMPARISON: | | | | | | Exam of 10/30/95 | | | | | | FINDINGS: A right | | | | | | internal jugular | | | | | | intravenous catheter is | | | | | | in place.Its tip | | | | | | projects into the distal | | | | | | superior vena cava. | | | | | | There is | | | | | | nopneumothorax. The lung | | | | | | volumes are low | | | | | | bilaterally. There is | | | | | | interval increase inthe | | | | | | pulmonary vessels and | | | | | | their markings appear | | | | | | indistinct. There | | | | | | isobscuration of the | | | | | | left hemidiaphragm by | | | | | | basilar opacity. | | | | | | Heartappears grossly | | | | | | stable. IMPRESSION: 1. | | | | | | Increasing pulmonary | | | | | | edema. 2. Low lung | | | | | | volumes with left | | | | | | basilar opacity | | | | | | representing | | | | | | eitheratelectasis or | | | | | | infiltrate. 3. The tip | | | | | | of the internal jugular | | | | | | line is in the superior | | | | | | vena cavaand there is | | | | | | no pneumothorax. END OF | | | | | | IMPRESSION: | | | | + + + + + + + + | Specimen | + + | | + + + + + | Narrative | Performed At | + + + | Ordered by YAMILA MEHTA | | + + + + +---------+ + + | Performing | Address | City/State/Zipcode | Phone Number | | Organization | | | | + +---------+ + + | [facility] | | | | | RADIOLOGY | | | | + +---------+ + + SURGICAL PATHOLOGY (11/01/1995) + + + + + + | [...] | | | | 65 year old woman. NO | | | | | | HISTORY PROVIDED. | | | | | | GROSS DESCRIPTIONTwo | | | | | | specimens are received | | | | | | in formalin labeled as | | | | | | follows: #1 RIGHT | | | | | | OVARY: Present is a | | | | | | distal portion of | | | | | | fallopian tube and | | | | | | ovarymeasuring 3.0 x 2.8 | | | | | | x 1.5 cm. in aggregate. | | | | | | The fallopian tube is | | | | | | ofnormal course and | | | | | | caliber, and has a | | | | | | smooth, pink serosal | | | | | | surface.Adjacent to the | | | | | | fimbriated edge of the | | | | | | tube is a cystic | | | | | | structure filledwith | | | | | | clear fluid. It measures | | | | | | 1.1 x 0.8 x 0.6 cm. The | | | | | | ovary has aslightly | | | | | | nodular, white surface | | | | | | and measures 2.2 x 1.0 x | | | | | | 0.6 cm. Oncross section | | | | | | the ovary has numerous | | | | | | cysts filled with clear | | | | | | fluid,ranging from 0.3 | | | | | | to 0.5 cm. in diameter. | | | | | | The remainder of the | | | | | | parenchymais firm and | | | | | | white. Metal Casket Maker | | | | | | sections are submitted | | | | | | as follows:Cassette 1A | | | | | | contains fallopian tube | | | | | | and cyst adjacent to | | | | | | fallopian tube;cassette | | | | | | 1B contains ovary. | | | | | | #2 LEFT OVARY: Present | | | | | | are a portion of | | | | | | fallopian tube and an | | | | | | ovarymeasuring 3.3 x 2.0 | | | | | | x 0.7 cm. in aggregate. | | | | | | The fallopian tube is | | | | | | ofnormal course and | | | | | | caliber. Its serosal | | | | | | surface is smooth and | | | | | | pink. Theovary itself | | | | | | measures 2.5 x 1.3 x 0.8 | | | | | | cm. The surface is | | | | | | white andslightly | | | | | | irregular. On cut | | | | | | section the parenchyma | | | | | | has a vague | | | | | | nodularityand is | | | | | | yellow-white. No cysts | | | | | | are identified. | | | | | | Metal Casket Maker sections | | | | | | offallopian tube and | | | | | | ovary are submitted in | | | | | | cassette 2A. All | | | | | | tissue sections taken | | | | | | are submitted for | | | | | | microscopic | | | | | | evaluation.Case dictated | | | | | | by: Jamey Rivas, | | | | | | M.D./f | | | | | | FINAL DIAGNOSISRIGHT | | | | | | OVARY: FALLOPIAN TUBE | | | | | | WITH NO DIAGNOSTIC | | | | | | ABNORMALITY PARATUBAL | | | | | | CYST SENESCENT OVARY | | | | | | INCLUSION CYSTSLEFT | | | | | | OVARY: FALLOPIAN TUBE | | | | | | WITH NO DIAGNOSTIC | | | | | | ABNORMALITY SENESCENT | | | | | | OVARY Note: In the | | | | | | absence of clinical | | | | | | history, the diagnosis | | | | | | is based ongross and/or | | | | | | histologic findings | | | | | | only. Case | | | | | | reviewed by: Tino | | | | | | Angelica | | | | | | M.D. :dj | | | | | | My electronic signature | | | | | [...] | + + + + + | [facility] | [address] | [place] [address] | | | PATHOLOGY | [address] | | | + + + + + documented in this encounter Visit Diagnoses Not on filedocumented in this encounter"
--- OUTSIDE RECORDS SUMMARY | ~2019-09-10 | XMS | Encounter Summary ---
Demographics + + + | Address | [address] | | | [place] [address] | + + + | Home Phone | | + + + | Preferred Language | Unknown | + + + | Marital Status | | + + + | Yazidism Affiliation | Unknown | + + + | Race | Unknown | + + + | Ethnic Group | Unknown | + + + Author + + + | Author | [facility] | | | and [place] | + + + | Organization | [facility] | | | and [place] [...] Providers + +------+ + | Care Director Franchise Sales Name | Role | Phone | + [...] Medication Refill | | 2017 | | [facility] | E, DO [address] | | | | | [facility] [address] | [place], [place] | | | | | [address] [place], | [address] | | | | | [place] [address] | [phone] | | | | | [phone] | | | +--------+--------+ + + + [...]
--- OUTSIDE RECORDS SUMMARY | ~2019-09-10 | XMS | Encounter Summary ---
Demographics + + + | Address | [address] | | | [place] [address] | + + + | Home Phone | | + + + | Preferred Language | Unknown | + + + | Marital Status | | + + + | Synagogue Affiliation | Unknown | + + + | Race | Unknown | + + + | Ethnic Group | Unknown | + + + Author + + + | Author | [facility] | | | and [place] | + + + | Organization | [facility] | | | and [place] [...] Team Providers + +------+ + | Care Manager Supplier Name | Role | Phone | + [...] | | | | | Chronic | [address] | [address] | | | | | obstructive | [place], | [place], [place] | | | | | pulmonary | [place] [address] | [address] | | | | | disease, | | Phone: | | | | | unspecified | | [phone] | | | | | COPD type | | Fax: | | | | | ([facility]) | | [phone] | | | | | Procedures | | | | | | | IN PHYS | | | | | | | THERAPY | | | | | | | EVALUATION | | | | | | | IN | | | | | | | [...] + + | 12/27/ | Office | [facility] [place] | [place], | Chronic obstructive | | 2016 | Visit | PULMONARY [address] | Corrie Bell MD | pulmonary disease, | | | | [place], | | unspecified COPD | | | | [place] [address] | | type (HCC); | | | | [phone] | | Gastroesophageal | | | | [...] parents both smoked, also worked at a [employer] | + + + + +---------+ + [...] w arm water therapy for at the [facility] I would ask the therapist if they can do a wheelchair evaluation through [facility] and have them let us know, or [...] rescue inhaler as her current ProAir in [place] is quite old. 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 They will inquire if this can be done there, and call. Ambulatory referral to Physical Therapy Plan 1.Continue Spiriva once daily. 2.Referred for warm water therapy at the [facility] 3.Ask if wheelchair evaluation can be done at the [facility] and if not we can order here. [...] made to ensure accuracy; however, inadvertent computerized appraisal manager errors may be pre sent. documented [...]
--- OUTSIDE RECORDS SUMMARY | ~2019-09-10 | XMS | Encounter Summary ---
Demographics + + + | Address | [address] | | | [place] [address] | + + + | Home Phone | | + + + | Preferred Language | Unknown | + + + | Marital Status | | + + + | Anabaptist Affiliation | MET | + + + | Race | White | + + + | Ethnic Group | Not or | + + + Author + + + | Author | [facility] | + + + | Organization | [facility] | + + + | Address | Unknown | + + + | Phone | Unavailable | + + + Support + + + + + | Name | Relationship | Address | Phone | + + + + + | Regulo Hong | ECON | [address] | | | | | [place], [place] | | | | | [address] | | + + + + + Care Team Providers + +------+ + | Care Sweatband Cutting Machine Operator Name | Role | Phone [...] | | | | | | [facility] | | | | | | [place] [address] | | | | | | [phone] | | | +--------+ + + + [...] as of this encounter Discharge Summaries Interface, Metal Tile Setter In - 01/07/2007 7:57 AM PDT [address] [address] [facility] MEDICAL SUMMARY OF HOSPITALIZATION Med Rec No.: [id number] Admission Date: 10/31/95 Name: Una Hong Discharge Date: 11/06/95 STAFF PHYSICIAN: Hieu Robert M.D. Professor and Scoring Machine Operator, Obstetrics and Gynecology PRINCIPAL FINAL DIAGNOSIS: 1. 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 SIGNIFICANT HISTORY: A Pap [...] and Gynecology Hieu Robert M.D. Professor and Scoring Machine Operator, Obstetrics and Gynecology [place] /armando P cc: YIN VEGA MD [address] [place] [address] [address] [place] [address] MIKEY VAZQUEZ MD [address] [place] [address] documented in this encounter Plan of Treatment Not on filedocumented as of this encounter Visit Diagnoses Not on filedocumented in this encounter"
--- OUTSIDE RECORDS SUMMARY | ~2019-09-10 | XMS | Encounter Summary ---
Demographics + + + | Address | [address] | | | [place] [address] | + + + | Home Phone | | + + + | Preferred Language | Unknown | + + + | Marital Status | | + + + | Christianity Affiliation | Unknown | + + + | Race | Unknown | + + + | Ethnic Group | Unknown | + + + Author + + + | Author | [facility] | | | and [place] | + + + | Organization | [facility] | | | [...] Team Providers + +------+ + | Care Barrel Cap Setter Name | Role | Phone | + [...] | PHYSIATRY [address] | [address] | | | | | [address] | [place] | | | | | [place] [address] | [place] [address] | | | | | [phone] | | | +--------+ + + + [...]
--- OUTSIDE RECORDS SUMMARY | ~2019-09-10 | XMS | Encounter Summary ---
Demographics + + + | Address | [address] | | | [place] [address] | + + + | Home Phone | | + + + | Preferred Language | Unknown | + + + | Marital Status | | + + + | Sikh Affiliation | MET | + + + | Race | White | + + + | Ethnic Group | Not or | + + + Author + + + | Author | [facility] | + + + | Organization | [facility] | + + + | Address | Unknown | + + + | Phone | Unavailable | + + + Support + + + + + | Name | Relationship | Address | Phone | + + + + + | Regulo Hong | ECON | [address] | | | | | [place], [place] | | | | | [address] | | + + + + + Care Team Providers + +------+ + | Care Closed Circuit Screen Watcher Name | Role | Phone | + +------+ + PCP | Unavailable | + +------+ + Encounter Details +--------+ + + + + | Date | Type | Department | Care Team | Description | +--------+ + + + + | 10/31/ | Procedure - | Digestive Health | Record, Operation | Operative Report | | 1995 | | [place] at [facility] [address] | | | | | Transcribed | [place] [address] | | | | | | Mailcode: Center | | | | | | for Health and | | | | | | Healing, [address] | | | | | | [place], [place] | | | | | | [address] | | | | | | [phone] | | | +--------+ + + + [...] | + + | 10/31/1995 12:00 AM [facility] | | [facility] | | [address], [place] [address] | | [facility] | | | | OPERATION RECORD | | | | Med Rec No.: [id number] Date: 10/31/95 | | | | Name: Una Hong | | | | | | ATTENDING SURGEON: Hieu Robert M.D. | | Professor and Manufacturing Test Engineer, | | Obstetrics and Gynecology | | | | BAGGAGEMASTER(S): Gabriela Juarez M.D. | | Resident, Obstetrics [...] | | encountered. Hemostasis was obtained using bjqasc-zj-[id number] stitches. When | | the cystocele had [...] ligature | | carrier, two stitches of [place]-Nicholas suture were placed through the coccygeus | [...] Johnson M.D. | | Resident, Professor and Manufacturing Test Engineer, | | Obstetrics & Gynecology Obstetrics and Gynecology | | | | MILTON/nancy | | | | A | | | | cc: | | | | | | | | YIN VEGA MD | | [address] [facility] [address] | | [place] [address] | | | | | | | | MIKEY VAZQUEZ MD | | [address] | | [place] [address] | | | + + documented in this encounter Visit Diagnoses Not on filedocumented in this encounter"
--- OUTSIDE RECORDS SUMMARY | ~2019-09-10 | XMS | Encounter Summary ---
Demographics + + + | Address | [address] | | | [place] [address] | + + + | Home Phone | | + + + | Preferred Language | Unknown | + + + | Marital Status | | + + + | Baptism Affiliation | Unknown | + + + | Race | Unknown | + + + | Ethnic Group | Unknown | + + + Author + + + | Author | [facility] | | | and [place] | + + + | Organization | [facility] | | | and [place] | [...] Team Providers + +------+ + | Care Homicide Investigator Name | Role | Phone | + +------+ + | Ramon Richardson MD | PCP | | + +------+ + Encounter Details +--------+ + + + + | Date | Type | Department | Care Team | Description | +--------+ + + + + | 09/27/ | Abstract | [facility] | Josey Dunbar, | | | 2014 | | PULMONARY [address] | Associate Chemist | | | | | [place], | | | | | | [place] [address] | | | | | | [phone] | | | +--------+ + + + [...]
--- OUTSIDE RECORDS SUMMARY | ~2019-09-10 | XMS | Clinical Summary ---
Demographics + + + | Address | [address] | | | [place] [address] | + + + | Home Phone | | + + + | Preferred Language | Unknown | + + + | Marital Status | | + + + | Faith Affiliation | MET | + + + [...] [place], [place] | | | | | [address] | | + + + + + Care Team Providers + +------+ + | Care Director Of Scientific Research Name | Role | Phone | + +------+ + PCP | Unavailable | + +------+ + Source Comments [facility] is fully live on both [facility] and [facility] Allergies No Known Allergies Medications Not [...]
--- OUTSIDE RECORDS SUMMARY | ~2019-09-10 | XMS | Encounter Summary ---
Demographics + + + | Address | [address] | | | [place] [address] | + + + | Home Phone | | + + + | Preferred Language | Unknown | + + + | Marital Status | | + + + | Pentecostalism Affiliation | MET | + + + | Race | White | + + + | Ethnic Group | Not or | + + + Author + + + | Author | [facility] | + + + | Organization | [facility] | + + + | Address | Unknown | + + + | Phone | Unavailable | + + + Support + + + + + | Name | Relationship | Address | Phone | + + + + + | Regulo Hong | ECON | [address] | | | | | [place], [place] | | | | | [address] | | + + + + + Care Team Providers + +------+ + | Care Dust Box Tender Name | Role | Phone | + +------+ + PCP | Unavailable | + +------+ + Encounter Details +--------+ + + + + | Date | Type | Department | Care Team | Description | +--------+ + + + + | 10/31/ | Procedure - | Digestive Health | Record, Operation | Operative Report | | 1995 | | [place] at [facility] [address] | | | | | Transcribed | [place] [address] | | | | | | Mailcode: Center | | | | | | for Health and | | | | | | Healing, [address] | | | | | | [place], [place] | | | | | | [address] | | | | | | [phone] | | | +--------+ + + + [...] | + + | 10/31/1995 12:00 AM [facility] | | [facility] | | [address], [place] [address] | | [facility] | | | | OPERATION RECORD | | | | Med Rec No.: [id number] Date: 10/31/95 | | | | Name: Una Hong | | | | | | ATTENDING SURGEON: Hieu Robert M.D. | | Professor and Retail Operations Manager, | | Obstetrics and Gynecology | | | | DIRECTOR INSURANCE(S): Gabriela Juarez M.D. | | Resident, Obstetrics [...] | | encountered. Hemostasis was obtained using fbosmc-ig-knhbh stitches. When | | the cystocele had [...] ligature | | carrier, two stitches of [place]-Nicholas suture were placed through the coccygeus | [...] Johnson M.D. | | Resident, Professor and Retail Operations Manager, | | Obstetrics & Gynecology Obstetrics and Gynecology | | | | MILTON/nancy | | | | A | | | | cc: | | | | | | | | YIN VEGA MD | | [address] [facility] [address] | | [place] [address] | | | | | | | | MIKEY VAZQUEZ MD | | [address] | | [place] [address] | | | + + documented in this encounter Visit Diagnoses Not on filedocumented in this encounter"
--- OUTSIDE RECORDS SUMMARY | ~2019-09-10 | XMS | Encounter Summary ---
Demographics + + + | Address | [address] | | | [place] [address] | + + + | Home Phone | | + + + | Preferred Language | Unknown | + + + | Marital Status | | + + + | Christianity Affiliation | Unknown | + + + | Race | Unknown | + + + | Ethnic Group | Unknown | + + + Author + + + | Author | [facility] | | | and [place] | + + + | Organization | [facility] | | | and [place] [...] Team Providers + +------+ + | Care Kennel Technician Name | Role | Phone | + [...] Bell MD | | | | | [place], | | | | | | [place] [address] | | | | | | [phone] | | | +--------+ + + + [...] her parents both smoked, also worked at [employer] | + + + + +---------+ + [...]
--- OUTSIDE RECORDS SUMMARY | ~2019-09-10 | XMS | Encounter Summary ---
Demographics + + + | Address | [address] | | | [place] [address] | + + + | Home Phone | | + + + | Preferred Language | Unknown | + + + | Marital Status | | + + + | Adventist Affiliation | Unknown | + + + | Race | Unknown | + + + | Ethnic Group | Unknown | + + + Author + + + | Author | [facility] | | | and Shunana | + + + | Organization | [facility] | | | and [...] Team Providers + +------+ + | Care Skein Drier Name | Role | Phone | + +------+ + | Rosaura Jaime | PCP | | | PA-C | | | + +------+ + Reason for Referral Diagnostic/Screening (Routine) +--------+--------+ + + + + | Status | Reason | Specialty | Diagnoses / | Referred By | Referred To | | | | | Procedures | Contact | Contact | +--------+--------+ + + + + | Closed | | Radiology | Diagnoses | Maninder | Roel Mri | | | | | Gait | Chon Menchaca MD | [address] | | | | | abnormality | [address] | [place], | | | | | 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 | [place], | [address] | | | | | thoracic | [place] [address] | Phone: | | | | | region | Phone: | [phone] | | | | | Weakness of | [phone] | Fax: | | | | | both lower | Fax: | [phone] | | | | | extremities | [phone] | | | | | | Chronic | | | | | | | bilateral | | | | | | | low back | | | | | | | pain without | | | | | | | sciatica | | | | | | | Urinary | | | | | | | incontinence | | | | | | | , | | | | | | | unspecified | | | | | | | type | | | | | | | Procedures | | | | | | | MRI Lumbar | | | | | | | Spine wo | | | | | | | Contrast | | | +--------+--------+ + + + + Diagnostic/Screening (Routine) +--------+--------+ + + + + | Status | Reason | Specialty | Diagnoses / | Referred By | Referred To | | | | | Procedures | Contact | Contact | +--------+--------+ + + + + | Closed | | Radiology | Diagnoses | Dickens, | [address] | | | | | Gait | Chon E A, MD | [address] | | | | | abnormality | [address] | [place], | | | | | 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[place] [address] | | | | | kyphosis of | [place], | Phone: | | | | | thoracic | [place] [address] | [phone] | | | | | region | Phone: | Fax: | | | | | Weakness of | [phone] | [phone] | | | | | both lower | Fax: | | | | | | extremities | [phone] | | | | | | Chronic | | | | | | | bilateral | | | | | | | low back | | | | | | | pain without | | | | | | | sciatica | | | | | | | Urinary | | | | | | | incontinence | | | | | | | , | | | | | | | unspecified | | | | | | | type NPH | | | | | | | (normal | | | | | | | pressure | | | | | | | hydrocephalu | | | | | | | s) (HCC) | | | | | | | Procedures | | | | | | | CT Head wo | | | | | | | Contrast | | | +--------+--------+ + + + + Reason for Visit + + + | Reason | Comments | + + + | Gait Problem | | + + + | Back Pain | | + + + Evaluate & Treat (Routine) +--------+--------+ + + + + | Status | Reason | Specialty | Diagnoses / | Referred By | Referred To | | | | | Procedures | Contact | Contact | +--------+--------+ + + + + | Closed | | Physical | Diagnoses | Freda, | Chon Dickens | | | | Medicine and | Abnormality | Ben Reyes, | Eric Menchaca MD [address] | | | | Rehabilitatio | of gait and | DO [address] | | | | n | mobility | [address] | [place], | | | | | | [place] | [place] [address] | | | | | | [address] | Phone: | | | | | | Phone: | [phone] | | | | | | [phone] | Fax: | | | | | | Fax: | [phone] | | | | | | [phone] | | +--------+--------+ + + + + Encounter Details +--------+---------+ + + + | Date | Type | Department | Care Team | Description | +--------+---------+ + + + | 08/22/ | Office | [facility] | Chon Dickens, | Gait abnormality | | 2018 | Visit | PHYSIATRY [address] | [address] | (Primary Dx); | | | | [address] [place], | [place], [place] | Postural kyphosis of | | | | [place] [address] | [address] | thoracic region; | | | | [phone] | | Weakness of both | | | | | | lower extremities; | | | | | | Chronic bilateral | | | | | | low back pain | | | | | | without sciatica; | | | | | | Urinary | | | | | | incontinence, | | | | | | unspecified type; | | | | | | Hyperreflexia; | | | | | | Impaired mobility | | | | | | and activities of | | | | | | daily living; NPH | | | | | | (normal pressure | | | | | | hydrocephalus) | +--------+---------+ + + + Social History [...] + + + | Oxygen Saturation | - | - | | + [...] in this encounter Patient Instructions Patient Instructions Sherron Serrano, [employer] Farmer - 08/22/2018 10:40 AM PSTX-rays have been requested. Please go to the x-ray department after your appointment to complete these x-rays. The results of your x-rays will be reviewed at your next appointment. If you r x-rays demonstrate any emergent results, the clinic will contact you. A MRI has been requested. Please complete the requested imaging. Within one week, you mik uld receive a call to schedule your MRI. If you have not heard from anyone within one week, please call the clinic. The results of your MRI will be reviewed at your next appointment. If your MRI demonstrates any emergent results, the clinic will contact you. A CT scan has been requested. Please complete the requested imaging. Within one week, you should receive a call to schedule your CT. If you have not heard from anyone within one we ek, please call the clinic. The results of your CT scan will be reviewed at your next appoi ntment. If your CT scan demonstrates any emergent results, the clinic will contact you. documented in this encounter Progress Notes Chon Dickens MD - 08/22/2018 10:40 AM PSTFormatting of this note might be different fro m the original. Chon Dickens MD [address] [facility], [address] [place] [address] FAX: PHYSICAL MEDICINE AND REHABILITATION H&P CHIEF COMPLAINT: Chief Complaint Patient presents with Gait Problem Back Pain HISTORY OF PRESENT ILLNESS: Una Hong s a 88 y.o. female being seen today at e request of Rosaura Lewis PA-C for the complaint of back pain and gait abnomality. She reports that the pain started without any inciting event The symptoms have been gradu ally worsening. Una Hong reports that pain interferes with walking. She reports that she can no t walk for more than 10 minutes. Una Hong reports that she ambulates with walker at home. She uses wheel chair when outside of the home. Una Hong reports balance impairment. Una Hong denies memory changes . Una Hong rates the pain as mild. The symptoms are intermittent. Una Hong describes the pain as sharp. Una Hong denies lower extremity pain. Una Hong denies spasticity in the bilateral lower extremities. The patient does not report numbness in the bilateral lo wer extremities. She does report weakness of the bilateral lower extremities. Una Hong does not report any change in bowel or bladder function or saddle anes thesia recently. Her symptoms improve with sitting. Her symptoms worsen with walking and laying down. Una Hong has tried PT and NSAIDS. Una Hong most recent course of aquatic therapy was completed this summer with no improvement in pain. 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 Osteoporosis Peptic ulcer disease Plantar wart Pneumonia Pulmonary nodule RLS (restless legs syndrome) Scarlet fever Scoliosis Systemic hypertension Unspecified abnormalities of gait and mobility Urine incontinence UTI (urinary tract infection) PAST SURGICAL HISTORY: Past Surgical History: Procedure Laterality Date ABSCESS DRAINAGE ON CALF 2002 BLADDER SUSPENSION 1996 CHOLECYSTECTOMY 1996 BARI AND BSO 1996 TOTAL HIP ARTHROPLASTY Left 1988 UPPER GASTROINTESTINAL ENDOSCOPY 1995 CURRENT MEDICATIONS: Current Outpatient Prescriptions Medication Sig Dispense Refill albuterol (PROAIR HFA) 90 mcg/puff inhaler Inhale 2 puffs into the lungs every 6 hours as needed for Wheezing or Shortness of Breath. 1 Inhaler 5 Calcium Carbonate (CALCIUM 600 PO) Take 600 mg by mouth Daily. Cholecalciferol (VITAMIN D-3) 2000 units CAPS Take by mouth Daily. diclofenac (VOLTAREN) 50 mg EC tablet Take 50 mg by mouth 2 times daily. Docosahexaenoic Acid (DHA OMEGA 3) 100 MG CAPS Take by mouth. DULoxetine (CYMBALTA) [address] capsule Take 60 mg by mouth Daily. gabapentin (NEURONTIN) 300 mg capsule Take 300 mg by mouth 3 times daily. GLUCOSAMINE-CHONDROITIN PO Take by mouth. HYDROcodone-acetaminophen (NORCO) 5-325 mg per tablet Take 1 tablet by mouth every 6 ho urs as needed for Pain. levothyroxine (SYNTHROID) 150 mcg tablet Take 150 mcg by mouth every morning. losartan (COZAAR) 100 MG tablet Take 100 mg by mouth Daily. Misc Natural Products (RHNAMU-AJKQPIBNX-LZR COMPLEX) TABS Take by mouth Daily. Multiple Vitamins-Minerals (MULTIVITAMIN PO) Take by mouth Daily. NITROFURANTOIN MACROCRYSTAL PO Take by mouth Daily. omeprazole (PRILOSEC) 20 mg capsule Take 20 mg by mouth every morning (before breakfast ). pramipexole (MIRAPEX) 0.25 mg tablet TAKE ONE TABLET BY MOUTH TWICE A DAY 180 tablet 0 Spacer/Aero Chamber Mouthpiece MISC Use with inhaler as directed. 1 each 1 traMADol (ULTRAM) 50 mg tablet Take 100 mg by mouth 4 times daily. umeclidinium-vilanterol (ANORO ELLIPTA) 62.5-25 mcg/puff inhaler Inhale 1 puff into the lungs. No current facility-administered medications for this visit. ALLERGIES: Allergies Allergen Reactions Naproxen Other (See Comments) Reaction not specified in outside medical records Lisinopril Other (See Comments) Cough SOCIAL HISTORY: The patient reports that she is a non-smoker but has been exposed to tobacco smoke. She garcia s never used smokeless tobacco. She reports that she does not drink alcohol or use drugs. FAMILY HISTORY: Family History Problem Relation Age of Onset COPD Father Asthma Father Allergies Father Hypertension Father Tobacco Use Father Asthma Sister Hypertension Mother Stroke Mother REVIEW OF SYSTEMS: ROS GENERALLY: No fever,+ night sweats, no anemia, no fatigue, no recent profound weight camara ges. EYES: No eye problems, no use of corrective lenses, no eye injury, no double vision, no bl indness. EARS, NOSE, AND THROAT: No changes in taste or smell, + hearing difficulty, no ringing in the ears, no ear drainage, no dizziness, no voice changes, + difficulty swallowing, no signi ficant snoring, no sleep apnea, no sinus problems, + major dental work. NEUROLOGICALLY:The patient has no numbness/pain of arms, no numbness/pain of legs, no awake with numbness/pain, +weakness, no muscle aching, + coordination difficulty,+ change in walk , no head injury, no neck injury, no back injury, + pain in neck, + pain in back, no stroke, no fainting spells, no loss of consciousness, no tremor/shaking, no seizures, no headaches, no migraine, no memory loss, no speech difficulty, no confusion and no numbness of face. PSYCHIATRIC: No depression, no sleep disorders, no anxiety, no bipolar disorder, no psycho tic episodes. CARDIOVASCULAR: No heart attacks, no heart murmur, no heart fluttering, no chest pain, no ankle swelling. LUNG DISEASE: No shortness of breath, no cough, no tuberculosis, no bloody cough, no asth ma, +emphysema/COPD. GASTROINTESTINAL: No bowel disease, no nausea or vomiting, no rectal bleeding, no constipa tion, no stool incontinence, no liver disease, no gallbladder disease, no abdominal pain, no ulcers. KIDNEY DISEASE: No urinary frequency, no painful or difficult urination, + incontinence. ENDOCRINE: No diabetes, + thyroid disease, + osteopenia or osteoporosis, no breast drainag e. SKIN: No breast lumps, no skin changes, no rashes, no itches. HEMATOLOGIC/LYMPHATIC: No enlarged lymph nodes, no easy or unusual bleeding, no personal h istory of cancer. RHEUMATOLOGIC: + joint arthritis, no rheumatoid arthritis. PHYSICAL EXAMINATION: Blood pressure 115/64, pulse 77, height 1.626 m (5' 4"), weight 61.2 kg (135 lb), not curre ntly . Body mass index is 23.17 kg/m. GENERAL: She does not appear uncomfortable when seated. HEENT: HEAD/FACE: EYES: Normocephalic and atraumatic. There are no areas of recent trauma. Normal sclerae without icterus. SKIN There are not scars in the lumbar region. CHEST: The patient is in no acute respiratory distress with unlabored respirations. HEART: There is not lower extremity edema. ABDOMEN: The patient is not overweight. NEUROLOGIC: The patient is awake, alert, and oriented to time, place, person. She follows simple and complex commands. Her speech is fluent. She comprehends speech well. She has no apparent deficits with short or longterm memory. She has appropriate fund of knowledge Cranial nerves appear grossly intact. MOTOR EXAM: (5 IS NORMAL) * Indicates pain limited MUSCLE/ MOVEMENT: RIGHT LEFT Hip Flexion 4 3 Hip Extension 5 5 Knee Flexion 4 4 Knee Extension 5 4 Extensor Hallicus Longus 5 5 Ankle Dorsiflexion 4 5 Plantarflexion 5 5 REFLEX: RIGHT LEFT PATELLAR 4+ 4+ ACHILLES 4+ 4+ MUSCULOSKELETAL Crepitis within left knee Atrophy of intrinsic muscles of the hands Werner's test negative bilaterally Mild ataxia with finger to nose test bilaterally RADIOGRAPHIC REVIEW: No new imaging is available for review. IMPRESSION: 1. Gait abnormality 2. Postural kyphosis of thoracic region 3. Weakness of both lower extremities 4. Chronic bilateral low back pain without sciatica 5. Urinary incontinence, unspecified type 6. Hyperreflexia 7. Impaired mobility and activities of daily living PLAN: 1. Una Hong presents to clinic today for the treatment of gait abnormality and back pain. Differential diagnosis includes but is not limited to: normal pressure hydrocepha noni, parkinson's disease, cervical spinal stenosis, thoracic spinal stenosis, lumbar spinal stenosis and lumbar radiculopathy. There is gait abnormality and significant lower extremity weakness. There is a history of urinary incontinence. Today we reviewed treatment options for low back pain include physical therapy, neuropathic pain medication, lumbar steroid inj ections and last resort surgery. Treatment for hydrocephalus include surgical treatment. 2. Una Hong has completed physical therapy in the past with no improvement in pain. Una Hong would significantly benefit from subacute therapy in hopes of reg aining strength to maintain functions such as walking and standing. Upon exam there is signi ficant weakness in bilateral lower extremities. Today we emphasized the importance of maint aining strength through daily exercise. Query significant lumbar spondylosis contributing to lower extremity weakness. Physical therapy was offered today for the treatment of back pain, gait abnormality and low er extremity weakness. Una Hong declines formal physical therapy. Una Marrufo vivian reports that she would like to work on at home exercises and strengthening before con sidering repeat physical therapy. 3. Neuropathic pain medicaitons were discussed today. No medicaiton changes were made today . Una Hong is currently taking Tramadol, Cymbalta, Gabapentin and Hydrocodone. Blaine Hong has a significant fall risk due to gait instability and lower extremity weakness. Medications such as Gabapentin, Hydrocodone and Tramadol may contribute to fall ri sk. 4. Surgical intervention was discussed today with Una Hong. We discussed that s urgical treatment is usually considered last resort. We discussed that surgical treatment is recommended if weakness is affecting function. We discussed that surgical treatment is recommended if there are changes to bowel/bladder function. We discussed that surgical danielle atment may be considered if there is progressive weakness. We discussed that surgical dustin tment may be helpful for radicular symptoms, but back pain may persist after surgical treatm ent. Surgery may not be a beneficial consideration due to poor health and age. 5. Based on physical exam there is significant lower extremity weakness and lower extremit y hyperreflexia. There is history of urinary incontinence. Una Hong is persisti ng for more than 3 months. Query underlying lumbar spinal stenosis or neural foraminal narro wing contributing to lower extremity weakness. Una Hong will have lumbar xray to evaluate for lumbar spondylosis or instability that may be contributing to lower extremity weakness. In addition Una Hong will have lumbar MRI to evaluate for lumbar spinal stenosi s or neural foraminal narrowing that may be contributing to symptoms. There is history of ur inary incontinence. Imaging may help from a diagnostic stand point to evaluate origin of low er extremity weakness. Una Hong is unable to maintain strength to stand without assistance. 6. Una Hong will have head CT to evaluate for hydrocephalus that may be contrib uting to gait abnormality. Una Hong has history of urinary incontinence. She den ies changes in memory. Today we reviewed pathology of hydrocephaly and its contributing fact ors to gait, bladder control and memory. 7. Una Hong should return to clinic as scheduled to review imaging. Future cons iderations include subacute physical therapy, assisted walking and ambulation evaluation and lumbar steroid injections. May consider neurosurgery consult pending head CT. Una Hong has a complex presentation. She has profound lower extremity weakness . She is loosing her ability to stand and walk. She does limited walking and standing at t his time. She presents to the clinic in a wheel chair. She has incontinence. She has hype rreflexia. She has gait instability. She may have upper motor neuron pathology; such as ce rvical or thoracic spinal stenosis. She may have NPH, but she maintains intact memory and c ognition. She has profound weakness in the lower extremities. She has severe deformity of back posture. She likely has superimposed lumbar spinal stenosis. She has tried and failed conservative measures. I would like her to return to PT with the goal of maintaining her a bility to walk. We discussed the importance of daily activity. We discussed the goals of P M&R is to maintain her function, if possible and also determine etiology of her symptoms and if it is treatable. She may have a surgical condition affecting her spine. Unfortunately because of her multiple medical co-morbidities, she may not be a surgical candidate. She garcia s severe arthritis in both knees. She reports that she was not offered knee replacement bec ause of her overall health problems. Once we have determined origin of symptoms we will further discuss treatment options beyond continued PT. We may consider neurology consult if origin of symptoms cannot be establishe d with brain CT and lumbar MRI. I suspect she has both lumbar spinal stenosis and intracran ial pathology. Thank you for allowing me to be involved in the care of your patient. If you have any ques tions regarding the care of your patient please don't hesitate to call. Approximately 60 minutes was spent face to face with Una Hong, over half of [facility] ch was spent formulating and discussing their medical treatment plan. I, Chon Dickens MD personally performed the services described in this documentation, as scribed by in my presence, ZOEY Martinez and are both accurate and complete. Chon Dickens MD - 08/22/2018 documented in this en counter Plan of Treatment + +---------+--------+ + + | Name | Type | Priori | Associated Diagnoses | Order Schedule | | | | ty | | | + +---------+--------+ + + | CT Head wo Contrast | Imaging | Routin | Gait abnormality | Expected: | | | | e | Postural kyphosis of | 08/22/2018, Expires: | | | | | thoracic region | 08/22/2019 | | | | | Weakness of both | | | | | | lower extremities | | | | | | Chronic bilateral | | | | | | low back pain | | | | | | without sciatica | | | | | | Urinary | | | | | | incontinence, | | | | | | unspecified type | | | | | | NPH (normal pressure | | | | | | hydrocephalus) | | + +---------+--------+ + + | XR Lumbar Spine 4 + | Imaging | Routin | Gait abnormality | Expected: | | Vw | | e | Postural kyphosis of | 08/22/2018, Expires: | | | | | thoracic region | 08/22/2019 | | | | | Weakness of both | | | | | | lower extremities | | | | | | Chronic bilateral | | | | | | low back pain | | | | | | without sciatica | | | | | | Urinary | | | | | | incontinence, | | | | | | unspecified type | | + +---------+--------+ + + | MRI Lumbar Spine wo | Imaging | Routin | Gait abnormality | Expected: | | Contrast | | e | Postural kyphosis of | 08/22/2018, Expires: | | | | | thoracic region | 08/22/2019 | | | | | Weakness of both | | | | | | lower extremities | | | | | | Chronic bilateral | | | | | | low back pain | | | | | | without sciatica | | | | | | Urinary | | | | | | incontinence, | | | | | | unspecified type | | + +---------+--------+ + + documented as of this encounter Visit Diagnoses + + | Diagnosis | + + | Gait abnormality - Primary Abnormality of gait | + + | 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
--- OUTSIDE RECORDS SUMMARY | ~2019-09-10 | XMS | Encounter Summary ---
Demographics + + + | Address | [address] | | | [place] [address] | + + + | Home Phone | | + + + | Preferred Language | Unknown | + + + | Marital Status | | + + + | Spiritism Affiliation | MET | + + + | Race | White | + + + | Ethnic Group | Not or | + + + Author + + + | Author | [facility] | + + + | Organization | [facility] | + + + | Address | Unknown | + + + | Phone | Unavailable | + + + Support + + + + + | Name | Relationship | Address | Phone | + + + + + | Regulo Hong | ECON | [address] | | | | | [place], [place] | | | | | [address] | | + + + + + Care Team Providers + +------+ + | Care Family Practice Medical Doctor Name | Role | Phone | + +------+ + PCP | Unavailable | + +------+ + Encounter Details +--------+ + + + + | Date | Type | Department | Care Team | Description | +--------+ + + + + | 05/30/ | Office | General Internal | Note, Outpatient | Progress Note | | 1995 | Visit-Trans | Medicine [address] | Clinic | | | | [address] | [address] | | | | | | Mailcode: [id number] | | | | | | Outpatient Clinic | | | | | | [place] | | | | | | [place], [place] | | | | | | [address] | | | | | | [phone] | | | +--------+ + + + [...] as of this encounter Progress Notes Interface, Direct Support Professional Home Health In - 12/28/2006 3:09 AM PDT CLINIC DATE: 05/30/96 [facility]: Ms. Hong returns to the [facility] seven months after surgery which included anterior [...] surgery. PLAN: She will be seeing her analytical lab technician, Dr. Richardson in [place] for ongoing medical care and she was encouraged to increase her level of activity and particularly to do pelvic floor exercises. She returns to [place] on a regular basis as her daughter lives in this area and she will return for further check one year from now. Hieu Robert M.D. Professor and Manager Community Outreach, Obstetrics and Gynecology DEON/moon documented in this encounter Plan of Treatment Not on filedocumented as of this encounter Visit Diagnoses Not on filedocumented in this encounter"
--- OUTSIDE RECORDS SUMMARY | ~2019-09-10 | XMS | Encounter Summary ---
Demographics + + + | Address | [address] | | | [place] [address] | + + + | Home Phone | | + + + | Preferred Language | Unknown | + + + | Marital Status | | + + + | Tenriism Affiliation | MET | + + + | Race | White | + + + | Ethnic Group | Not or | + + + Author + + + | Author | [facility] | + + + | Organization | [facility] | + + + | Address | Unknown | + + + | Phone | Unavailable | + + + Support + + + + + | Name | Relationship | Address | Phone | + + + + + | Regulo Hong | ECON | [address] | | | | | [place], [place] | | | | | [address] | | + + + + + Care Team Providers + +------+ + | Care Team Cdl Driver Name | Role | Phone | + +------+ + PCP | Unavailable | + +------+ + Encounter Details +--------+ + + + + | Date | Type | Department | Care Team | Description | +--------+ + + + + | 11/01/ | Procedure - | Digestive Health | Record, Operation | Operative Report | | 1995 | | [facility] | | | | | Transcribed | [address] | | | | | | Mailcode: Center | | | | | | for Health and | | | | | | Healing, [address] | | | | | | [place], [place] | | | | | | [address] | | | | | | [phone] | | | +--------+ + + + [...] | + + | 11/01/1995 12:00 AM [facility] | | [facility] | | [address], [place] [address] | | [facility] | | | | OPERATION RECORD | | | | Med Rec No.: [id number] Date: 11/01/95 | | | | Name: Una Hong | | | | | | ATTENDING SURGEON: Hieu Robert M.D. | | Professor and Dental Office Receptionist, | | Obstetrics and Gynecology | | | | SCRUBBER MACHINE TENDER(S): Haley Lucas M.D. | | Resident, Obstetrics [...] | Resident, Obstetrics & Gynecology Professor and Dental Office Receptionist, | | Obstetrics and Gynecology | | | | MMFranki/nancy | | | | P | | | | cc: | | | | | | | | YIN VEGA MD | | [address] [facility] [address] | | [place] [address] | | | | | | | | MIKEY VAZQUEZ MD | | [address] | | [place] [address] | | | + + documented in this encounter Visit Diagnoses Not on filedocumented in this encounter"
--- OUTSIDE RECORDS SUMMARY | ~2019-09-10 | XMS | Encounter Summary ---
Demographics + + + | Address | [address] | | | [place] [address] | + + + | Home Phone | | + + + | Preferred Language | Unknown | + + + | Marital Status | | + + + | Episcopal Affiliation | MET | + + + [...] [place], [place] | | | | | [address] | | + + + + + Care Team Providers + +------+ + | Care Medicare Coordinator Name | Role | Phone | + +------+ + PCP | Unavailable | + +------+ + Encounter Details +--------+ + + + + | Date | Type | Department | Care Team | Description | +--------+ + + + + | 11/01/ | Results | | Other, Faculty | | | 1995 | Only | | [phone] | | +--------+ + + + + [...] | | | | | | white. Ear Muff Assembler | | | | | | sections [...] identified. | | | | | | Ear Muff Assembler sections | | | | | | [...] + + + + | [facility] | [address] | [place] [address] | | | PATHOLOGY | [address] | | | + + + + + documented in this encounter Visit Diagnoses Not on filedocumented in this encounter"
--- OUTSIDE RECORDS SUMMARY | ~2019-09-10 | XMS | Encounter Summary ---
Demographics + + + | Address | [address] | | | [place] [address] | + + + | Home Phone | | + + + | Preferred Language | Unknown | + + + | Marital Status | | + + + | Orthodox Affiliation | Unknown | + + + | Race | Unknown | + + + | Ethnic Group | Unknown | + + + Author + + + | Author | [facility] | | | and Shunana | + + + | Organization | [facility] | | | and [place] [...] Team Providers + +------+ + | Care Travel Ticketing Reviewer Name | Role | Phone | + [...] Medication Refill | | 2017 | | [facility] | E, DO [address] | | | | | MEDICAL CLIN[address] | [place], [place] | | | | | [address] [place], | [address] | | | | | [place] [address] | [phone] | | | | | [phone] | | | +--------+--------+ + + + [...]
--- OUTSIDE RECORDS SUMMARY | ~2019-09-10 | XMS | Clinical Summary ---
Demographics + + + | Address | [address] | | | [place] [address] | + + + | Home Phone | | + + + | Preferred Language | Unknown | + + + | Marital Status | | + + + | Islam Affiliation | Unknown | + + + | Race | Unknown | + + + | Ethnic Group | Unknown | + + + Author + + + | Author | [facility] (Historical as of | | | 05-24-19) | + + + | Organization | [facility] (Historical as of | | | 05-24-19) [...] Providers + +------+ + | Care Certified Medicine Aide Name | Role | Phone | + [...] | | + + + +---------+------+------+-------+ | [place]-3 Fatty | Take by mouth. | | [...] | | | | | | | ([facility]) | | | | | | | [...] | | | | | | | ([facility]) | | | | | | | [...] | | | | | | | ([facility]) | | | | | | | [...] +------+-------+ + | MEDICARE | MEDICA | [id number] | | | [address] | | | RE | | | | [place] [address] | | | IP-OP | | | | | + +--------+ +------+-------+ + | UNITED HEALTHCARE | UNITED | [id number] | | | | | | | [...] | 1930 | [phone] | [place] [address] | | | [place] | | | [phone] | | + +--------+ +--------+ + +
--- OUTSIDE RECORDS SUMMARY | ~2019-09-10 | XMS | Clinical Summary ---
Demographics + + + | Address | [address] | | | [place] [address] | + + + | Home Phone | | + + + | Preferred Language | Unknown | + + + | Marital Status | | + + + | Evangelical Affiliation | Unknown | + + + | Race | Unknown | + + + | Ethnic Group | Unknown | + + + Author + + + | Author | [facility] | | | and Shunana | + + + | Organization | [facility] | | | and [...] Team Providers + +------+ + | Care Client Services Director Name | Role | Phone | [...] | | | | e | | [id number] | | | | | | | [...] +--------+ +---------+--------+ | MEDICARE | MEDICA | [id number] | 01/06/19 | [phone] | | Medica | | | RE | | 95-Pre | 5 | | re | | | PART A | | sent | | | | | | AND B | | | | | | + +--------+ +--------+ +---------+--------+ | AARP | AARP | [id number] | 10/08/19 | [phone] | | Indemn [...] | | al/Fam | | 1930 | [phone] | [place] [address] | | | [place] | | | 7 (Home) | | + +--------+ +--------+ + + Advance Directives + + + + + | Type | Date Recorded | Patient | Explanation | | | | Millinery Designer | | + + + + + | Power of | | | | | Laborer Livestock | | | | + + + + + | Advance | 10/20/2014 1:04 | | | | Directive | PM | | | + + + + +
--- OUTSIDE RECORDS SUMMARY | ~2019-09-10 | XMS | Encounter Summary ---
Demographics + + + | Address | [address] | | | [place] [address] | + + + | Home Phone [...] + + | Author | [facility] | | | and Shunana | + + + | Organization | [facility] [...] Team Providers + +------+ + | Care Sky Line Yarder Name | Role | Phone | + [...] | | | | | Chronic | [address] | [address]VE | | | | | obstructive | [place], | [place], [place] | | | | | pulmonary | [place] [address] | [address] | | | | | disease, | | Phone: | | | | | unspecified | | [phone] | | | | | COPD type | | Fax: | | | | | ([facility]) | | [phone] | | | | | Procedures | | | | | | | [place] PHYS | | | | | | | THERAPY | | | | | | | EVALUATION | | | | | | | [place] | | | | | | | [...] | 12/27/ | [facility] [place] | [place], | Chronic obstructive | | 2016 | Visit | PULMONARY [address] | Corrie Bell MD | pulmonary disease, | | | | [place], | | unspecified COPD | | | | [place] [address] | | type (HCC); | | | | [phone] | | Gastroesophageal | | | | [...] parents both smoked, also worked at a [employer] | + + + + +---------+ + [...] w arm water therapy for at the [facility]. I would ask the therapist if they can do a wheelchair evaluation through [facility] and have them let us know, or [...] rescue inhaler as her current [facility] in [facility] is quite old. 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 Social History Main Topics Smoking status: Never Smoker Smokeless tobacco: Never Used Comment: her parents both smoked, also worked at a [employer] Alcohol Use: No Drug Use: No Sexual Activity: Not on file Other Topics Concern None Social History Narrative Lives: in [place] With: her Grew up: in [place] Has previously lived in: [place], [place] Exposure to toxic chemicals: has been [...] her to warm water therapy at the [facility], I also suggested a whee lchair evaluation so she can get in and out the chair more easily without a hand injury (rec ently sustained). They will inquire if this can be done there, and call. Ambulatory referral to Physical Therapy Plan 1.Continue Spiriva once daily. 2.Referred for warm water therapy at the [facility]. 3.Ask if wheelchair evaluation can be done at the [facility], and if not we can order here. [...] made to ensure accuracy; however, inadvertent computerized buckle wire inserter errors may be pre sent. documented in [...]
--- OUTSIDE RECORDS SUMMARY | ~2019-09-10 | XMS | Encounter Summary ---
Demographics + + + | Address | [address] | | | [place] [address] | + + + | Home Phone | | + + + | Preferred Language | Unknown | + + + | Marital Status | | + + + | Temple Affiliation | Unknown | + + + | Race | Unknown | + + + | Ethnic Group | Unknown | + + + Author + + + | Author | [facility] | | | and Shunana | + + + | Organization | [facility] | | | and [...] Team Providers + +------+ + | Care Lab Engineer Name | Role | Phone | [...] Medication Refill | | 2017 | | [facility] | E, DO [address] | | | | | MEDICAL CLIN[address] | [place], [place] | | | | | [address] [place], | [address] | | | | | [place] [address] | [phone] | | | | | [phone] | | | +--------+--------+ + + + [...]
--- OUTSIDE RECORDS SUMMARY | ~2019-09-10 | XMS | Clinical Summary ---
Demographics + + + | Address | [address] | | | [place] [address] | + + + | Home Phone | | + + + | Preferred Language | Unknown | + + + | Marital Status | | + + + | Quaker Affiliation | Unknown | + + + | Race | Unknown | + + + | Ethnic Group | Unknown | + + + Author + + + | Author | [facility] (Historical as of | | | 05-24-19) | + + + | Organization | [facility] (Historical as of | | | 05-24-19) [...] Team Providers + +------+ + | Care Canal Tender Name | Role | Phone | [...] | | + + + +---------+------+------+-------+ | [place]-3 Fatty | Take by mouth. | | [...] | | | | | | | ([facility]) | | | | | | | [...] | | | | | | | ([facility]) | | | | | | | [...] | | | | | | | ([facility]) | | | | | | | [...] +------+-------+ + | MEDICARE | MEDICA | [id number] | | | [address] | | | RE | | | | [place] [address] | | | IP-OP | | | | | + +--------+ +------+-------+ + | UNITED HEALTHCARE | UNITED | [id number] | | | | | | | [...] | 1930 | [phone] | [place] [address] | | | [place] | | | [address] | | + +--------+ +--------+ + +
--- OUTSIDE RECORDS SUMMARY | ~2019-09-10 | XMS | Encounter Summary ---
Demographics + + + | Address | [address] | | | [place] [address] | + + + | Home Phone | | + + + | Preferred Language | Unknown | + + + | Marital Status | | + + + | Religion Affiliation | Unknown | + + + | Race | Unknown | + + + | Ethnic Group | Unknown | + + + Author + + + | Author | [facility] | | | and Shunana | + + + | Organization | [facility] | | | and [place] [...] Team Providers + +------+ + | Care Qa Reviewer Name | Role | Phone | [...] | PHYSIATRY [address] | [address] | | | | | [place], | [place] | | | | | [place] [address] | [id number] | | | | | [phone] | | | +--------+ + + + [...] her parents both smoked, also worked at [employer] | + + + + +---------+ + [...]
--- OUTSIDE RECORDS SUMMARY | ~2019-09-10 | XMS | Encounter Summary ---
Demographics + + + | Address | [address] | | | [place] [address] | + + + | Home Phone | | + + + | Preferred Language | Unknown | + + + | Marital Status | | + + + | Denominational Affiliation | MET | + + + [...] [place], [place] | | | | | [address] | | + + + + + Care Team Providers + +------+ + | Care Breaker Hand Name | Role | Phone | + +------+ + PCP | Unavailable | + +------+ + Encounter Details +--------+ + + + + | Date | Type | Department | Care Team | Description | +--------+ + + + + | 11/01/ | Results | | Other, Faculty | | | 1995 | Only | | [phone] | | +--------+ + + + + [...] | | | | | | white. Financial Aid | | | | | | sections [...] identified. | | | | | | Financial Aid sections | | | | | | [...] + + + + + | [facility] | [address] | [place] [address] | | | PATHOLOGY | [address] | | | + + + + + documented in this encounter Visit Diagnoses Not on filedocumented in this encounter"
--- OUTSIDE RECORDS SUMMARY | ~2019-09-10 | XMS | Encounter Summary ---
Demographics + + + | Address | [address] | | | [place] [address] | + + + | Home Phone | | + + + | Preferred Language | Unknown | + + + | Marital Status | | + + + | Yazidism Affiliation | Unknown | + + + | Race | Unknown | + + + | Ethnic Group | Unknown | + + + Author + + + | Author | [facility] | | | and [place]unana | + + + | Organization | [facility] | | | and [place] [...] Team Providers + +------+ + | Care Visitor Services Coordinator Name | Role | Phone | + +------+ + | Ramon Richardson MD | PCP | | + +------+ + Reason for Visit +---------+ + | Reason | Comments | +---------+ + | Results | exertional oximetry | +---------+ + Encounter Details +--------+ + + + + | Date | Type | Department | Care Team | Description | +--------+ + + + + | 11/03/ | Telephone | [facility] [place] | [place], | Results (exertional | | 2014 | | PULMONARY [address] | Corrie Bell MD | oximetry) | | | | [place], | | | | | | [place] [address] | | | | | | [phone] | | | +--------+ + + + + Social History + +-------+ +--------+------+ | Tobacco Use | Types | Packs/Day | Years | Date | | | | | Used | | + +-------+ +--------+------+ | Never Smoker | | | | | + +-------+ +--------+------+ + + | Comments: her parents both smoked, also worked at [employer] | + + + + +---------+ + [...]
--- OUTSIDE RECORDS SUMMARY | ~2019-09-10 | XMS | Encounter Summary ---
Demographics + + + | Address | [address] | | | [place] [address] | + + + | Home Phone | | + + + | Preferred Language | Unknown | + + + | Marital Status | | + + + | Druze Affiliation | Unknown | + + + | Race | Unknown | + + + | Ethnic Group | Unknown | + + + Author + + + | Author | [facility] | | | and Shunana | + + + | Organization | [facility] | | | and [place] [...] Team Providers + +------+ + | Care Exercise Physiology Professor Name | Role | Phone | + [...] 2014 | | PULMONARY [address] | Matchbook Assembler | | | | | [place], | | | | | | [place] [address] | | | | | | [phone] | | | +--------+ + + + [...]
--- OUTSIDE RECORDS SUMMARY | ~2019-09-10 | XMS | Encounter Summary ---
Demographics + + + | Address | [address] | | | [place] [address] | + + + | Home Phone | | + + + | Preferred Language | Unknown | + + + | Marital Status | | + + + | Rastafari Affiliation | Unknown | + + + | Race | Unknown | + + + | Ethnic Group | Unknown | + + + Author + + + | Author | [facility] | | | and Shunana | + + + | Organization | [facility] | | | and [...] Team Providers + +------+ + | Care Cotton Cleaner Name | Role | Phone | + [...] Medication Refill | | 2017 | | [facility] | E, DO [address] | | | | | MEDICAL CLIN[address] | [place], [place] | | | | | [address] [place], | [address] | | | | | [place] [address] | [phone] | | | | | [phone] | | | +--------+--------+ + + + [...]
--- OUTSIDE RECORDS SUMMARY | ~2019-09-10 | XMS | Encounter Summary ---
Demographics + + + | Address | [address] | | | [place] [address] | + + + | Home Phone | | + + + | Preferred Language | Unknown | + + + | Marital Status | | + + + | Mormonism Affiliation | Unknown | + + + | Race | Unknown | + + + | Ethnic Group | Unknown | + + + Author + + + | Author | [facility] | | | and Shunana | + + + | Organization | [facility] | | | and [...] Team Providers + +------+ + | Care Pacs Administrator Name | Role | Phone | + [...] | | | | | obstruction, | [place] | [address] | | | | | not | [address] | [place], | | | | | elsewhere | [place], | [place] [address] | | | | | classified | [place] | | | | | | Procedures | [address] | | | | | | NEW PT | Phone: | | | | | | CONSULT | [phone] | | | | | | | Fax: | | | | | | | [phone] | | +--------+--------+ + + + + Encounter Details +--------+---------+ + + + | Date | Type | Department | Care Team | Description | +--------+---------+ + + + | 10/20/ | Office | [facility] | Perri, | COPD (chronic | | 2014 | Visit | PULMONARY [address] | Corrie Bell MD | obstructive | | | | [place], | | pulmonary disease) | | | | [place] [address] | | ([facility]) (Primary Dx); | | | | [phone] | | Aortic valve | | | [...] her parents both smoked, also worked at [email or web address] | + + + + +---------+ + [...] Do an overnight oxygen test through [facility] [employer]. Call the [employer] before yo u pick it up to make sure they have a box available. You will tack picker a box at the [employer]. Do the test on room air. Wear the finger probe through the night and then return the box for a download the next day. Do walking oxygen test at [facility]. Use a spacer with the Qvar [...] years as well. 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 omeprazole (PRILOSEC) 20 mg capsule Take [...] Home Medical. 5. Check ambulating oximetry at [facility]. 6. I recommended use of a [...] made to ensure accuracy; however, inadvertent computerized cross tie tram loader errors may be pre sent. documented in [...]
--- OUTSIDE RECORDS SUMMARY | ~2019-09-10 | XMS | Encounter Summary ---
Demographics + + + | Address | [address] | | | [place] [address] | + + + | Home Phone | | + + + | Preferred Language | Unknown | + + + | Marital Status | | + + + | Yazidi Affiliation | Unknown | + + + | Race | Unknown | + + + | Ethnic Group | Unknown | + + + Author + + + | Author | [facility] | | | and Shunana | + + + | Organization | [facility] | [...] Team Providers + +------+ + | Care Electronics Research Engineer Name | Role | Phone | + +------+ + PCP | Unavailable | + +------+ + Encounter Details +--------+ + + + + | Date | Type | Department | Care Team | Description | +--------+ + + + + | 10/21/ | Hospital | [facility] | James Munguia | | | 2007 | Encounter | MED CTR XRAY [address] | [address] | | | | | [place] | [place] [address] | | | | | [place] [address] | [place] [address] | | | | | [phone] | [phone] | | | | | | | [...]
--- OUTSIDE RECORDS SUMMARY | ~2019-09-10 | XMS | Encounter Summary ---
Demographics + + + | Address | [address] | | | [place] [address] | + + + | Home Phone | | + + + | Preferred Language | Unknown | + + + | Marital Status | | + + + | Christianity Affiliation | Unknown | + + + | Race | Unknown | + + + | Ethnic Group | Unknown | + + + Author + + + | Author | [facility] | | | and Shunana | + + + | Organization | [facility] | | | and [...] Team Providers + +------+ + | Care Sand Drier Name | Role | Phone | [...] Description | +--------+--------+ + + + | 10/25/ | Refill | [facility] [place] | [place], | Medication Refill | | 2016 | | [address]ULMONARY [address] | Corrie Bell MD | | | | | [place], | | | | | | [place] [address] | | | | | | [phone] | | | +--------+--------+ + + + [...]
--- OUTSIDE RECORDS SUMMARY | ~2019-09-10 | XMS | Encounter Summary ---
Demographics + + + | Address | [address] | | | [place] [address] | + + + | Home Phone | | + + + | Preferred Language | Unknown | + + + | Marital Status | | + + + | Presybeterian Affiliation | Unknown | + + + | Race | Unknown | + + + | Ethnic Group | Unknown | + + + Author + + + | Author | [facility] | | | and Shunana | + + + | Organization | [facility] | | | and [...] Team Providers + +------+ + | Care Hip Hop Dancer Name | Role | Phone | + [...] | | | | | obstruction, | [place] | [address] | | | | | not | [address] | [place], | | | | | elsewhere | [place], | [place] [address] | | | | | classified | [place] | | | | | | Procedures | [address] | | | | | | NEW PT | Phone: | | | | | | CONSULT | [phone] | | | | | | | Fax: | | | | | | | [phone] | | +--------+--------+ + + + + Encounter Details +--------+---------+ + + + | Date | Type | Department | Care Team | Description | +--------+---------+ + + + | 10/20/ | Office | [facility] | Perri, | COPD (chronic | | 2014 | Visit | [address]ULMONARY [address] | Corrie Bell MD | obstructive | | | | [place], | | pulmonary disease) | | | | [place] [address] | | ([facility]) (Primary Dx); | | | | [phone] | | Aortic valve | | | [...] her parents both smoked, also worked at [employer] | + + + + +---------+ + [...] Do an overnight oxygen test through [facility] [employer]. Call the [employer] before yo u pick it up to make sure they have a box available. You will medicinal plant picker a box at the [employer]. Do the test on room air. Wear the finger probe through the night and then return the box for a download the next day. Do walking oxygen test at [facility]. 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 Daily. omeprazole (PRILOSEC) 20 mg capsule Take [...] Home Medical. 5. Check ambulating oximetry at [facility]. 6. I recommended use of a spacer [...] made to ensure accuracy; however, inadvertent computerized global president errors may be pre sent. documented in [...]
--- OUTSIDE RECORDS SUMMARY | ~2019-09-10 | XMS | Encounter Summary ---
Demographics + + + | Address | [address] | | | [place] [address] | + + + | Home Phone | | + + + | Preferred Language | Unknown | + + + | Marital Status | | + + + | Zoroastrian Affiliation | Unknown | + + + | Race | Unknown | + + + | Ethnic Group | Unknown | + + + Author + + + | Author | [facility] | | | and Shunana | + + + | Organization | [facility] | [...] Team Providers + +------+ + | Care Human Projectile Name | Role | Phone | + +------+ + | Rosaura Jaime | PCP | | | PA-C | | | + +------+ + Encounter Details +--------+ + + + + | Date | Type | Department | Care Team | Description | +--------+ + + + + | 05/06/ | Orders Only | [facility] | Provider, | | | 2018 | | SYSTEM GENERIC OP | [address] | | | | | [address] | [place] | | | | | [address] [place], [place] | [place] [address] | | | | | [address] | | | | | | [phone] | | | +--------+ + + + [...]
--- OUTSIDE RECORDS SUMMARY | ~2019-09-10 | XMS | Encounter Summary ---
Demographics + + + | Address | [address] | | | [place] [address] | + + + | Home Phone | | + + + | Preferred Language | Unknown | + + + | Marital Status | | + + + | Rastafarian Affiliation | MET | + + + [...] [place], [place] | | | | | [address] | | + + + + + Care Team Providers + +------+ + | Care Planner Internship Name | Role | Phone | + [...] | | | | | | [facility] | | | | | | [place] [address] | | | | | | [phone] | | | +--------+ + + + [...] as of this encounter Discharge Summaries Interface, Hoisting Engine Operator In - 01/07/2007 7:57 AM PDT [address] [address] [facility] MEDICAL SUMMARY OF HOSPITALIZATION Med Rec No.: [id number] Admission Date: 10/31/95 Name: Una Hong Discharge Date: 11/06/95 STAFF PHYSICIAN: Hieu Robert M.D. Professor and Edge Finisher, Obstetrics and Gynecology PRINCIPAL FINAL DIAGNOSIS: 1. 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 SIGNIFICANT HISTORY: A Pap [...] and Gynecology Hieu Robert M.D. Professor and Edge Finisher, Obstetrics and Gynecology MILTON /armando P cc: YIN VEGA MD [address] [place] [address] [address] [place] [address] MIKEY VAZQUEZ MD [address] [place] [address] documented in this encounter Plan of Treatment Not on filedocumented as of this encounter Visit Diagnoses Not on filedocumented in this encounter"
--- OUTSIDE RECORDS SUMMARY | ~2019-09-10 | XMS | Encounter Summary ---
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
--- OUTSIDE RECORDS SUMMARY | ~2019-09-10 | XMS | Encounter Summary ---
Demographics + + + | Address | [address] | | | [place] [address] | + + + | Home Phone | | + + + | Preferred Language | Unknown | + + + | Marital Status | | + + + | Worship Affiliation | Unknown | + + + | Race | Unknown | + + + | Ethnic Group | Unknown | + + + Author + + + | Author | [facility] | | | and Shunana | + + + | Organization | [facility] | | | and [place] [...] Team Providers + +------+ + | Care Clay Preparation Supervisor Name | Role | Phone | [...] Refill | | 2017 | | [facility] | E, DO [address] | | | | | MEDICAL CLINIC [address] | [place], [place] | | | | | [address] [place], | [address] | | | | | [place] [address] | [phone] | | | | | [phone] | | | +--------+--------+ + + + [...]
--- OUTSIDE RECORDS SUMMARY | ~2019-09-10 | XMS | Encounter Summary ---
Demographics + + + | Address | [address] | | | [place] [address] | + + + | Home Phone | | + + + | Preferred Language | Unknown | + + + | Marital Status | | + + + | Anabaptism Affiliation | Unknown | + + + | Race | Unknown | + + + | Ethnic Group | Unknown | + + + Author + + + | Author | [facility] | | | and Shunana | + + + | Organization | [facility] | | | and [place] | [...] Team Providers + +------+ + | Care Cook Barbecue Name | Role | Phone | + [...] MD | oximetry) | | | | [place], | | | | | | [place] [address] | | | | | | [phone] | | | +--------+ + + + + Social History + +-------+ +--------+------+ | Tobacco Use | Types | Packs/Day | Years | Date | | | | | Used | | + +-------+ +--------+------+ | Never Smoker | | | | | + +-------+ +--------+------+ + + | Comments: her parents both smoked, also worked at [employer] | + + + + +---------+ + [...]
--- OUTSIDE RECORDS SUMMARY | ~2019-09-10 | XMS | Encounter Summary ---
Demographics + + + | Address | [address] | | | [place] [address] | + + + | Home Phone | | + + + | Preferred Language | Unknown | + + + | Marital Status | | + + + | Buddhist Affiliation | Unknown | + + + | Race | Unknown | + + + | Ethnic Group | Unknown | + + + Author + + + | Author | [facility] | | | and Shunana | + + + | Organization | [facility] | | | and [place] [...] Team Providers + +------+ + | Care Injury/Safety Hazard Assessment Name | Role | Phone | + [...] | 2017 | | [facility] | E, DO [address] | | | | | MEDICAL CLINIC [address] | [place], [place] | | | | | [address] [place], | [address] | | | | | [place] [address] | [phone] | | | | | [phone] | | | +--------+--------+ + + + [...]
--- OUTSIDE RECORDS SUMMARY | ~2019-09-10 | XMS | Encounter Summary ---
Demographics + + + | Address | [address] | | | [place] [address] | + + + | Home Phone | | + + + | Preferred Language | Unknown | + + + | Marital Status | | + + + | Nondenominational Affiliation | Unknown | + + + | Race | Unknown | + + + | Ethnic Group | Unknown | + + + Author + + + | Author | [facility] | | | and Shunana | + + + | Organization | [facility] | | | and [...] Team Providers + +------+ + | Care Lamp Shade Assembler Name | Role | Phone | + [...] Medication Refill | | 2017 | | [facility] | E, DO [address] | | | | | MEDICAL CLIN[address] | [place], [place] | | | | | [address] [place], | [address] | | | | | [place] [address] | [phone] | | | | | [phone] | | | +--------+--------+ + + + [...]
--- OUTSIDE RECORDS SUMMARY | ~2019-09-10 | XMS | Encounter Summary ---
Demographics + + + | Address | [address] | | | [place] [address] | + + + | Home Phone | | + + + | Preferred Language | Unknown | + + + | Marital Status | | + + + | Congregational Affiliation | MET | + + + | Race | White | + + + | Ethnic Group | Not or | + + + Author + + + | Author | [facility] | + + + | Organization | [facility] | + + + | Address | Unknown | + + + | Phone | Unavailable | + + + Support + + + + + | Name | Relationship | Address | Phone | + + + + + | Regulo Hong | ECON | [address] | | | | | [place], [place] | | | | | [address] | | + + + + + Care Team Providers + +------+ + | Care Street Light Servicer Name | Role | Phone | + +------+ + PCP | Unavailable | + +------+ + Encounter Details +--------+ + + + + | Date | Type | Department | Care Team | Description | +--------+ + + + + | 11/13/ | Transcribed | Allergy Clinic at | Dictation, Other | Transcribed | | 1995 | | [facility] [address] | | | | | | [address] | | | | | | Mailcode: [address] | | | | | | [place] | | | | | | [place], | | | | | | [place] [address] | | | | | | [phone] | | | +--------+ + + + [...] as of this encounter Progress Notes Interface, Immigration Lawyer In - 01/09/2007 6:36 AM PDT [address] [address] or Department of Obstetrics and Gynecology, L466 [facility] November 13, 1995 MIKEY VAZQUEZ MD [address] [place] [address] RE:Una Hong MR#:[id number] Dear Doctor Vazquez: I [...] She is going to stay in the [place] area with her daughter for one more week, before returning to [place]. I much appreciate the original referral of this patient. I am sorry that her posoperative course was stormy and complicated but she seems to be doing well now and I hope that her further progress will be uncomplicated. With thanks and best wishes, Hieu Robert M.D. Professor and Apparel Embroidery Digitizer, Obstetrics and Gynecology DEON/lexie P documented in this encounter Plan of Treatment Not on filedocumented as of this encounter Visit Diagnoses Not on filedocumented in this encounter"
--- OUTSIDE RECORDS SUMMARY | ~2019-09-10 | XMS | Encounter Summary ---
Demographics + + + | Address | [address] | | | [place] [address] | + + + | Home Phone [...] | Organization | [facility] | | | and [...] Team Providers + +------+ + | Care Bacteriologist Dairy Name | Role | Phone | + [...] Bell MD | | | | | [place], | | | | | | [place] [address] | | | | | | [phone] | | | +--------+--------+ + + + [...]
--- OUTSIDE RECORDS SUMMARY | ~2019-09-10 | XMS | Encounter Summary ---
Demographics + + + | Address | [address] | | | [place] [address] | + + + | Home Phone | | + + + | Preferred Language | Unknown | + + + | Marital Status | | + + + | Scientology Affiliation | MET | + + + | Race | White | + + + | Ethnic Group | Not or | + + + Author + + + | Author | [facility] | + + + | Organization | [facility] | + + + | Address | Unknown | + + + | Phone | Unavailable | + + + Support + + + + + | Name | Relationship | Address | Phone | + + + + + | Regulo Hong | ECON | [address] | | | | | [place], [place] | | | | | [address] | | + + + + + Care Team Providers + +------+ + | Care Lpta Name | Role | Phone | + +------+ + PCP | Unavailable | + +------+ + Encounter Details +--------+ + + + + | Date | Type | Department | Care Team | Description | +--------+ + + + + | 03/11/ | Office | General Internal | Note, Outpatient | Progress Note | | 1995 | Visit-Trans | Medicine [address] | Clinic | | | | [address] | [address] | | | | | | Mailcode: L475 | | | | | | Outpatient Clinic | | | | | | [place] | | | | | | [place], [place] | | | | | | [address] | | | | | | [phone] | | | +--------+ + + + [...] as of this encounter Progress Notes Interface, Photoengraving Retoucher In - 01/02/2007 3:07 AM PDT CLINIC DATE: 03/11/96 [facility] SUBJECTIVE: Ms. Hong returns to the [facility], having herself just returned from a trip to [place]. She reports that her energy levels continue [...] A letter is also written to her slitter and cutter operator in [place], Dr. Vega. Hieu Robert M.D. Professor and Conche Loader And Unloader, Obstetrics and Gynecology EPK:jerod C: 03/17/96 C2: 03/25/96 av cc: YIN VEGA MD INTERNAL MEDICINE [address] [place] [id number] documented in this encounter Plan of Treatment Not on filedocumented as of this encounter Visit Diagnoses Not on filedocumented in this encounter"
--- OUTSIDE RECORDS SUMMARY | ~2019-09-10 | XMS | Encounter Summary ---
Demographics + + + | Address | [address] | | | [place] [address] | + + + | Home Phone | | + + + | Preferred Language | Unknown | + + + | Marital Status | | + + + | Methodist Affiliation | Unknown | + + + | Race | Unknown | + + + | Ethnic Group | Unknown | + + + Author + + + | Author | [facility] | | | and Shunana | + + + | Organization | [facility] | | | and [place] [...] Team Providers + +------+ + | Care Cutlet Maker Pork Name | Role | Phone | + [...] Bell MD | | | | | [place], | | | | | | [place] [address] | | | | | | [phone] | | | +--------+ + + + [...] her parents both smoked, also worked at [employer] | + + + + +---------+ + [...]
--- OUTSIDE RECORDS SUMMARY | ~2019-09-10 | XMS | Encounter Summary ---
Demographics + + + | Address | [address] | | | [place] [address] | + + + | Home Phone | | + + + | Preferred Language | Unknown | + + + | Marital Status | | + + + | Lutheran Affiliation | MET | + + + | Race | White | + + + | Ethnic Group | Not or | + + + Author + + + | Author | [facility] | + + + | Organization | [facility] | + + + | Address | Unknown | + + + | Phone | Unavailable | + + + Support + + + + + | Name | Relationship | Address | Phone | + + + + + | Regulo Hong | ECON | [address] | | | | | [place], [place] | | | | | [address] | | + + + + + Care Team Providers + +------+ + | Care Dealer Accounts Investigator Name | Role | Phone | [...] [id number] | | | | | | [place], [place] | | | | | | [address] | | | | | | [phone] | | | +--------+ + + + [...] Re | | | | | | [address] | | | | + + + + + + + + | Specimen | + + | | + + + + + + + | Performing | Address | City/State/Zipcode | Phone Number | | Organization | | | | + + + + + | [facility] | [address] | [place] [address] | | | PATHOLOGY | [address] [...] Re | | | | | | [address] | | | | + + + + + + + + | Specimen | + + | | + + + + + + + | Performing | Address | City/State/Zipcode | Phone Number | | Organization | | | | + + + + + | [facility] | [address] | [place] [address] | | | PATHOLOGY | [address] [...] | + + + + + | [facility] | [address] | [place] [address] | | | PATHOLOGY | [address] [...] | + + + + + | [facility] | [address] | [place] [address] | | | PATHOLOGY | [address] [...] | + + + + + | [facility] | [address] | [place] [address] | | | PATHOLOGY | [address] [...] | + + + + + | [facility] | [address] | [place] [address] | | | PATHOLOGY | [address] [...] | + + + + + | [facility] | [address] | [place] [address] | | | PATHOLOGY | [address] [...] | + + + + + | [facility] | [address] | [place] [address] | | | PATHOLOGY | [address] [...] | + + + + + | [facility] | [address] | [place] [address] | | | PATHOLOGY | [address] [...] | + + + + + | [facility] | [address] | [place] [address] | | | PATHOLOGY | [address] [...] | + + + + + | [facility] | [address] | [place] [address] | | | PATHOLOGY | [address] [...] | + + + + + | [facility] | [address] | [place] [address] | | | PATHOLOGY | [address] [...] | + + + + + | [facility] | [address] | [place] [address] | | | PATHOLOGY | [address] [...] | + + + + + | [facility] | [address] | [place] [address] | | | PATHOLOGY | [address] [...] | + + + + + | [facility] | [address] | [place] [address] | | | PATHOLOGY | [address] [...] | + + + + + | [facility] | [address] | [place] [address] | | | PATHOLOGY | [address] [...] | + + + + + | [facility] | [address] | [place] [address] | | | PATHOLOGY | [address] [...] | + + + + + | [facility] | [address] | [place] [address] | | | PATHOLOGY | [address] [...] | + + + + + | [facility] | [address] | [place] [address] | | | PATHOLOGY | [address] [...] | + + + + + | [facility] | [address] | [place] [address] | | | PATHOLOGY | [address] [...] | + + + + + | [facility] | [address] | [place] [address] | | | PATHOLOGY | [address] [...] | + + + + + | [facility] | [address] | [place] [address] | | | PATHOLOGY | [address] [...] | + + + + + | [facility] | [address] | [place] [address] | | | PATHOLOGY | [address] | | | + + + + + documented in this encounter Visit Diagnoses Not on filedocumented in this encounter"
--- OUTSIDE RECORDS SUMMARY | ~2019-09-10 | XMS | Encounter Summary ---
Demographics + + + | Address | [address] | | | [place] [address] | + + + | Home Phone | | + + + | Preferred Language | Unknown | + + + | Marital Status | | + + + | Faith Affiliation | MET | + + + | Race | White | + + + | Ethnic Group | Not or | + + + Author + + + | Author | [facility] | + + + | Organization | [facility] | + + + | Address | Unknown | + + + | Phone | Unavailable | + + + Support + + + + + | Name | Relationship | Address | Phone | + + + + + | Regulo Hong | ECON | [address] | | | | | [place], [place] | | | | | [address] | | + + + + + Care Team Providers + +------+ + | Care Traffic Control Flagger Name | Role | Phone | + +------+ + PCP | Unavailable | + +------+ + Encounter Details +--------+ + + + + | Date | Type | Department | Care Team | Description | +--------+ + + + + | 01/31/ | Transcribed | Allergy Clinic at | Dictation, Other | Transcribed | | 1995 | | [facility] [address] | | | | | | [address] | | | | | | Mailcode: [address] | | | | | | [address] | | | | | | [place], | | | | | | [place] [address] | | | | | | [phone] | | | +--------+ + + + [...] as of this encounter Progress Notes Interface, Manager Spring In - 01/04/2007 5:06 AM PDT [address] [address] or Department of Obstetrics and Gynecology, L466 [facility] February 01, 1996 NAE DALE MD [address] [place] [address] RE: UNA HONG MR#: [id number] [...] under the care of Dr. Wren, in [place], for her hypertension and arthritis, and I [...] Yours sincerely, Hieu Robert M.D. Professor and Boat Canvas Maker Installer, Obstetrics and Gynecology EPK:brennan C: 02/06/96 rh enclosures (2) operative report discharge summary documented in this encounter Plan of Treatment Not on filedocumented as of this encounter Visit Diagnoses Not on filedocumented in this encounter"
--- OUTSIDE RECORDS SUMMARY | ~2019-09-10 | XMS | Encounter Summary ---
Demographics + + + | Address | [address] | | | [place] [address] | + + + | Home Phone | | + + + | Preferred Language | Unknown | + + + | Marital Status | | + + + | Confucianist Affiliation | MET | + + + | Race | White | + + + | Ethnic Group | Not or | + + + Author + + + | Author | [facility] | + + + | Organization | [facility] | + + + | Address | Unknown | + + + | Phone | Unavailable | + + + Support + + + + + | Name | Relationship | Address | Phone | + + + + + | Regulo Hong | ECON | [address] | | | | | [place], [place] | | | | | [address] | | + + + + + Care Team Providers + +------+ + | Care Premium Auditor Name | Role | Phone | + +------+ + PCP | Unavailable | + +------+ + Encounter Details +--------+ + + + + | Date | Type | Department | Care Team | Description | +--------+ + + + + | 11/13/ | Transcribed | Allergy Clinic at | Dictation, Other | Transcribed | | 1995 | | [facility] [address] | | | | | | [address] | | | | | | Mailcode: [address] | | | | | | [address] | | | | | | [place], | | | | | | [place] [address] | | | | | | [phone] | | | +--------+ + + + [...] as of this encounter Progress Notes Interface, Aquatic Instructor In - 01/09/2007 6:36 AM PDT [address] [address] or Department of Obstetrics and Gynecology, L466 Oncology [facility] Care Clinic November 13, 1995 MIKEY VAZQUEZ MD [address] [place] [address] RE:Una Hong MR#:[id number] Dear Doctor Vazquez: I [...] She is going to stay in the [place] area with her daughter for one more week, before returning to [place]. I much appreciate the original referral of this patient. I am sorry that her posoperative course was stormy and complicated but she seems to be doing well now and I hope that her further progress will be uncomplicated. With thanks and best wishes, Hieu Robert M.D. Professor and Low Pressure Kettle Operator, Obstetrics and Gynecology DEON/lexie P documented in this encounter Plan of Treatment Not on filedocumented as of this encounter Visit Diagnoses Not on filedocumented in this encounter"
--- OUTSIDE RECORDS SUMMARY | ~2019-09-10 | XMS | Encounter Summary ---
Demographics + + + | Address | [address] | | | [place] [address] | + + + | Home Phone | | + + + | Preferred Language | Unknown | + + + | Marital Status | | + + + | Mu-Ism Affiliation | MET | + + + [...] [place], [place] | | | | | [address] | | + + + + + Care Team Providers + +------+ + | Care Transfer Iron Operator Name | Role | Phone | + +------+ + PCP | Unavailable | + +------+ + Encounter Details +--------+ + + + + | Date | Type | Department | Care Team | Description | +--------+ + + + + | 01/31/ | Office | General Internal | Note, Outpatient | Progress Note | | 1995 | Visit-Trans | Medicine [address] | Clinic | | | | [address] | [address] | | | | | | Mailcode: L475 | | | | | | Outpatient Clinic | | | | | | [place] | | | | | | [place], [place] | | | | | | [address] | | | | | | [phone] | | | +--------+ + + + [...] as of this encounter Progress Notes Interface, Dispute Resolution Analyst In - 12/14/2006 7:06 AM [facility] CLINIC DATE: 02/01/96 OBSTETRICAL AND GYNECOLOGY CLINIC SUBJECTIVE: 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 She had a slow post-operative course, but has now made steady progress and reports that she is feeling much better although "she still has some way to go". Her most troublesome symptom at present is of urge incontinence, particularly on waking during the night or on getting out of bed in the morning. She continues to have pain with her arthritis which is being managed in [place] by Dr. Osullivan. She has had limited activity and feels tired, but is much more confident about her progress than when last seen. She will be traveling to [place] next week and will be staying there for one month and requested that a report be sent to Dr. Krause in [place], [place]. PHYSICAL EXAMINATION: Examination shows the vaginal vault to be well supported and the vaginal canal of adequate length and capacity. There is some descensus of the anterior vaginal wall which is not aggravated by straining. No stress incontinence is demonstrated. Bimanual examination does not demonstrate any pelvic masses and no local areas of tenderness. IMPRESSION: Ms. Hong now appears to be making satisfactory progress. PLAN: A prescription for Levsinex was provided for use at night time and she will be seen again on her return from [place] in one month's time. Hieu Robert M.D. Professor and Welding Machine Assembler, Obstetrics and Gynecology DEON/oma documented in this encounter Plan of Treatment Not on filedocumented as of this encounter Visit Diagnoses Not on filedocumented in this encounter
--- OUTSIDE RECORDS SUMMARY | ~2019-09-10 | XMS | Encounter Summary ---
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); Cough; | | | | [phone] | | Gastroesophageal | | | | [...] her parents both smoked, also worked at [employer] | + + + + +---------+ + [...] N/A Years of Education: N/A 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 documented [...]
--- OUTSIDE RECORDS SUMMARY | ~2019-09-10 | XMS | Encounter Summary ---
Demographics + + + | Address | [address] | | | [place] [address] | + + + | Home Phone | | + + + | Preferred Language | Unknown | + + + | Marital Status | | + + + | Episcopal Affiliation | Unknown | + + + | Race | Unknown | + + + | Ethnic Group | Unknown | + + + Author + + + | Author | [facility] | | | and Shunana | + + + | Organization | [facility] | | | and [place] [...] Team Providers + +------+ + | Care Appliance Service Technician Name | Role | Phone | [...] Bell MD | | | | | [place], | | | | | | [place] [address] | | | | | | [phone] | | | +--------+--------+ + + + [...]
--- OUTSIDE RECORDS SUMMARY | ~2019-09-10 | XMS | Encounter Summary ---
Demographics + + + | Address | [address] | | | [place] [address] | + + + | Home Phone | | + + + | Preferred Language | Unknown | + + + | Marital Status | | + + + | Temple Affiliation | Unknown | + + + | Race | Unknown | + + + | Ethnic Group | Unknown | + + + Author + + + | Author | [facility] | | | and Shunana | + + + | Organization | [facility] | | | and [place] [...] Team Providers + +------+ + | Care Rasper Machine Operator Name | Role | Phone [...] Bell MD | | | | | [place], | | | | | | [place] [address] | | | | | | [phone] | | | +--------+ + + + [...]
--- OUTSIDE RECORDS SUMMARY | ~2019-09-10 | XMS | Encounter Summary ---
Demographics + + + | Address | [address] | | | [place] [address] | + + + | Home Phone | | + + + | Preferred Language | Unknown | + + + | Marital Status | | + + + | Taoist Affiliation | Unknown | + + + | Race | Unknown | + + + | Ethnic Group | Unknown | + + + Author + + + | Author | [facility] | | | and Shunana | + + + | Organization | [facility] | | | and [...] Team Providers + +------+ + | Care Quarter Lining Smoother Name | Role | Phone | + [...] | PHYSIATRY [address] | [address] | | | | | [place], | [place] | | | | | [place] [address] | [id number] | | | | | [phone] | | | +--------+ + + + [...] her parents both smoked, also worked at [employer] | + + + + +---------+ + [...]
--- OUTSIDE RECORDS SUMMARY | ~2019-09-10 | XMS | Encounter Summary ---
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 | [place], | [address] | | | | | thoracic | [place] [address] | Phone: | | | | | region | Phone: | [phone] | | | | | Weakness of | [phone] | Fax: | | | | | both lower | Fax: | [phone] | | | | | extremities | [phone] | | | | | | Chronic [...] | Chon E A, MD | [address] | | | | | abnormality | [address] | [place], | | | | | 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 | [place], | Phone: | | | | | thoracic | [place] [address] | [phone] | | | | | region | Phone: | Fax: | | | | | Weakness of | [phone] | [phone] | | | | | both lower | Fax: | | | | | | extremities | [phone] | | | | | | Chronic [...] and | DO [address] | | | | n | mobility | [address] [place] | [place], | | | | | | [place] | [place] [address] | | | | | | [address] | Phone: | | | | | | Phone: | [phone] | | | | | | [phone] | Fax: | | | | | | Fax: | [phone] | | | | | | [phone] | | +--------+--------+ + + + + Encounter Details +--------+---------+ + + + | Date | Type | Department | Care Team | Description | +--------+---------+ + + + | 08/22/ | Office | [facility] | Chon Dickens, | Gait abnormality | | 2018 | Visit | PHYSIATRY [address] | [address] | (Primary Dx); | | | | [place], | [place], [place] | 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 Please go to the x-ray department after your appointment to complete these x-rays. The results of your x-rays will be reviewed at your next appointment. If you r x-rays demonstrate any emergent results, the clinic will contact you. A MRI has been requested. Please complete the requested imaging. Within one week, you imk uld receive a call to schedule your [...] m the original. Chon Dickens MD [address] [facility], [address] [place] [address] FAX: PHYSICAL MEDICINE AND REHABILITATION [...] mg by mouth Daily. Misc Natural Products (BBJITD-UTTATLJBU-FWW COMPLEX) TABS Take by mouth Daily. Multiple [...] has no apparent deficits with short or correction memory. She has appropriate fund of knowledge [...] contributing to lower extremity weakness. In addition nUa Hong will have lumbar MRI to evaluate [...] face with Una Hong, over half of [facility] ch was spent formulating and discussing [...]
--- OUTSIDE RECORDS SUMMARY | ~2019-09-10 | XMS | Encounter Summary ---
Demographics + + + | Address | [address] | | | [place] [address] | + + + | Home Phone | | + + + | Preferred Language | Unknown | + + + | Marital Status | | + + + | Alevism Affiliation | Unknown | + + + | Race | Unknown | + + + | Ethnic Group | Unknown | + + + Author + + + | Author | [facility] | | | and Shunana | + + + | Organization | [facility] | | | and [...] Team Providers + +------+ + | Care Yard Demurrage Clerk Name | Role | Phone | [...] MD | oximetry) | | | | [place], | | | | | | [place] [address] | | | | | | [phone] | | | +--------+ + + + + Social History + +-------+ +--------+------+ | Tobacco Use | Types | Packs/Day | Years | Date | | | | | Used | | + +-------+ +--------+------+ | Never Smoker | | | | | + +-------+ +--------+------+ + + | Comments: her parents both smoked, also worked at [employer] | + + + + +---------+ + [...]
--- OUTSIDE RECORDS SUMMARY | ~2019-09-10 | XMS | Encounter Summary ---
Demographics + + + | Address | [address] | | | [place] [address] | + + + | Home Phone [...] [place], [place] | | | | | [address] | | + + + + + Care Team Providers + +------+ + | Care Completion Manager Name | Role | Phone | + +------+ + PCP | Unavailable | + +------+ + Encounter Details +--------+ + + + + | Date | Type | Department | Care Team | Description | +--------+ + + + + | 03/11/ | Office | General Internal | Note, Outpatient | Progress Note | | 1995 | Visit-Trans | Medicine [address] | Clinic | | | | cri[address] | [address] | | | | | | Mailcode: [id number] | | | | | | Outpatient Clinic | | | | | | [place] | | | | | | [place], [place] | | | | | | [address] | | | | | | [phone] | | | +--------+ + + + [...] as of this encounter Progress Notes Interface, Motor Vehicle Examiner In - 01/02/2007 3:07 AM PDT CLINIC DATE: 03/11/96 [facility] SUBJECTIVE: Ms. Hong [facility], having herself just returned from a trip to [place]. She reports that her energy levels continue [...] A letter is also written to her spout positioner in [place], Dr. Vega. Hieu Robert M.D. Professor and Cotton Baler, Obstetrics and Gynecology EPK:jerod C: 03/17/96 C2: 03/25/96 av cc: YIN VEGA MD INTERNAL MEDICINE [address] [place] [id number] documented in this encounter Plan of Treatment Not on filedocumented as of this encounter Visit Diagnoses Not on filedocumented in this encounter"
--- OUTSIDE RECORDS SUMMARY | ~2019-09-10 | XMS | Encounter Summary ---
Demographics + + + | Address | [address] | | | [place] [address] | + + + | Home Phone | | + + + | Preferred Language | Unknown | + + + | Marital Status | | + + + | Presybeterian Affiliation | Unknown | + + + | Race | Unknown | + + + | Ethnic Group | Unknown | + + + Author + + + | Author | [facility] | | | and Shunana | + + + | Organization | [facility] | [...] Team Providers + +------+ + | Care Footwear Factory Worker Name | Role | Phone | + +------+ + PCP | Unavailable | + +------+ + Encounter Details +--------+ + + + + | Date | Type | Department | Care Team | Description | +--------+ + + + + | 10/21/ | Hospital | [facility] | James Munguia | | | 2007 | Encounter | MED CTR XRAY [address] | [address] | | | | | [place] | [address] | | | | | [place] [id number] | [place] [id number] | | | | | [phone] | [phone] | | | | | | | [...]
--- OUTSIDE RECORDS SUMMARY | ~2019-09-10 | XMS | Encounter Summary ---
Demographics + + + | Address | [address] | | | [place] [address] | + + + | Home Phone | | + + + | Preferred Language | Unknown | + + + | Marital Status | | + + + | Restorationist Affiliation | MET | + + + | Race | White | + + + | Ethnic Group | Not or | + + + Author + + + | Author | [facility] | + + + | Organization | [facility] | + + + | Address | Unknown | + + + | Phone | Unavailable | + + + Support + + + + + | Name | Relationship | Address | Phone | + + + + + | Regulo Hong | ECON | [address] | | | | | [place], [place] | | | | | [address] | | + + + + + Care Team Providers + +------+ + | Care Intensive Care Nurse Name | Role | Phone | + +------+ + PCP | Unavailable | + +------+ + Encounter Details +--------+ + + + + | Date | Type | Department | Care Team | Description | +--------+ + + + + | 11/20/ | Office | General Internal | Note, Outpatient | Progress Note | | 1995 | Visit-Trans | Medicine [address] | Clinic | | | | [address] | [address] | | | | | | Mailcode: L475 | | | | | | Outpatient Clinic | | | | | | [address] | | | | | | [place], [place] | | | | | | [address] | | | | | | [phone] | | | +--------+ + + + [...] as of this encounter Progress Notes Interface, Senior Category Manager In - 01/09/2007 6:36 AM PDT CLINIC DATE: 11/20/95 [facility] The patient is seen for her second postoperative visit on 11/20/95. She continues to make satisfactory although rather slow progress following her recent hospital admission at which time she had a pelvic floor repair including vaginal hysterectomy and sacrospinous fixation. Her surgery was complicated by intraperitoneal bleed requiring laparotomy. She continues to stay with her daughter in [place] and is becoming more active, has a [...] postoperative recovery. She will remain in the [place] area for a few more days before returning to [place]. A further follow-up appointment has not been given but the patient has been asked to report back by phone to clinic before she returns to [place]. Hieu Robert M.D. Professor and Signal Apprentice Obstetrics and Gynecology MARIBELLK:romain cc: JLUIS VAZQUEZ MD [address] [place] [address] [address] [place] [id number] documented in this encounter Plan of Treatment Not on filedocumented as of this encounter Visit Diagnoses Not on filedocumented in this encounter"
--- OUTSIDE RECORDS SUMMARY | ~2019-09-10 | XMS | Encounter Summary ---
Demographics + + + | Address | [address] | | | [place] [address] | + + + | Home Phone [...] + + + | Author | [facility] | + + + | Organization | [facility] | + + + | Address | Unknown | + + + | Phone | Unavailable | + + + Support + + + + + | Name | Relationship | Address | Phone | + + + + + | Regulo Hong | ECON | [address] | | | | | [place], [place] | | | | | [address] | | + + + + + Care Team Providers + +------+ + | Care Vascular Nurse Name | Role | Phone | [...] [address] | | | | | | [place], [place] | | | | | | [address] | | | | | | [phone] | | | +--------+ + + + [...] as of this encounter Progress Notes Interface, Professional Poker Player In - 12/14/2006 7:06 AM [facility] CLINIC DATE: 02/01/96 OBSTETRICAL AND [...] her arthritis which is being managed in [place] by Dr. Osullivan. She has had limited activity and feels tired, but is much more confident about her progress than when last seen. She will be traveling to [place] next week and will be staying there for one month and requested that a report be sent to Dr. Krause in [place], [place]. PHYSICAL EXAMINATION: Examination shows the vaginal [...] be seen again on her return from [place] in one month's time. Hieu Robert M.D. Professor and Sergeant At Arms, Obstetrics and Gynecology DEON/oma documented in this encounter Plan of Treatment Not on filedocumented as of this encounter Visit Diagnoses Not on filedocumented in this encounter
--- OUTSIDE RECORDS SUMMARY | ~2019-09-10 | XMS | Encounter Summary ---
Demographics + + + | Address | [address] | | | [place] [address] | + + + | Home Phone [...] | Organization | [facility] | | | and [place] | [...] Team Providers + +------+ + | Care Section Cutter Name | Role | Phone | + [...] Medication Refill | | 2017 | | [facility] | E, DO [address] | | | | | MEDICAL CLINIC [address] | [place], [place] | | | | | [address] [place], | [address] | | | | | [place] [address] | [phone] | | | | | [phone] | | | +--------+--------+ + + + [...]
--- OUTSIDE RECORDS SUMMARY | ~2019-09-10 | XMS | Encounter Summary ---
Demographics + + + | Address | [address] | | | [place] [address] | + + + | Home Phone | | + + + | Preferred Language | Unknown | + + + | Marital Status | | + + + | Anglican Affiliation | MET | + + + | Race | White | + + + | Ethnic Group | Not or | + + + Author + + + | Author | [facility] | + + + | Organization | [facility] | + + + | Address | Unknown | + + + | Phone | Unavailable | + + + Support + + + + + | Name | Relationship | Address | Phone | + + + + + | Regulo Hong | ECON | [address] | | | | | [place], [place] | | | | | [address] | | + + + + + Care Team Providers + +------+ + | Care Security Guard Supervisor Name | Role | Phone | + +------+ + PCP | Unavailable | + +------+ + Encounter Details +--------+ + + + + | Date | Type | Department | Care Team | Description | +--------+ + + + + | 11/20/ | Office | General Internal | Note, Outpatient | Progress Note | | 1995 | Visit-Trans | Medicine [address] | Clinic | | | | [address] | [address] | | | | | | Mailcode: L475 | | | | | | Outpatient Clinic | | | | | | [address] | | | | | | [place], [place] | | | | | | [address] | | | | | | [phone] | | | +--------+ + + + [...] as of this encounter Progress Notes Interface, Practicing Dermatologist In - 01/09/2007 6:36 AM PDT CLINIC DATE: 11/20/[address] [facility] The patient is seen for her second postoperative visit on 11/20/95. She continues to make satisfactory although rather slow progress following her recent hospital admission at which time she had a pelvic floor repair including vaginal hysterectomy and sacrospinous fixation. Her surgery was complicated by intraperitoneal bleed requiring laparotomy. She continues to stay with her daughter in [place] and is becoming more active, has a [...] postoperative recovery. She will remain in the [place] area for a few more days before returning to [place]. A further follow-up appointment has not been given but the patient has been asked to report back by phone to clinic before she returns to [place]. Hieu Robert M.D. Professor and Brake Repairer Bus Obstetrics and Gynecology MARIBELLK:romain cc: JLUIS VAZQUEZ MD [address] [place] [address] [address] [place] [id number] documented in this encounter Plan of Treatment Not on filedocumented as of this encounter Visit Diagnoses Not on filedocumented in this encounter"
--- OUTSIDE RECORDS SUMMARY | ~2019-09-10 | XMS | Encounter Summary ---
Demographics + + + | Address | [address] | | | [place] [address] | + + + | Home Phone | | + + + | Preferred Language | Unknown | + + + | Marital Status | | + + + | Scientology Affiliation | MET | + + + | Race | White | + + + | Ethnic Group | Not or | + + + Author + + + | Author | [facility] | + + + | Organization | [facility] | + + + | Address | Unknown | + + + | Phone | Unavailable | + + + Support + + + + + | Name | Relationship | Address | Phone | + + + + + | Regulo Hong | ECON | [address] | | | | | [place], [place] | | | | | [address] | | + + + + + Care Team Providers + +------+ + | Care Manager Clinical Informatics Name | Role | Phone | + [...] | | | Caridad Auguste Mailcode: | [place], [place] | | | | | [address] | [address] | | | | | [address] | | | | | | [place], [place] | | | | | | [address] | | | | | | [phone] | | | +--------+ + + + [...] | | + +---------+ + + | [facility] DEPARTMENT OF | | | | [...] | | + +---------+ + + | [facility] DEPARTMENT OF | | | | | RADIOLOGY | | | | + +---------+ + + documented in this encounter Visit Diagnoses Not on filedocumented in this encounter"
--- OUTSIDE RECORDS SUMMARY | ~2019-09-10 | XMS | Encounter Summary ---
Demographics + + + | Address | [address] | | | [place] [address] | + + + | Home Phone | | + + + | Preferred Language | Unknown | + + + | Marital Status | | + + + | Moravian Affiliation | Unknown | + + + | Race | Unknown | + + + | Ethnic Group | Unknown | + + + Author + + + | Author | [facility] | | | and Shunana | + + + | Organization | [facility] | | | and [...] Team Providers + +------+ + | Care Local Company Flatbed Truck Driver Name | Role | Phone | [...] | pulmonary disease, | | | | [place], | | unspecified COPD | | | | [place] [address] | | type (HCC); Cough; | | | | [phone] | | Gastroesophageal | | | | [...] her parents both smoked, also worked at [employer] | + + + + +---------+ + [...] find something else. When you see Dr. Richardsno next, make sure you get the Prevnar. 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 documented [...]
--- OUTSIDE RECORDS SUMMARY | ~2019-09-10 | XMS | Encounter Summary ---
Demographics + + + | Address | [address] | | | [place] [address] | + + + | Home Phone | | + + + | Preferred Language | Unknown | + + + | Marital Status | | + + + | Yarsani Affiliation | Unknown | + + + | Race | Unknown | + + + | Ethnic Group | Unknown | + + + Author + + + | Author | [facility] | | | and Shunana | + + + | Organization | [facility] | | | and [place] | [...] Team Providers + +------+ + | Care Doctor Chiropractic Name | Role | Phone | + [...] | | [address] [place], | [address] | | | | | [place] [address] | [phone] | | | | | [phone] | | | +--------+--------+ + + + [...]
--- OUTSIDE RECORDS SUMMARY | ~2019-09-10 | XMS | Encounter Summary ---
Demographics + + + | Address | [address] | | | [place] [address] | + + + | Home Phone | | + + + | Preferred Language | Unknown | + + + | Marital Status | | + + + | Islam Affiliation | MET | + + + [...] [place], [place] | | | | | [address] | | + + + + + Care Team Providers + +------+ + | Care Household Chores Name | Role | Phone | + +------+ + PCP | Unavailable | + +------+ + Encounter Details +--------+ + + + + | Date | Type | Department | Care Team | Description | +--------+ + + + + | 05/30/ | Office | General Internal | Note, Outpatient | Progress Note | | 1995 | Visit-Trans | Medicine [address] | Clinic | | | | [address] | [address] | | | | | | Mailcode: [address] | | | | | | Outpatient Clinic | | | | | | [address] | | | | | | [place], [place] | | | | | | [address] | | | | | | [phone] | | | +--------+ + + + [...] as of this encounter Progress Notes Interface, Sagger Preparer In - 12/28/2006 3:09 AM PDT CLINIC DATE: 05/30/96 [facility] CLINIC: Ms. Hong returns to the [facility] seven months after surgery which included [...] surgery. PLAN: She will be seeing her fine arts model, Dr. Richardson in [place] for ongoing medical care and she was encouraged to increase her level of activity and particularly to do pelvic floor exercises. She returns to [place] on a regular basis as her daughter lives in this area and she will return for further check one year from now. Hieu Robert M.D. Professor and Breading Machine Tender, Obstetrics and Gynecology DEON/moon documented in this encounter Plan of Treatment Not on filedocumented as of this encounter Visit Diagnoses Not on filedocumented in this encounter"
--- OUTSIDE RECORDS SUMMARY | ~2019-09-10 | XMS | Encounter Summary ---
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
--- OUTSIDE RECORDS SUMMARY | ~2019-09-10 | XMS | Encounter Summary ---
Demographics + + + | Address | [address] | | | [place] [address] | + + + | Home Phone | | + + + | Preferred Language | Unknown | + + + | Marital Status | | + + + | Holiness Affiliation | Unknown | + + + | Race | Unknown | + + + | Ethnic Group | Unknown | + + + Author + + + | Author | [facility] | | | and Shunana | + + + | Organization | [facility] | | | and [...] Providers + +------+ + | Care Paper Machine Backtender Name | Role | Phone | + [...] | Chon Menchaca MD | [address] | | | | | abnormality | [address] | [place], | | | | | Postural | [address]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 | [place], | [address] | | | | | thoracic | [place] [address] | Phone: | | | | | region | Phone: | [phone] | | | | | Weakness of | [phone] | Fax: | | | | | both lower | Fax: | [phone] | | | | | extremities | [phone] | | | | | | Chronic [...] | Chon E A, MD | [address] | | | | | abnormality | [address] | [place], | | | | | Postural | [address] | [place] [address] | | | | | kyphosis of | [place], | Phone: | | | | | thoracic | [place] [address] | [phone] | | | | | region | Phone: | Fax: | | | | | Weakness of | [phone] | [phone] | | | | | both lower | Fax: | | | | | | extremities | [phone] | | | | | | Chronic [...] and | DO [address] | [address] | | | | n | mobility | [address] | [place], | | | | | | [place] | [place] [address] | | | | | | [address] | Phone: | | | | | | Phone: | [phone] | | | | | | [phone] | Fax: | | | | | | Fax: | [phone] | | | | | | [phone] | | +--------+--------+ + + + + Encounter Details +--------+---------+ + + + | Date | Type | Department | Care Team | Description | +--------+---------+ + + + | 08/22/ | Office | [facility] | Chon Dickens, | Gait abnormality | | 2018 | Visit | PHYSIATRY [address] | [address] | (Primary Dx); | | | | [address] [place], | [place], [place] | 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 Chon Dickens MD [address] [facility], [address] [place] [address] FAX: PHYSICAL MEDICINE AND REHABILITATION [...] mg by mouth Daily. Misc Natural Products (OXTWPA-YXRMBUIEI-SMH COMPLEX) TABS Take by mouth Daily. Multiple [...] has no apparent deficits with short or halfway memory. She has appropriate fund of knowledge [...] face with Una Hong, over half of [employer] ch was spent formulating and discussing their [...]
--- OUTSIDE RECORDS SUMMARY | ~2019-09-10 | XMS | Encounter Summary ---
Demographics + + + | Address | [address] | | | [place] [address] | + + + | Home Phone | | + + + | Preferred Language | Unknown | + + + | Marital Status | | + + + | Catholic Affiliation | MET | + + + | Race | White | + + + | Ethnic Group | Not or | + + + Author + + + | Author | [facility] | + + + | Organization | [facility] | + + + | Address | Unknown | + + + | Phone | Unavailable | + + + Support + + + + + | Name | Relationship | Address | Phone | + + + + + | Regulo Hong | ECON | [address] | | | | | [place], [place] | | | | | [address] | | + + + + + Care Team Providers + +------+ + | Care Resident Assistant Cna Name | Role | Phone | + [...] [address] | | | | | | [place], [place] | | | | | | [address] | | | | | | [phone] | | | +--------+ + + + [...] as of this encounter Progress Notes Interface, Fitness And Wellness Instructor In - 12/14/2006 7:06 AM [facility] DATE: 02/01/96 OBSTETRICAL AND GYNECOLOGY CLINIC [...] her arthritis which is being managed in [place] by Dr. Osullivan. She has had limited activity and feels tired, but is much more confident about her progress than when last seen. She will be traveling to [place] next week and will be staying there for one month and requested that a report be sent to Dr. Krause in [place], [place]. PHYSICAL EXAMINATION: Examination shows the vaginal [...] be seen again on her return from [place] in one month's time. Hieu Robert M.D. Professor and Utility Worker Driver, Obstetrics and Gynecology DEON/oma documented in this encounter Plan of Treatment Not on filedocumented as of this encounter Visit Diagnoses Not on filedocumented in this encounter
--- OUTSIDE RECORDS SUMMARY | ~2019-09-10 | XMS | Encounter Summary ---
Demographics + + + | Address | [address] | | | [place] [address] | + + + | Home Phone [...] [place], [place] | | | | | [address] | | + + + + + Care Team Providers + +------+ + | Care Enterprise Services Manager Name | Role | Phone | + +------+ + PCP | Unavailable | + +------+ + Encounter Details +--------+ + + + + | Date | Type | Department | Care Team | Description | +--------+ + + + + | 11/01/ | Procedure - | Digestive Health | Record, Operation | Operative Report | | 1995 | | [place] [facility] [address] | | | | | Transcribed | [address] | | | | | | Mailcode: [facility] | | | | | | [facility] | | | | | | Healing, [address] | | | | | | [place], [place] | | | | | | [address] | | | | | | [phone] | | | +--------+ + + + [...] | + + | 11/01/1995 12:00 AM [facility] | | [facility] | | [address], [place] [address] | | [facility] | | | | OPERATION RECORD | | | | Med Rec No.: [id number] Date: 11/01/95 | | | | Name: Una Hong | | | | | | ATTENDING SURGEON: Hieu Robert M.D. | | Professor and High Climber, | | Obstetrics and Gynecology | | | | CATTLE PRODUCERS(S): Haley Lucas M.D. | | Resident, Obstetrics [...] | Resident, Obstetrics & Gynecology Professor and High Climber, | | Obstetrics and Gynecology | | | | MMFranki/nancy | | | | P | | | | cc: | | | | | | | | YIN VEGA MD | | [address] [facility] [address] | | [place] [address] | | | | | | | | MIKEY VAZQUEZ MD | | [address] | | [place] [address] | | | + + documented in this encounter Visit Diagnoses Not on filedocumented in this encounter"
--- OUTSIDE RECORDS SUMMARY | ~2019-09-10 | XMS | Encounter Summary ---
Demographics + + + | Address | [address] | | | [place] [address] | + + + | Home Phone | | + + + | Preferred Language | Unknown | + + + | Marital Status | | + + + | Taoism Affiliation | MET | + + + [...] [place], [place] | | | | | [address] | | + + + + + Care Team Providers + +------+ + | Care Informatics Manager Name | Role | Phone | [...] [id number] | | | | | | [place], [place] | | | | | | [address] | | | | | | [phone] | | | +--------+ + + + [...] [place] | | | | | | [address] | | | | + + + + + + + + | Specimen | + + | | + + + + + + + | Performing | Address | City/State/Zipcode | Phone Number | | Organization | | | | + + + + + | [facility] | [address] | [place] [address] | | | PATHOLOGY | [address] [...] [place] | | | | | | [address] | | | | + + + + + + + + | Specimen | + + | | + + + + + + + | Performing | Address | City/State/Zipcode | Phone Number | | Organization | | | | + + + + + | [facility] | [address] | [place] [address] | | | PATHOLOGY | [address] [...] | + + + + + | [facility] | [address] | [place] [address] | | | PATHOLOGY | [address] [...] | + + + + + | [facility] | [address] | [place] [address] | | | PATHOLOGY | [address] [...] | + + + + + | [facility] | [address] | [place] [address] | | | PATHOLOGY | [address] [...] | + + + + + | [facility] | [address] | [place] [address] | | | PATHOLOGY | [address] [...] | + + + + + | [facility] | [address] | [place] [address] | | | PATHOLOGY | [address] [...] | + + + + + | [facility] | [address] | [place] [address] | | | PATHOLOGY | [address] [...] | + + + + + | [facility] | [address] | [place] [address] | | | PATHOLOGY | [address] [...] | + + + + + | [facility] | [address] | [place] [address] | | | PATHOLOGY | [address] [...] | + + + + + | [facility] | [address] | [place] [address] | | | PATHOLOGY | [address] [...] | + + + + + | [facility] | [address] | [place] [address] | | | PATHOLOGY | [address] [...] | + + + + + | [facility] | [address] | [place] [address] | | | PATHOLOGY | [address] [...] | + + + + + | [facility] | [address] | [place] [address] | | | PATHOLOGY | [address] [...] | + + + + + | [facility] | [address] | [place] [address] | | | PATHOLOGY | [address] [...] | + + + + + | [facility] | [address] | [place] [address] | | | PATHOLOGY | [address] [...] | + + + + + | [facility] | [address] | [place] [address] | | | PATHOLOGY | [address] [...] | + + + + + | [facility] | [address] | [place] [address] | | | PATHOLOGY | [address] [...] | + + + + + | [facility] | [address] | [place] [address] | | | PATHOLOGY | [address] [...] | + + + + + | [facility] | [address] | [place] [address] | | | PATHOLOGY | [address] [...] | + + + + + | [facility] | [address] | [place] [address] | | | PATHOLOGY | [address] [...] | + + + + + | [facility] | [address] | [place] [address] | | | PATHOLOGY | [address] [...] | + + + + + | [facility] | [address] | [place] [address] | | | PATHOLOGY | [address] | | | + + + + + documented in this encounter Visit Diagnoses Not on filedocumented in this encounter"
--- OUTSIDE RECORDS SUMMARY | ~2019-09-10 | XMS | Encounter Summary ---
Demographics + + + | Address | [address] | | | [place] [address] | + + + | Home Phone | | + + + | Preferred Language | Unknown | + + + | Marital Status | | + + + | Faith Affiliation | Unknown | + + + | Race | Unknown | + + + | Ethnic Group | Unknown | + + + Author + + + | Author | [facility] | | | and Shunana | + + + | Organization | [facility] | | [...] Team Providers + +------+ + | Care Low Pressure Boiler Tender Name | Role | Phone | [...] 2014 | | PULMONARY [address] | Fire Boat Engineer | | | | | [place], | | | | | | [place] [address] | | | | | | [phone] | | | +--------+ + + + [...]
--- OUTSIDE RECORDS SUMMARY | ~2019-09-10 | XMS | Encounter Summary ---
Demographics + + + | Address | [address] | | | [place] [address] | + + + | Home Phone [...] Author | [facility] | + + + | Organization | [facility] | + + + | Address | Unknown | + + + | Phone | Unavailable | + + + Support + + + + + | Name | Relationship | Address | Phone | + + + + + | Regulo Hong | ECON | [address] | | | | | [place], [place] | | | | | [address] | | + + + + + Care Team Providers + +------+ + | Care Chyron Operator Name | Role | Phone | + +------+ + PCP | Unavailable | + +------+ + Encounter Details +--------+ + + + + | Date | Type | Department | Care Team | Description | +--------+ + + + + | 03/11/ | Transcribed | Allergy Clinic at | Dictation, Other | Transcribed | | 1995 | | [facility] [address] | | | | | | [address] | | | | | | Mailcode: [address] | | | | | | [address] | | | | | | [place], | | | | | | [place] [address] | | | | | | [phone] | | | +--------+ + + + [...] as of this encounter Progress Notes Interface, Research Assoc In - 01/02/2007 3:07 AM PDT [address] [address] or March 11, 1996 YIN VEGA MD [address] [place] [address] RE:Una Hong MR#:[id number] Vega: I saw your patient, Una Hong, again recently on her return from [place]. Unfortunately, she continues to be troubled by [...] more marked while she was active in [place]. I have prescribed some Levsinex at nighttime [...] Yours sincerely, Hieu Robert M.D. Professor and Tile Finisher, Obstetrics and Gynecology DEON:gus C:03/18/96 rh documented in this encounter Plan of Treatment Not on filedocumented as of this encounter Visit Diagnoses Not on filedocumented in this encounter
--- OUTSIDE RECORDS SUMMARY | ~2019-09-10 | XMS | Encounter Summary ---
Demographics + + + | Address | [address] | | | [place] [address] | + + + | Home Phone | | + + + | Preferred Language | Unknown | + + + | Marital Status | | + + + | Jain Affiliation | MET | + + + | Race | White | + + + | Ethnic Group | Not or | + + + Author + + + | Author | [facility] | + + + | Organization | [facility] | + + + | Address | Unknown | + + + | Phone | Unavailable | + + + Support + + + + + | Name | Relationship | Address | Phone | + + + + + | Regulo Hong | ECON | [address] | | | | | [place], [place] | | | | | [address] | | + + + + + Care Team Providers + +------+ + | Care Brass Bobbin Winder Name | Role | Phone | + [...] | | | Caridad Auguste Mailcode: | [place], [place] | | | | | [address] | [id number] | | | | | [address] | | | | | | [place], [place] | | | | | | [address] | | | | | | [phone] | | | +--------+ + + + [...] | | + +---------+ + + | [facility] | | | | | [...] | JOLIE | | | | | RZIWAN | J.-Radiologist 2: VAN | | | [...] | | + +---------+ + + | [facility] | | | | | RADIOLOGY | | | | + +---------+ + + documented in this encounter Visit Diagnoses Not on filedocumented in this encounter"
--- OUTSIDE RECORDS SUMMARY | ~2019-09-10 | XMS | Encounter Summary ---
Demographics + + + | Address | [address] | | | [place] [address] | + + + | Home Phone | | + + + | Preferred Language | Unknown | + + + | Marital Status | | + + + | Jewish Affiliation | Unknown | + + + | Race | Unknown | + + + | Ethnic Group | Unknown | + + + Author + + + | Author | [facility] | | | and Shunana | + + + | Organization | [facility] | | | [...] Providers + +------+ + | Care Public Health Clinical Nurse Specialist Name | Role | Phone | [...] MD | oximetry) | | | | [place], | | | | | | [place] [address] | | | | | | [phone] | | | +--------+ + + + + Social History + +-------+ +--------+------+ | Tobacco Use | Types | Packs/Day | Years | Date | | | | | Used | | + +-------+ +--------+------+ | Never Smoker | | | | | + +-------+ +--------+------+ + + | Comments: her parents both smoked, also worked at [employer] | + + + + +---------+ + [...]
--- OUTSIDE RECORDS SUMMARY | ~2019-09-10 | XMS | Encounter Summary ---
Demographics + + + | Address | [address] | | | [place] [address] | + + + | Home Phone [...] + + + | Author | [facility] | + + + | Organization | [facility] | + + + | Address | Unknown | + + + | Phone | Unavailable | + + + Support + + + + + | Name | Relationship | Address | Phone | + + + + + | Regulo Hong | ECON | [address] | | | | | [place], [place] | | | | | [address] | | + + + + + Care Team Providers + +------+ + | Care Team Truck Driver Name | Role | Phone | + +------+ + PCP | Unavailable | + +------+ + Encounter Details +--------+ + + + + | Date | Type | Department | Care Team | Description | +--------+ + + + + | 10/31/ | Results | LAB CORE [address] | Reid, Faculty | | | 1995 | Only | [address] | [phone] | | | | | [place], [place] | | | | | | [address] | | | | | | [phone] | | | +--------+ + + + [...] thickness. | | | | | | Leather Toggler sections | | | | | | [...] | | | | | | and outside sales account representative | | | | | | [facility] | [address] | [place] [address] | | | PATHOLOGY | [address] | | | + + + + + documented in this encounter Visit Diagnoses Not on filedocumented in this encounter"
--- OUTSIDE RECORDS SUMMARY | ~2019-09-10 | XMS | Encounter Summary ---
Demographics + + + | Address | [address] | | | [place] [address] | + + + | Home Phone | | + + + | Preferred Language | Unknown | + + + | Marital Status | | + + + | Scientology Affiliation | MET | + + + | Race | White | + + + | Ethnic Group | Not or | + + + Author + + + | Author | [facility] | + + + | Organization | [facility] | + + + | Address | Unknown | + + + | Phone | Unavailable | + + + Support + + + + + | Name | Relationship | Address | Phone | + + + + + | Regulo Hong | ECON | [address] | | | | | [place], [place] | | | | | [address] | | + + + + + Care Team Providers + +------+ + | Care Emergency Medical Dispatcher Name | Role | Phone | + +------+ + PCP | Unavailable | + +------+ + Encounter Details +--------+ + + + + | Date | Type | Department | Care Team | Description | +--------+ + + + + | 03/11/ | Transcribed | Allergy Clinic at | Dictation, Other | Transcribed | | 1995 | | [facility] [address] | | | | | | [address] | | | | | | Mailcode: [address] | | | | | | [address] | | | | | | [place], | | | | | | [place] [address] | | | | | | [phone] | | | +--------+ + + + [...] as of this encounter Progress Notes Interface, Grinding Operator In - 01/02/2007 3:07 AM PDT [address] [address] or March 11, 1996 YIN VEGA MD [address] [place] [address] RE:Una Hong MR#:[id number] Vega: I saw your patient, Una Hong, again recently on her return from [place]. Unfortunately, she continues to be troubled by [...] more marked while she was active in [place]. I have prescribed some Levsinex at nighttime [...] Yours sincerely, Hieu Robert M.D. Professor and Auditor Appraiser, Obstetrics and Gynecology DEON:gus C:03/18/96 rh documented in this encounter Plan of Treatment Not on filedocumented as of this encounter Visit Diagnoses Not on filedocumented in this encounter
--- OUTSIDE RECORDS SUMMARY | ~2019-09-10 | XMS | Encounter Summary ---
Demographics + + + | Address | [address] | | | [place] [address] | + + + | Home Phone | | + + + | Preferred Language | Unknown | + + + | Marital Status | | + + + | Church Affiliation | Unknown | + + + | Race | Unknown | + + + | Ethnic Group | Unknown | + + + Author + + + | Author | [facility] | | | and Shunana | + + + | Organization | [facility] | [...] Team Providers + +------+ + | Care Distribution Analyst Name | Role | Phone | [...] | PHYSIATRY [address] | [address] | | | | | [address] | [address] | | | | | [place] [address] | [place] [address] | | | | | [phone] | | | +--------+ + + + [...]
[~2019-09-10 07:18] MED LIST: BENEFIBER236 GM PO; BONIVA IV; CIPROFLOXACIN500 MG PO; CITRACAL-VIT D1 EACH PO; DAILY MULTIPLE1 EACH PO; DHA100 MG PO; GABAPENTIN300 MG PO; METRONIDAZOLE500 MG PO; MIRALAX17 GM PO; PRAMIPEXOLE D0.25 MG PO; PRILOSEC OTC20 MG PO; SPIRIVA18 MCG INH; SYNTHROID150 MCG PO; TRAMADOL HCL50 MG PO
--- OUTSIDE RECORDS SUMMARY | 2019-09-10 07:20 | XMS ---
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 E.D. VISIT COUNT (12 MO.) 1 [facility] TOTAL 1 NOTE: Visits indicate total known visits. ED/UCC VISIT TRACKING (12 MO.) 09/10/2019 07:18 [facility] [place] TYPE: Emergency COMPLAINT: - FALL INPATIENT VISIT TRACKING (12 MO.) No inpatient visits to display in this time frame [id number]
[2019-09-10] MEDS ORDERED: COZAAR100 MG PO (07:47)
[2019-09-10] MEDS ORDERED: DULOXETINE HCL30 MG PO (07:48)
[2019-09-10] MEDS ORDERED: DICLOFENAC SODI50 MG PO (07:49)
[2019-09-10] MEDS ORDERED: ANORO ELLIPTA1 EACH INH ×2 (07:49→17:17)
--- NOTE | 2019-09-10 13:15 | NUR ---
Patient arrives to unit via stretcher. Patient transferred to hospital bed with 3 people. Vital signs taken, assessment complete. Attends placed with 1 incontinent void. Family in room with patient, oriented to room. Hematoma on right abdomen is ecchymotic with tenderness to palpation. Bruise outlined with pen, will continue to monitor hematoma.
--- NOTE | 2019-09-10 14:30 | NUR ---
Patient reports pain of 8/10, prn pain medication given.
--- NOTE | 2019-09-10 15:20 | NUR ---
Patient laying in bed watching tv. Ice pack in place around hematoma with adams bandage. Bruising remains within outline per previous assessments. Swelling consistent with previous assessments. Vital signs taken. Patient reports pain of 8/10, despite prn pain medication. Plan to assess pain management options.
--- NOTE | 2019-09-10 16:10 | NUR ---
Dr. Zaidi called regarding patient status. Orders acknowledged.
[2019-09-10] MEDS ORDERED: VENTOLIN HFA18 GM INH (17:18)
[2019-09-10] MEDS ORDERED: OMEGA 3 1,0001 EACH PO (17:41)
[2019-09-10] MEDS ORDERED: OCUVITE TABLET1 EAC1 PO (17:42)
--- NOTE | 2019-09-10 17:44 | NUR ---
Medications reconciled using pharmacy records, patient's home list and patient interview
--- NOTE | 2019-09-10 17:47 | NUR ---
Patient laying in bed with family at bedside. Patient reports pain of 1/10 after prn pain medication (see MAR). Hematoma assessed, bruising remains within outline. Vital signs stable. Patient denies further needs at this time, call light within reach.
--- NOTE | 2019-09-10 17:50 | EKG ---
[facility] [address] [facility] [place], [place] [address] Signed Normal sinus rhythm Possible Left atrial enlargement Borderline ECG No previous ECGs available Confirmed by DARWIN GARZON DO ([id number]) on 09/10/2019 5:50:35 PM Electronically Signed By: DARWIN GARZON DO 09/10/19 1750 PATIENT NAME: NINFA PEPPER Electrocardiogram DATE OF : [birth year] PHYSICIAN: DARWIN GARZON DO REPORT #: [id number] REPORT IS CONFIDENTIAL AND NOT TO BE RELEASED WITHOUT AUTHORIZATION
--- NOTE | 2019-09-10 18:45 | NUR ---
Patient laying in bed with family at bedside. Vitals taken. Hematoma on right abdomen ecchymotic within ouline. Swelling appears unchanged from previous assessment. Patient denies pain. No further needs at this time, call light within reach.
--- NOTE | 2019-09-10 19:15 | NUR ---
SHIFT REPORT RECEIVED FROM ELA HARDY AT BEDSIDE. PT AWAKE AND RESTING IN BED. HEMATOMA TO RIGHT FLANK AND LEFT MANZANO NOTED AND ALREADY OUTLINED. SOMEWHAT FIRM TO THE TOUCH.PT DENIES PAIN AT THIS TIME, WILL MONITOR. FAMILY IN ROOM. ALEX WRAP TO RIGHT FLANK REPOSITIONED IN PLACE WITH HELP FROM HAYLEY HERNANDEZ. IV FLUIDS INFUSING AT 85MLS/HR. SITE WNL. NO FURTHER NEEDS, CALL LIGHT IN REACH.
--- NOTE | 2019-09-10 20:00 | NUR ---
RT PEREZ CAME TO THIS RN AND ASKED ABOUT POSSIBILITY TO START DUONEBS PT TAKES ALBUTEROL AT HOME. THIS RN DISCUSSED WITH DR FLOOD AT NURSE'S STATION. PER DR FLOOD, OKAY FOR PT TO RECEIVE QID DUONEBS.
--- NOTE | 2019-09-10 20:18 | HP ---
[facility] [address] [place], [place] [address] Signed ADMISSION DATE: 09/10/2019 REASON FOR ADMISSION: Ground level fall with expanding right flank hematoma. HISTORY OF PRESENT ILLNESS: This very fragile 89-year-old white woman is accompanied by her . At approximately 7 in the morning, she was getting out of bed and fell initially bruising her left leg, but with some amount of trauma by hitting a nightstand on her right flank area. She presented promptly to the emergency room traveling by ambulance and evaluated thoroughly by Dr. Dickens. His evaluation included noting a contusion of her left leg, but also her right flank and chest wall area. She was noted to have expansion of swelling and an obvious hematoma developing. Initial x-ray of her leg showed no sign of leg fracture, only a small hematoma. On the chest wall, the hematoma that had developed was associated with some tenderness and the chest x-ray showed no sign of pneumothorax. On that basis, a CT scan of the chest was ordered, which did not clearly show any rib fracture per se, but absolutely showed a hematoma of the chest wall and what appeared to be possible active extravasation, but this is superficial in the skin and not near the chest wall itself. Equivocal buckle fractures of the 10th and 11th ribs were noted. I was called at that point and advised compression to the area, which has been undertaken. Currently, the patient has no shortness of breath. She is not tachycardic or otherwise hemodynamically compromised. The patient denies any use of anticoagulants other than a diclofenac pill from time to time. MEDICATIONS: Review of her medications shows that she does take pramipexole, tramadol, omeprazole, losartan, Synthroid, duloxetine, diclofenac, and a calcium tablet. ALLERGIES: She has no known drug allergies, though is sensitive to lisinopril, probably related to cough. REVIEW OF SYSTEMS: She denies any shortness of breath or pain other than her right flank and posterior chest area. Left leg has some soreness. LABORATORY DATA: Initial lab studies showed a hematocrit of 34.5, a platelet count of 295,000, Electronically Signed By: JASON FLOOD MD 09/10/192017 PATIENT NAME: NINFA PEPPER HISTORY AND PHYSICAL DATE OF : [birth year] REPORT #: [id number] PHYSICIAN: JASON FLOOD MD PCP: NO PRIMARY CARE PHYSICIAN REPORT IS CONFIDENTIAL AND NOT TO BE RELEASED WITHOUT AUTHORIZATION [facility] [address] [place], [place] [address] Signed eosinophils 9.3. Chem profile was normal. Creatinine 0.67. Liver enzymes normal. Total protein 5.3, globulin 1.9, albumin 3.4. Coag studies are pending. PHYSICAL EXAMINATION: GENERAL: A pleasant white woman, who looks to be alert and oriented. She is accompanied by her . NECK: Trachea is midline. There is no jugular venous distention. LUNGS: Breath sounds are diminished bilaterally. There is no wheeze or rhonchi. A large Paresh wrap is noted around her torso with an ice pack. Upon removal of this, there is a sizable hematoma and ecchymosis of the soft tissue on right lateral chest wall and flank area. There is no sign of fluctuance particularly. ABDOMEN: Soft and nontender. PELVIS: Appears clinically stable. EXTREMITIES: Left leg shows a small hematoma on the left lateral calf area. DIAGNOSTIC DATA: CT scan was reviewed in detail. Imaging as previously described. ASSESSMENT: The patient has sustained a ground level fall and may or may not have had 10th and 11th rib fracture associated with this, but certainly no pneumothorax. Soft tissue swelling of the right flank area and chest wall is clearly a hematoma based on imaging studies of the CT scan. It developed rapidly upon presentation to emergency room, but appears to be stable clinically at this time. If there was active bleeding, then exploration and control of bleeding would certainly be needed obviously, appears stable at this time. I have asked an IV be started as she is only with a Hep-Lock at this time. I asked also that a CBC be repeated. She still may require evacuation of hematoma, though that is generally avoided if possible, so as to avoid contamination and infection, but certainly exploration would be undertaken without delay if ongoing bleeding was noted clinically or otherwise. The patient is disappointed and wants to go home, but she needs to be observed at minimum and managed as described. Jason Flood MD /MODL /[id number] Electronically Signed By: JASON FLOOD MD 09/10/192017 PATIENT NAME: NINFA PEPPER HISTORY AND PHYSICAL DATE OF : [birth year] REPORT #: [id number] PHYSICIAN: JASON FLOOD MD PCP: NO PRIMARY CARE PHYSICIAN REPORT IS CONFIDENTIAL AND NOT TO BE RELEASED WITHOUT AUTHORIZATION [address] [address] Signed cc: Dr. Dickens Copies: ~ Electronically Signed By: JASON FLOOD MD 09/10/19 2018 PATIENT NAME: NINFA PEPPER CURLY HISTORY AND PHYSICAL DATE OF : [birth year] REPORT #: [id number] PHYSICIAN: JASON FLOOD MD PCP: NO PRIMARY CARE PHYSICIAN REPORT IS CONFIDENTIAL AND NOT TO BE RELEASED WITHOUT AUTHORIZATION
--- NOTE | 2019-09-10 20:53 | NUR ---
SPOKE TO DR FLOOD ON THE TELEPHONE TO UPDATE HIM ON CURRENT H&H RESULT OF 8.[address] FLOOD CONTINUE TO MONITOR. OKAY TO CONITNUE VS FREQUENCY AT Q4HRS TO MONITOR VS. NO NEW ORDERS.
--- NOTE | 2019-09-10 21:00 | NUR ---
ATTEMPT TO GET PT UP TO BEDSIDE COMMODE, PER REQUEST. UNABLE TO DO SO D/T PAIN IN LEFT SIDE. BACK TO BED, USING BEDPAN, PT ALREADY INCONT LG AMOUNT URINE, PAINFUL, BUT ABLE TO GET ON BEDPAN. ABLE TO TO TURN MORE TO THE LEFT VS RIGHT. DID NOT VOID. WAS REPOSITIONED FOR COMFORT. DAUGHTER AND AT BEDSIDE.
--- NOTE | 2019-09-10 22:30 | NUR ---
ASSESSMENT COMPLETE, SCHEDULED MEDS GIVEN (SEE EMAR). PT RESTING IN BED AT THIS TIME, DENIES PAIN AT REST. WILL MONITOR. NO CHANGES IN HEMATOMA SINCE SHIFT REPORT, HEMATOMA REMIANS WITHIN OUTLINED AREA, SOMEWHAT FIRM AND TENDER TO THE TOUCH. IV FLUIDS INFUSING AT 85MLS/HR, SITE WNL. NO FURTHER NEEDS, CALL LIGHT IN REACH.
--- NOTE | 2019-09-10 23:36 | NUR ---
PT RESTING IN BED, EYES CLOSED. RESPIRATIONS EVEN AND UNLABORED. CALL LIGHT IN REACH. SPOKE TO FAMILY IN HALLWAY FOR PT UPDATE, QUESTIONS ANSWERED.
--- NOTE | 2019-09-11 00:25 | NUR ---
NEW BAG OF IV FLUIDS HUNG AND INFUSING AT 85MLS/HR, SITE WNL. FAMILY IN ROOM. PT DENIES NEED FOR PAIN MEDICATION AT THIS TIME. CALL LIGHT IN REACH.
--- NOTE | 2019-09-11 02:05 | NUR ---
PT RESTING IN BED, DENIES NEEDS. IV FLUIDS INFUSING AT 85MLS/HR, SITE WNL.
--- NOTE | 2019-09-11 03:29 | NUR ---
ASSESSMENT COMPLETE, VSS. PT ON RA, RR WNL. PT DENIES PAIN WHEN RESTING IN BED, DENIES WISHES FOR PAIN MEDICATION. WILL MONITOR FOR CHANGES. HEMATOMA TO RIGHT FLANK SLIGHTLY BEYOND OUTLINE AT PROXIMAL END OF BRUISE. NO CHANGES REGARDING FIRMNESS NOTED TO HEMATOMA. PT STATES, "I FEEL BETTER. IT DOESN'T HURT MUCH WHEN YOU PRESS ON IT IT DID EARLIER". WILL MONITOR. PT DENIES NAUSEA. IV FLUIDS INFUSING AT 85MLS/HR, SITE WNL. NO FURTHER NEEDS, CALL LIGHT IN REACH.
--- NOTE | 2019-09-11 06:41 | NUR ---
PT SLEPT ON AND OFF THIS SHIFT, VSS. PT DENIED PAIN WHEN RESTING IN BED AND DENIED NEED OF PAIN MEDICATIONS ALL SHIFT. 6AM H&H OF 7.7 AND 22.9. IV FLUIDS INFUSING AT 85MLS/HR, SITE WNL.
--- NOTE | 2019-09-11 07:05 | NUR ---
BEDSIDE HANDOFF REPORT RECEIVED FROM GPS FIELD DATA COLLECTOR RN. P TRESTING IN BED, DAUGHTER AT BEDSIDE. PT DENIES NEEDS AT THIS TIME.
--- NOTE | 2019-09-11 08:50 | NUR ---
PT RESTING IN BED. PT DENIES PAIN AT REST, REPORTS PAIN WITH MOVEMENT TO RIGHT SIDE. PT ON ROOM AIR, LUNG SOUNS CLEAR. PT WITH HEMATOMA TO LEFT LEFT WITHIN MARGIN, HEMATOMA TO RIGHT SIDE WITH SWELLING TO RIGHT SIDE. BOWEL TONES ACTIVE, DENIES NAUSEA, NPO AT THIS TIME FOR POSSIBLE SURGERY TODAY. IV FLUIDS INFUSING LR AT 85 ML/HR, IV PEPCID GIVEN. DR. FLOOD TO BEDSIDE, VERBAL ORDER TO RESTART HOME INHALER ANORO, APPLY BLE SCDS, DISCUSSED BLOOD TRANSFUSION AND POSSIBLE SURGERY LATER TODAY. CONSENT FOR BLOOD TRANSFUSION SIGNED AND WITNESSED. PT DENIES OTHER NEEDS AT THIS TIME.
--- NOTE | 2019-09-11 09:00 | NUR ---
CALLED DR. FLOOD TO CLARIFY DUONEB ORDER, ORDER TO STOP DUONEB, START ALBUTEROL BID AND PRN. NOTIFIED DR. FLOOD THAT PT UNABLE TO TOLERATE LEFT LEG SCD DUE TO PAIN AT HEMATOMA, MD DE LA CRUZ.
--- NOTE | 2019-09-11 10:35 | NUR ---
BLOOD TRANSFUSION UNIT 1 OF 2 STARTED. THIS RN REMIANED WITH PT FOR FIRST 15 MINUTES OF TRANSFUSION, WIHOUT S/S OF TRANSFUSION REACTION, PT INSTRUCTED TO NOTIFY RN IF HAVING ANY NEW SYMPTOMS, FAMILY AT BEDSIDE. BLOOD UNIT VERIFIED AGAINST PT BLODD BAND WITH MARY GARCIA BEFORE TRANSFUSION BEGAN.
--- NOTE | 2019-09-11 11:56 | NUR ---
PT RESTING IN BED, BLOOD TRANSFUSION CONTINUES TO INFUSE, FAMILY AT BEDSIDE.
--- NOTE | 2019-09-11 12:28 | NUR ---
BLOOD UNIT COMPLETED, SALINE FLUSH STARTED. RIGHT SIDE HEMATOMA WITH BRUISING WITHIN MARGINS, SWELLING APPEARS SLIGHTLY LARGER THAN THIS AM. ABD CIRCUMFERENCE MEASURED AND MARKED WITH PLASTIC TUBING, WILL CONTINUE TO MONITOR SWELLING. PT AND FAMILY DENY OTHER NEEDS AT THIS TIME.
--- NOTE | 2019-09-11 13:32 | NUR ---
BLOOD TRANSFUSION UNIT 2 OF 2 STARTED. 15 MIN VITALS COMPLETED. PT WITHOUT WIHOUT S/S OF TRANSFUSION REACTION, PT INSTRUCTED TO NOTIFY RN IF HAVING ANY NEW SYMPTOMS. CALL LIGHT IN REACH. DENIES NEEDS.
--- NOTE | 2019-09-11 14:56 | NUR ---
MD AT BEDSIDE. UNIT 2 OF 2 OF BLOOD TRANSFUSION CONTINUES TO INFUSE. FAMILY AT BEDSIDE.
--- NOTE | 2019-09-11 16:15 | NUR ---
PT COMPLETED WITH ECHO AND WITH BLOOD TRANSFUSION. NO S/S OF TRANSFUSION REACTION, VSS. PT COMPLAINT OF RIGHT SIDE AND BACK PAIN DURING ECHO, DISCUSSED PAIN MANAGEMENT WITH PT AND NEED TO CONTROL PAIN SO THAT SHE IS ABLE TO MOVE IN THE BED AND GET OOB, PT UNDERSTANDS AND REQUESTS PAIN MEDICATION, 2MG IV MORPHINE GIVEN.
--- NOTE | 2019-09-11 16:37 | NUR ---
DR. FLOOD CALLED ABOUT LABS AFTER BLOOD TRANSFUSION, VERBAL ORDER FOR CBC, DISCUSSED PAIN MANAGEMENT, PLAN TO CONTNUE WITH IV MORPHINE AND MAY ADD PO PAIN MEDICATION WHEN TAKING ORAL, DOES NOT FEEL A LIDOCAINE PATCH WILL BENEFIT PT AT THIS TIME. VERBAL ORDER FOR REGULAR DIET TONIGHT.
--- NOTE | 2019-09-11 17:06 | NUR ---
PT ASSISTED TO ORDER DINNER. LAB IN ROOM DRAWING CBC. PT PROVIDED WITH WATER. PT DENIES OTHER NEEDS AT THIS TIME.
--- NOTE | 2019-09-11 17:50 | NUR ---
PT TRANSFUSED WITH 2 UNITS PRBC TODAY, IMPROVED H/H. PT ON ROOM AIR, LUNG SOUNDS CLEAR. ECHO COMPLETED, AWAITING RESULTS. PT WITH PAIN WHEN MOVING, GIVEN MORPHINE X1 WITH GOOD RELIEF. PT WITH HEMATOMA TO RIGHT SIDE AND LEFT MANZANO, WIHTOUT SIGNIFICANT CHANGE. SCD TO RIGHT LEG UNABLE TO TOLERATE LEFT LEG. PT INCONTINENT OF URINE.
--- NOTE | 2019-09-11 19:15 | NUR ---
SHIFT REPORT RECEIVED FROM DAYSTNFT MARY CAMPUZANO AT BEDSIDE. PT AWAKE AND RESTING IN BED. FAMILY IN ROOM. RIGHT FLANK HEMATOMA AND LEFT KNEE/MANZANO HEMATOMA NOTED AND OUTLINED. NO NEEDS VERBALIED AT THIS TIME. CALL LIGHT IN REACH.
--- NOTE | 2019-09-11 21:06 | NUR ---
ASSESSMENT COMPLETE, SCHEDULED MEDS GIVEN (SEE EMAR). PRN MORPHINE ALSO GIVEN FOR 8/10 PAIN IN RIGHT FLANK AREA. HEMATOMA TO RIGHT FLANK NOTED, ABDOMINAL CIRCUMFRENCE MEASURED WITH PLASTIC TUBING, NO CHANGES NOTED. HEMATOMA TO RIGHT FLANK AND LEFT MANZANO OUTLINED. WILL MONITOR FOR INCREASING SWELLING OR EXPANSION OF HEMATOMA. PT DENIES ADDITIONAL NEEDS, CALL LIGHT IN REACH.
--- NOTE | 2019-09-11 22:30 | NUR ---
INFORMED PT WAS INCONTINENT AND COMPLETE BED CHANGE WAS COMPLETED. THIS RN IN ROOM TO REPOSITION PT PER PT REQUEST. INITIAL TEMP RESULT OF 99.3, IS DEMONSTRATED, REPEAT ORAL TEMP OF 98.4. PT DENIES ADDITIONAL NEEDS, CALL LIGHT IN REACH.
--- NOTE | 2019-09-11 22:44 | NUR ---
PT INCONTINENT. RN HELPED STORE LEADER COMPLETE LINEN CHANGE.
--- NOTE | 2019-09-12 01:01 | NUR ---
PT REPORTING 8/10 PAIN, PRN PAIN MEDICATIONS GIVEN (SEE EMAR). VSS, PT DENIES FURTHER NEEDS, CALL LIGHT IN REACH.
--- NOTE | 2019-09-12 01:20 | NUR ---
RIGHT LEG SCD AND LEFT FOOT SCD ON AT THIS TIME.
--- NOTE | 2019-09-12 03:30 | NUR ---
PT RESTING IN BED, EYES CLOSED, RESPIRATIONS EVEN AND UNLABORED. NO DISTRESS NOTED, FAMILY IN ROOM. CALL LIGHT IN REACH.
--- NOTE | 2019-09-12 05:33 | NUR ---
vss and i&o's done. pt incontinent, yovana care done, dry attends in place. pt repositioned in bed, no further needs. assessment complete, no new changes or concerns regarding right flank hematoma. pt denies pain at this time. call light in reach.
--- NOTE | 2019-09-12 06:48 | NUR ---
SCHEDULED THYROID PILL GIVEN (SEE EMAR). NEW BAG OF IV FLUIDS HUNG AND INFUSING AT 85MLS/HR, IV SITE WNL. NO FURTHER NEEDS, CALL LIGHT IN REACH.
--- NOTE | 2019-09-12 07:05 | NUR ---
BEDSIDE HANDOFF REPORT RECEIVED FROM SECURITY ALARM INSTALLER RN. PT SLEEPING, LEFT UNDSITURBED. LR INFUSING AT 85 ML/HR.
--- NOTE | 2019-09-12 08:30 | NUR ---
PT ON ROOM AIR, LUNG SOUNDS CLEAR. IV FLUIDS INFUSING LR AT 85ML/HR, IV PEPCID GIVEN PER ORDER. PT WITH RIGHT SIDE HEMATOMA, BRUISING IS MORE PURPLE TODAY BUT SWELLING IS UNCHANGED. LEFT MANZANO HEMATOMA UNCHANGED. CMS INTACT, WIHTOUT EDEMA, LEG SCD TO RIGHT LEG FOOT SCD TO LEFT LEG. PT DENIES PAIN AT THIS TIME. DISCUSSED PLAN OF CARE FOR THE DAY, AWAITING ECHO RESULTS, INCREASED ACTIVTY AND OOB. ALL QUESTIONS ANSWERED. PT DENIES OTHER NEEDS AT THIS TIME.
--- NOTE | 2019-09-12 10:49 | NUR ---
YESTERDAY PATIENT WAS IN TO MUCH PAIN TO TAKE A SHOWER. IT WAS EVEN HARD FOR HER TO ROLL TO CHANGE HER. SO WE ARE GOING TO TRY TODAY.
--- NOTE | 2019-09-12 11:10 | NUR ---
PT GIVEN 2 MG IV MORPHINE BEFORE ACTIVTY, INCREASED PAIN WITH MOVEMENT, PLAN FOR PT TO GET INTO SHOWER BEFORE LUNCH. PT DENIES OTHER NEEDS AT THIS TIME. AIDE TO ASSIST PT WITH SHOWER.
--- NOTE | 2019-09-12 12:52 | NUR ---
PT RESTING IN BED-ALERT, ORIENTED AND FAMILY AT BS. PT IS WAITING TO HEAR IF SHE WILL HAVE SURGERY LATER TODAY. HAD GOOD VISIT, PT REQUESTED PRAYER. PTS' DAUGHTER REQUESTED I CONTACT FAMILY RIDING INSTRUCTOR-WHICH I DID. WILL FOLLOW NEEDED
--- NOTE | 2019-09-12 14:30 | NUR ---
PT ASSISTED TO BATHROOM WITH 2PA WITH FWW, PT VERY SLOW TO AMBULATE, SPOUSE STATES AT BASELINE PT IS SLOW TO MOVE DUE TO ARTHRITIS. PT HAD BM AND HAD SHOWER. BED LINENS CHANGED. PT 2PA BACK TO BED. PT GIVEN 2 MG IV MORPHINE BEFORE ACTIVITY TO HELP WITH RIGHT SIDE PAIN. PT DENIES OTHER NEEDS AT THIS TIME.
--- NOTE | 2019-09-12 16:00 | NUR ---
PT RESTING IN BED. TRAMADOL GIVEN PER ORDER, PT DENIES PAIN AT REST. PT VOICING CONCERN ABOUT POSSIBLE DISCHARGE TOMORROW AND CARE AT HOME. PT WORRIED SHE IS GOING TO REQUIRE INCREASED LEVEL OF CARE AND HER SPOUSE WILL BE UNABLE TO PROVIDE THAT LEVEL. CASE MANAGEMENT CALLED AND WILL MEET WITH PT.
--- NOTE | 2019-09-12 17:07 | NUR ---
ASKED BY CURING MACHINE OPERATOR TO COME TALK WITH PATIENT AND FAMILY THEY HAVE SOME QUESTIONS REGARDING POSSIBLE HOME HEALTH. SPOKE WITH PATIENT, HER AND HER DAUGHTER IN ROOM. DISCUSSED HER DIAGNOSIS AND HER DISCHARGE PLAN. SHE STATES THEY HAVE BEEN TALKING AND SHE IS CONCERNED IF SHE IS READY TO GO HOME YET. SHE STATES SHE LIVES WITH HER WHO IS MAIN CAREGIVER. HE IS GETTING KNEE SURGERY COMING UP, BUT THAT THEY CAN POSTPONE THAT IF NEEDED. HER DAUGHTER IS FROM [place] AND COMES UP ABOUT TWICE A MONTH. THEY HAVE A BLUEPRINT CLERK WHO COMES TWICE A MONTH AND SHE HAS A POT FIRER WHO COMES IN ONCE A WEEK BUT IS RETIRING SOON. SHE STATES SHE HAS NOT BEEN UP MUCH YET IN ROOM. SHE DOES NOT FEEL SHE IS BASELINE YET ON HER ACTIVITY WHICH IS NORMALLY NEEDING ASSIST. SHE USES A WALKER AND A WHEELCHAIR AT HOME. WE DISCUSSED OPTIONS SUCH SNF, OR POSSIBLE TRANSITIONAL CARE PROGRAM IF NEEDED. WE DISCUSSED HOME HEALTH WHICH THEY HAVE HAD IN THE PAST AND ARE FAMILIAR WITH. AND DISCUSSED HIRING MORE HELP AT HOME THROUGH PERSONAL HIRING OR THAT THERE IS A COMPANY IN TOWN THAT THEY CAN GO THROUGH. WE DISCUSSED OUTPATIENT THERAPY ALSO. WE DISCUSSED THAT A PT EVAL HAS BEEN PLACED AND ONCE THAT IS DONE WE WILL KNOW MORE OF WHAT HER NEEDS ARE AND THEN A DECISION CAN BE MADE. THEY ARE VERY AGREEABLE TO THIS. QUESTIONS ANSWERED. WILL CONTINUE TO FOLLOW. UPDATED STAFF NURSE TATIANNA.
--- NOTE | 2019-09-12 19:11 | NUR ---
MIR AND I CHANGED HER. ALSO ORDERED HER BREAKFAST AND HER CAREGIVERS FOR TOMORROW MORNING.
--- NOTE | 2019-09-12 21:27 | NUR ---
COMMISSIONER OF CONCILIATION ROUNDING NOTE. PT'S PRIMARY RN AND ROD BENDING MACHINE OPERATOR IN ROOM. PT AND FAMILY DENY QUESTIONS OR CONCERNS AT THIS TIME. WHITE BOARD UPDATED. CALL LIGHT IN REACH.
--- NOTE | 2019-09-12 23:30 | NUR ---
PT HOB ELEVATED, RESTING, EYES CLOSED, NO C/O PAIN OR SOB . CALL LIGHT AT BEDSIDE,SCDS AND FOOT PUMP IN PLACE. NO FAMILY IN ROOM AT THIS TIME
--- NOTE | 2019-09-13 04:09 | NUR ---
resting, hob elevated to her comfort. nor adelso distress, call light at hands reach
--- NOTE | 2019-09-13 05:25 | NUR ---
pt has slept all shift, incontinent of large amounts of urine. declines to be turned or checked at night. Large R flank/hip hematoma, tender and firm to touch. L area below knee hematoma w/o changes. scds and foot pump in place. Tolerating fluids and diet well. received ultram and voltaren at begining of shift per pain, no further c/o or requests. call light at bedside. Family in room
--- NOTE | 2019-09-13 06:30 | NUR ---
Awakens easily, c/o tenderness R flank/hip hematoma area. helped with turning. Incontinent of urine, no redness. fresh attends in place. Tolerating fluids well. Levothroid given at this time as its her usual med time. using call light appropriately
--- NOTE | 2019-09-13 07:02 | NUR ---
PATIENT WAS CHANGE TWICE DURING THE NIGHT AND REPOSITION SEVERAL TIME, FRESH WATER WAS GIVEN AND CALL LIGHT IN REACH.
--- NOTE | 2019-09-13 07:15 | NUR ---
BEDSIDE HANDOFF REPORT RECEIVED FROM BICYCLE RACER RN. PT RESTING IN BED. PT DENIES NEEDS AT THIS TIME.
--- NOTE | 2019-09-13 08:30 | NUR ---
PT RESTING IN BED. SENIOR MANUFACTURING ENGINEER AT BEDSIDE FOR NEB. PT ON ROOM AIR, LUNG SOUNDS CLEAR. PT DENIES NAUSEA. PT REPORTS 0/10 AT REST, 1 TAB NORCO GIVEN FOR PROPHYLAXIS FOR P.T. EVAL THIS AM. RIGHT HEMATOMA WITH SLIGHTLY INCREASED BRUISING, SWELLING IS UNCHANGED. LEFT MANZANO HEMATOMA APPEARS SLIGHTLY LESS SWOLLEN, LESS PAINFUL TO TOUCH. IV SALINE LOCKED, FLUSHED, PATENT. DISCUSSED PLAN OF CARE FOR THE DAY. PT DENIES OTHER NEEDS AT THIS TIME.
--- NOTE | 2019-09-13 13:45 | NUR ---
PT GIVEN SCHEDULED TRAMADOL. PT REQUESTING PAIN MEDICATION BEFORE TAKING A WALK, PLAN FOR NORCO AT 1415 AND THEN TO WALK AT 1500. PT DENIES OTHER NEEDS AT THIS TIME.
--- NOTE | 2019-09-13 15:57 | NUR ---
PATIENT AMBULATED IN ROOM, 2PA, GAIT BELT, WALKER. PATIENT AMBULATED 3 TIMES AROUND BED. PATIENT DID VERY WELL AND HARDLY NEEDED ASSITANCE TO STAND. TOLERATED AMBULATION WELL AND DID NOT COMPLAIN OF ANY PAIN. PATIENT NOW BACK IN BED, FAMILY IN ROOM. CALL LIGHT IN REACH. NO FURTHER NEEDS AT THIS TIME.
--- NOTE | 2019-09-13 17:15 | NUR ---
SCHEDULED TRAMADOL GIVEN PER ORDER. PT STATES PAIN IS MUCH BETTER TODAY. WAS ABLE TO WALK WITH MINIMAL ASSISTANCE WITH NURSE AIDES THIS AFTERNOON. FAMILY AT BEDSIDE. PT DENIES OTHER NEEDS AT THIS TIME.
--- NOTE | 2019-09-13 18:42 | NUR ---
PT HAD BETTER DAY TODAY. PAIN WELL CONTROLLED WITH DICLOFENAC, TRAMADOL AND 1 TAB NORCO X2. PT ON ROOM AIR, LUNG SOUNDS CLEAR. BRUISING TO RIGHT SIDE SPREADING DOWNSIDE INTO UPPER THIGH, SWELLING IS UNCHANGE. PT ABLE TO TOLERATE WALKING WITH P.T. AND WITH NURSE AIDES, MINIMAL PAIN WITH WALKING. SALINE LOCKED, TOLERATING REGULAR DIET. PT INCONTINENT OF URINE, QS.
--- NOTE | 2019-09-13 20:06 | NUR ---
CONCERT PROMOTER ROUNDING NOTE. PT RESTING IN BED, MULTIPLE FAMILY MEMBERS PRESENT AT BEDSIDE VITING. PT DENIES QUESTIONS OR CONCERNS AT THIS TIME. FAMILY ASSURED THEY WERE NOT BEING TOO LOUD. FAMILY JOKES AND LAUGHS, DENIES NEEDS. CALL LIGHT IN PT'S REACH. WHITE BOARD UPDATED.
--- NOTE | 2019-09-13 22:04 | NUR ---
pt coop with assessment. incontinent of large amount of urine, skin care done. clean attends in place. Pt up to edge of bed, ambulated in room using gait belt, home walker and 2PA, slight sob with exertion noted, sats 94% on return to bed. No other c/o, medicated with scheduled ultram and voltaren, back to bed, scds R leg and foot pump L leg. Bruising R flank w/o changes. L below knee area w/o changes
--- NOTE | 2019-09-14 01:14 | NUR ---
RESTING, NO DISTRESS, RESP EVEN, UNLABORED, HOB ELEVATED TO HER COMFORT, PT AND FAMILY STATED EARLIER THAT PT NOT BE DISTURBED DURING THE NIGHT AND JUST CHANGE HER ATTENDS IN AM SHE IS INCONTINENT DURING THE NIGHT.
--- NOTE | 2019-09-14 02:00 | NUR ---
PT REPORT RECIEVED. CARE ASSUMED AT THIS TIME.
--- NOTE | 2019-09-14 04:25 | NUR ---
PT RESTING IN BED, BREATHING EVEN AND UNLABORED. CALL LIGHT WITHIN REACH. NO FURTHER NEEDS AT THIS TIME.
--- NOTE | 2019-09-14 06:27 | NUR ---
IN ROOM TO ASSESS PATIENT, MEDICATION ADMINISTRATION, AND TO PROVIDED INCONTINENT CARE. PT VOIDED A LARGE AMOUNT. TURNED WELL IN BED WITH MINIMAL PAIN. BRUISING HAS NOT INCREASED FROM PREVIOUSLY MARKED MARGINS. GIVEN FRESH WATER AND A WARM BLANKET. NO FURTHER NEEDS AT THIS TIME.
--- NOTE | 2019-09-14 07:13 | NUR ---
PT RESTING SUPINE IN BED EYES CLOSED AND RESPIRATIONS EVEN AND UNLABORED. CALL LIGHT AND H2O IN REACH. REPORT RECEIVED FROM MARY ANNA.
--- NOTE | 2019-09-14 09:04 | NUR ---
PT RESTING SUPINE IN BED ALERT AND ORIENTED WATCHING TV AND EATING BLUEBERRIES. PT ASSESSMENT COMPLETED AND AM MEDS ADMINISTERED. CALL LIGHT AND H2O IN REACH. NO NEEDS OR CONCERNS VOICED.
--- NOTE | 2019-09-14 11:43 | NUR ---
PT RESTING IN SEMIFOWLERS POSITION IN BED, REQEUSTS TO AMBULATE AND HAVE ATTENDS CHANGED. LILA CURIEL IN TO ASSIST PATIENT.
--- NOTE | 2019-09-14 14:56 | NUR ---
PT ALERT AND ORIETNED RESTING IN BED WATCHING TV. ASSESSMENT COMPLETED AND MED ADMINISTERED -SEE EMAR. PT DENIES PAIN SOB OR NAUSEA. NO NEEDS OR CONCERNS VOICED.
--- NOTE | 2019-09-14 16:55 | NUR ---
PT ALERT AND ORIENTED RESTING IN SEMIFOWLERS POSITION IN BED. PT DENIES NEEDS OR CONCERNS. CALL LIGHT AND H2O IN REACH.
--- NOTE | 2019-09-14 21:47 | NUR ---
ASSISTED PATIENT WALK AROUND THE BED TO BATHROOM AND BACK USING WALKER AND GAIT BELT. CHANGED PATIENT'S ATTENDS AND BLUE YANELIS WITH VOIDINGS. PATIENT IS BACK IN BED CALL LIGHT IN REACH. IN THE ROOM.
--- NOTE | 2019-09-15 00:20 | NUR ---
PT RESTING IN BED WITH EYES CLOSED. RESPIRATIONS EVEN AND UNLABORED. PT APPEARS TO BE SLEEPING. CALL LIGHT IN REACH.
--- NOTE | 2019-09-15 02:49 | NUR ---
PT RESTING IN BED WITH EYES CLOSED, MOUTH OPEN. RESPIRATIONS ARE EVEN AND UNLABORED. PT APPEARS TO BE SLEEPING. CALL LIGHT IN REACH.
--- NOTE | 2019-09-15 06:14 | NUR ---
PT ASSESSMENT COMPLETE. PT DENIES PAIN, NAUSEA, OR SOB. PT'S ATTENDS CHANGED. PT STATES THAT SHE DOES HAVE PAIN TO FLANK HEMATOMA WITH BED MOBILITY, DENIES NEED FOR PAIN MEDICATION. COFFEE PROVIDED. PT DENIES FURTHER NEEDS AT THIS TIME. CALL LIGHT IN REACH.
--- NOTE | 2019-09-15 07:41 | NUR ---
REPORT RECEIVED FROM MARY KATHLEEN. PT SITTING UP RIGHT IN BED BUT APPEARS TO BE ASLEEP.
--- NOTE | 2019-09-15 09:28 | NUR ---
PT IN BED FINISHING UP BREAKFAST. IN ROOM. RATES PAIN IN SIDE 7/10 WHEN MOVING. VS STABLE.
--- NOTE | 2019-09-15 10:30 | NUR ---
ASSUMING PATIENT CARE FROM PILY HERNANDEZ.
--- NOTE | 2019-09-15 10:45 | NUR ---
PT ASSISTED BACK TO BED AFTER WORKING WITH PHYSICAL THERAPY. PT REPORTS PAIN IS WELL MANAGED AT THIS TIME. SHE HAS HER GOING HOME CLOTHS ON AND REPORTS SHE IS READY TO GO HOME.
--- NOTE | 2019-09-15 11:54 | NUR ---
EMAILED THE REQUIRED DOCUMENTS TO ESTABLISH CARE FOR HOME HEALTH. I CALLED EARLIER AND FOUND OUT EXACTLY WHAT INFORMATION SHE NEEDED. WILL EMAIL HER THE DISCHARGE SUMMARY WHEN IT BECOMES AVAILABLE.
--- NOTE | 2019-09-15 12:05 | NUR ---
STOPPED IN AND SPOKE WITH PATIENT. SHE STATES SHE DID WELL OVER THE WEEKEND AND IS PLANNING TO GO HOME WITH POSSIBLE HOME HEALTH. SHE FEELS SHE IS READY FOR THIS. WILL CONTINUE TO FOLLOW.
[2019-09-15] MEDS ORDERED: FERROUS SULFAT325 MG PO (12:56)
[2019-09-15] MEDS ORDERED: HYDROCODON-ACE1 EA10 PO (12:56)
[2019-09-15] MEDS ORDERED: FAMOTIDINE20 MG PO (12:57)
[2019-09-15] MEDS ORDERED: TYLENOL EXTRA500 MG PO (12:57)
--- NOTE | 2019-09-15 13:19 | NUR ---
IV TAKEN OUT UPON RN REQUEST. CATH INTCAT AND LOOKED GOOD, RN NOTIFIED.
--- NOTE | 2019-09-15 13:30 | NUR ---
PT EDUCATION PROVIDED WITH DISCHARGE EDUCATIONS AND SCRIPT FOR BLOOD DRAW, AND NORCO. DISCUSSED ANY SIGNS OR SYMPTOMS TO SEEK MEDICAL CARE SOONER THAN FOLLOW UP APPOINTMENT. PT REPORTS SHE WILL HAVE PLENTY OF FAMILY TO ASSIST AMBULATING AT HOME. HOME HEALTH PHYSICAL THERAPY ORDERED AND FORMS SENT. PT REPORTS PAIN WELL MANAGED AT THIS TIME. FAMILY/SPOUSE IN ROOM FOR ALL EDCUATIONS. IV SITE REMOVED WNL. RIVAS FROM PHARMACY IN ROOM FOR MEDICATION EDCUATIONS. PT EAGER TO DISCHARGE.
--- NOTE | 2019-09-15 13:31 | NUR ---
PT SITTING ON SIDE OF BED, AND SON AT BS. PT PREPARING FOR DC LATER THIS PM. PT PLEASANT, ALERT AND ORIENTED. GAVE BLESSING, WILL FOLLOW NEEDED
--- NOTE | 2019-09-15 15:05 | NUR ---
CALLED TO SCHEDULE A FOLLOW UP APPT TO SEE DR FLOOD SINCE HIS OFFICE WAS CLOSED, HIS OFFICE IS GOING TO CALL PATIENT WITH THE APPOINTMENT TIME
--- NOTE | 2019-09-16 09:39 | DS ---
[facility] [address] [place], [place] [address] Signed ADMISSION DATE: 09/10/2019 DISCHARGE DATE: 09/15/2019 REASON FOR ADMISSION: This 89-year-old white woman is very frail and lives at home with her . She was getting out of bed at approximately 7 in the morning on the day of admission when she fell initially bruising her left leg, but with some amount of trauma hitting the nightstand on her right flank. She presented by EMS services to the emergency room and evaluated by Dr. Dickens. A contusion of her left anterolateral calf was noted as well as her right lateral abdominal wall. Lateral abdominal wall bruising became rapidly enlarging consistent with expanding hematoma. A chest x-ray was performed showing no sign of pneumothorax, but she did have possible rib buckling as noted on the subsequent CT scan that was ordered. The CT scan did show an extraabdominal and extrathoracic hematoma with a blush suggestive of active bleeding. There was no sign of pneumothorax in 10th and 11th ribs, may have had buckling but without gross fracture otherwise. She is admitted for further evaluation and care. PERTINENT PHYSICAL EXAMINATION: GENERAL: Showed a pleasant white woman with signs of dementia in anyway. She is alert and oriented. She is accompanied by her . NECK: Trachea is midline. No jugular venous distention. LUNGS: Breath sounds diminished bilaterally, but no wheeze or rhonchi. An Paresh wrap was noted around her torso in conjunction with an ice pack related to right anterolateral flank abdominal wall hematoma. A sizable hematoma of the size of a softball was noted. There is no sign of thrill within it. There is no fluctuance. ABDOMEN: Soft, nontender elsewhere. EXTREMITIES: Left leg showed a small hematoma of the left lateral calf area. DIAGNOSTIC DATA: Her initial hematocrit was 33.3. HOSPITAL COURSE: She was admitted and pressure applied to the hematoma site, which appeared not to be expanding. She was given intravenous fluids and pain control. The left leg hematoma was not expanding and was relatively small, about 4 cm in size. Monitoring of her CBC showed her to progress from 34.5 hematocrit down to 22.9 by September 11 at 5 in the morning, on that basis given her advanced age and so forth 2 units of blood were transfused. Post transfusion hematocrit was 33.3. She remained reasonably stable with her hematocrit from that point forward. Electronically Signed By: JASON FLOOD MD 09/16/19 0939 PATIENT NAME: NINFA EPPPER DISCHARGE SUMMARY DATE OF : 01/[birth year] REPORT #: [id number] PHYSICIAN: JASON FLOOD MD PCP: NO PRIMARY CARE PHYSICIAN REPORT IS CONFIDENTIAL AND NOT TO BE RELEASED WITHOUT AUTHORIZATION [facility] [address] [place] [id number] Signed The hematoma was well organized by day of discharge. Consideration had been made for drainage of the hematoma to expedite her recovery, however she does have underlying severe cardiac ailment including aortic stenosis. Evaluation was undertaken by the hospitalist, Dr. Arreaga. She underwent an echocardiogram, which did not show severe aortic stenosis, but did have significant pulmonary hypertension with elevated right ventricular pressures. In any case, plans for any operative intervention were deemed inadvisable under the circumstances as the hematoma was stable, not expanding, and her hematocrit was stable. We acknowledged that it will be a fair amount of time before the hematoma resolves itself. The risks of operation were deemed excessive in comparison to the hematoma itself. The patient is discharged to home in improved condition. Home health arrangements have been made for physical therapy two days a week and a home assessment by visiting nurse. This will be accomplished by the [facility] team. MEDICATIONS: Her discharge medications will include: 1. Iron sulfate 325 mg tablet one p.o. b.i.d. with meals #30. 2. [place] 5/325 one p.o. q.6 hours as needed for pain, #20. 3. Pepcid 20 mg p.o. q.12 hours #60, refill one. 4. Tylenol Extra Strength 500 mg 1-2 q.6 as needed for pain #60. She will resume her usual medications which include: 1. Pramipexole 0.25 mg h.s. 2. Tramadol 50 mg p.o. q.i.d. as needed (up to two pills q.i.d.). 3. Omeprazole 20 mg p.o. daily. 4. Synthroid 150 mcg p.o. daily. 5. Multivitamin one tablet p.o. daily. 6. Benefiber 1 tablespoon daily. 7. Losartan 100 mg p.o. daily. 8. Duloxetine 60 mg p.o. daily. 9. Diclofenac 50 mg p.o. daily. 10. Anoro Ellipta inhaler one inhalation daily. 11. Albuterol sulfate two puffs b.i.d. as needed for shortness of breath. 12. [place]-3 fatty acid, fish oil tablet one p.o. daily. 13. Vitamin A, C, and lutein one tablet p.o. daily. We will discontinue the famotidine that was previously described since she is previously on omeprazole. Electronically Signed By: JASON FLOOD MD 09/16/19 0939 PATIENT NAME: NINFA PEPPER DISCHARGE SUMMARY DATE OF : 01/25/[birth year] REPORT #: [id number] PHYSICIAN: JASON FLOOD MD PCP: NO PRIMARY CARE PHYSICIAN REPORT IS CONFIDENTIAL AND NOT TO BE RELEASED WITHOUT AUTHORIZATION [facility] [address] [place], [place] [address] Signed DISCHARGE DIAGNOSES: 1. Ground level fall with large expanding right flank hematoma with resultant anemia (hematocrit 22.3, status post transfusion of 2 units packed red cells). 2. Small hematoma of left leg related to ground level fall. 3. Chronic obstructive pulmonary disease. 4. Pulmonary hypertension with elevated right ventricular pressures, low-grade aortic stenosis. 5. Chronic pain issues. 6. Restless legs syndrome. 7. Clinical gastroesophageal reflux symptoms. 8. Hypothyroidism. 9. Hypertension. 10. Reactive airways. FOLLOWUP PLAN: She is to return to see me in approximately 4-6 weeks. A CBC will be obtained prior to her visit. She will return to the ongoing general care of Dr. Osman. MD SKY Peacock/MODL /[id number] cc: [facility] Copies: DARWIN ARREAGA DO ~ Electronically Signed By: JASON FLOOD MD 09/16/19 0939 PATIENT NAME: NINFA PEPPER DISCHARGE SUMMARY DATE OF : 01/25/[birth year] REPORT #: [id number] PHYSICIAN: JASON FLOOD MD PCP: NO PRIMARY CARE PHYSICIAN REPORT IS CONFIDENTIAL AND NOT TO BE RELEASED WITHOUT AUTHORIZATION
== END 2019-09-15 13:48 | disposition home health service (06) | DRG 605 ==
LOC: ED 07:18 → MS 12:41
PROVIDERS: ADMIT Surgery
PROC: 30233N1 Transfusion of Nonautologous Red Blood Cells into Peripheral Vein, Percutaneous Approach (ICD-10-PCS; principal; 2019-09-11)
DX: S30.1XXA Contusion of abdominal wall, initial encounter (principal); D62 Acute posthemorrhagic anemia; D68.51 Activated protein C resistance; S80.12XA Contusion of left lower leg, initial encounter; W06.XXXA Fall from bed, initial encounter; I35.0 Nonrheumatic aortic (valve) stenosis; J44.9 Chronic obstructive pulmonary disease, unspecified; I10 Essential (primary) hypertension; E03.9 Hypothyroidism, unspecified; G25.81 Restless legs syndrome; F39 Unspecified mood [affective] disorder; Y92.009 Unspecified place in unspecified non-institutional (private) residence as the place of occurrence of the external cause; Z88.8 Allergy status to other drugs, medicaments and biological substances; Z79.1 Long term (current) use of non-steroidal anti-inflammatories (NSAID); Z79.891 Long term (current) use of opiate analgesic; Z79.899 Other long term (current) drug therapy
CPT/HCPCS: 36415; 36430; 71046; 71260; 73590; 74160; 80053; 84484; 85025; 85610; 86850; 86900; 86901; 86920; 93005; 93010; 93306; 94640; 94760; 96374; 96375; 96376; 97110; 97116; 97163; 99285-25; J0131; J2270; J2405; J7121; P9016; Q9967